=== PATIENT | male | born 1970 | race Caucasian/White ===

== ENCOUNTER 2016-10-17 11:58 | Emergency (ER) | payer MEDICAID ==
[~2016-10-17] VITALS: Ht 175.3 cm; Wt 72.6 kg
[~2016-10-17 11:58] MED LIST: ASPI-231; DIVA500T53 OR; DIVA500T53 PO; FAMO20TA58; GABA100C; LISI-646; LISI-709; LORA1TAB12 OR; METO-5 PO; OXCA150T3; PAXIL PO; PHEN100C70 PO; RESPERIDOL; SIMV-8 PO; TRAZADONE PO
[2016-10-17 12:10] VITALS: BP 120/69
== END 2016-10-17 15:37 | disposition home or self-care (01) ==
LOC: EDBD 11:58 → ER 12:11
DX: R53.1 Weakness (principal); N39.0 Urinary tract infection, site not specified; T40.605A Adverse effect of unspecified narcotics, initial encounter; Y92.9 Unspecified place or not applicable; G89.29 Other chronic pain; M25.572 Pain in left ankle and joints of left foot; M25.531 Pain in right wrist; F41.9 Anxiety disorder, unspecified; J44.9 Chronic obstructive pulmonary disease, unspecified; K21.9 Gastro-esophageal reflux disease without esophagitis; E78.5 Hyperlipidemia, unspecified; F15.10 Other stimulant abuse, uncomplicated; I10 Essential (primary) hypertension; F17.210 Nicotine dependence, cigarettes, uncomplicated; Z88.0 Allergy status to penicillin; Z88.1 Allergy status to other antibiotic agents
CPT/HCPCS: 81002; 93005

== ENCOUNTER 2017-01-15 23:18 | Emergency (ER) | payer MEDICAID ==
[~2017-01-15] VITALS: Ht 172.7 cm; Wt 72.6 kg
[2017-01-16 00:04] LABS: Basophils # (auto) 0 uL; Basophils % (auto) 0.6 % (0.0-2.0); Eosinophils # (auto) 0.3 uL; Eosinophils % (auto) 3.5 % (0.0-7.0); Hematocrit 47.8 % (41.0-53.0); Hemoglobin 15.7 g/dL (13.5-17.5); Lymphocytes # (auto) 3.1 uL; Mean Corpuscular Hemoglobin 29.4 pg (28.0-32.0); Mean Corpuscular Hgb Conc. 32.8 g/dL (32.0-36.0); Mean Corpuscular Volume 89.7 fL (80.0-100.0); Mean Platelet Volume 8.1 fL (7.4-10.4); Monocytes # (auto) 0.6 uL; Monocytes % (auto) 7.5 % (0.0-12.0); Neutrophils # (auto) 4.1 uL; Neutrophils % (auto) 50.4 % (37.0-80.0); Platelet Count (auto) 355 10^3/uL (140-450); Red Cell Distribution Width 13.3 % (11.6-16.0); White Blood Cell 8.1 10^3/uL (4.4-10.8)
[2017-01-16 00:16] LABS: Albumin 3.6 g/dL (3.4-5.0); Amylase 72 U/L (25-115); Anion Gap 9 (5-15); Aspartate Aminotransferase 27 U/L (15-37); BUN/Creatinine Ratio 12.7; Blood Urea Nitrogen 10 mg/dL (7-18); Calcium 8.2 mg/dL (8.5-10.1); Carbon Dioxide 25 mmol/L (21-32); Chloride 109 mmol/L (98-107); GFR African American 137 mL/min; GFR Non-African American 113 mL/min; Glucose 103 mg/dL (74-106); INR 0.97 (0.9-1.15); Partial Thromboplastin Time 25.1 sec (22.64-33.71); Prothrombin Time 10.6 sec (9.37-12.3); Sodium 143 mmol/L (136-145)
[2017-01-16 00:21] LABS: Alkaline Phosphatase 78 U/L (45-117); Bilirubin, Total 0.3 mg/dL (0.2-1.0); Total Protein 6.8 g/dL (6.4-8.2)
[2017-01-16] MEDS ORDERED: SODIUM CHLORIDE 0.9% 1,000 ML IVB ONE (08:38)
[2017-01-16] MEDS ORDERED: KETOROLAC TROMETH 30 MG/ML 1ML VIAL IV ONE (08:45)
[2017-01-16 08:58] VITALS: BP 132/79
== END 2017-01-16 10:02 | disposition home or self-care (01) ==
LOC: ER 23:18
DX: R10.32 Left lower quadrant pain (principal); R30.0 Dysuria; J44.9 Chronic obstructive pulmonary disease, unspecified; K21.9 Gastro-esophageal reflux disease without esophagitis; F15.10 Other stimulant abuse, uncomplicated; F12.10 Cannabis abuse, uncomplicated; R11.2 Nausea with vomiting, unspecified; E78.5 Hyperlipidemia, unspecified; Z88.2 Allergy status to sulfonamides; Z88.0 Allergy status to penicillin; F17.210 Nicotine dependence, cigarettes, uncomplicated; Z88.1 Allergy status to other antibiotic agents; Z86.73 Personal history of transient ischemic attack (TIA), and cerebral infarction without residual deficits
CPT/HCPCS: 36415; 74176; 80053; 82150; 83690; 84484; 85025; 85610; 85730; 93005; 94761; 96361; 96374; 99285; J1885; J7030

== ENCOUNTER 2017-03-09 00:14 | Emergency (ER) | payer MEDICAID ==
[~2017-03-09] VITALS: Ht 180.3 cm; Wt 70.3 kg
[2017-03-09 01:31] LABS: Urine Bilirubin Negative (Negative); Urine Blood 1+ /uL (Negative); Urine Color Yellow (Yellow); Urine Glucose Normal (Normal); Urine Ketone Negative (Negative); Urine Mucus FEW (None Seen); Urine Nitrite Negative (Negative); Urine RBC 5 /hpf (0 - 3); Urine Sperm PRESENT /hpf (None Seen); Urine Squamous Epithelial Cell FEW /hpf (<5); Urine Urobilinogen Normal (Negative)
[2017-03-09 01:45] LABS: Basophils # (auto) 0 uL; Basophils % (auto) 0.4 % (0.0-2.0); CONDITION Y; Eosinophils # (auto) 0.1 uL; Eosinophils % (auto) 1.4 % (0.0-7.0); Hemoglobin 16.2 g/dL (13.5-17.5); Mean Corpuscular Hemoglobin 30.5 pg (28.0-32.0); Mean Corpuscular Hgb Conc. 33.8 g/dL (32.0-36.0); Mean Corpuscular Volume 90.2 fL (80.0-100.0); Mean Platelet Volume 7.8 fL (7.4-10.4); Monocytes # (auto) 0.7 uL; Monocytes % (auto) 8.4 % (0.0-12.0); Neutrophils # (auto) 5.6 uL; Neutrophils % (auto) 65.8 % (37.0-80.0); Platelet Count (auto) 348 10^3/uL (140-450); Red Cell Distribution Width 14.3 % (11.6-16.0); White Blood Cell 8.4 10^3/uL (4.4-10.8)
[2017-03-09 02:57] LABS: Albumin 4.3 g/dL (3.4-5.0); BUN/Creatinine Ratio 30.3; Bilirubin, Total 0.8 mg/dL (0.2-1.0); Calcium 8.8 mg/dL (8.5-10.1); Potassium 3.7 mmol/L (3.5-5.1); Total Protein 7.6 g/dL (6.4-8.2)
[2017-03-09 05:53] VITALS: BP 134/77
[2017-03-09] MEDS ORDERED: KETOROLAC TROMETH 60MG/2ML VIAL IM ONE (06:45)
== END 2017-03-09 08:39 | disposition home or self-care (01) ==
LOC: EDSEX 00:14 → EDBD 00:14 → ER 00:15
DX: R10.9 Unspecified abdominal pain (principal); R31.9 Hematuria, unspecified; F17.210 Nicotine dependence, cigarettes, uncomplicated; R19.7 Diarrhea, unspecified; E78.5 Hyperlipidemia, unspecified; I10 Essential (primary) hypertension; Z88.0 Allergy status to penicillin; Z88.1 Allergy status to other antibiotic agents; Z79.899 Other long term (current) drug therapy; Z79.82 Long term (current) use of aspirin; Z87.442 Personal history of urinary calculi
CPT/HCPCS: 36415; 80053; 81001; 85025; 96372; 99284; J1885

== ENCOUNTER 2017-04-06 14:35 | Emergency (ER) | payer MEDICAID ==
[~2017-04-06] VITALS: Ht 175.3 cm; Wt 77.1 kg
[2017-04-06 17:00] VITALS: BP 146/91
[2017-04-06] MEDS ORDERED: SODIUM CHLORIDE 0.9% 1,000 ML IV ONE ×2 (19:15→22:00)
[2017-04-06 19:57] LABS: Basophils # (auto) 0 uL; Basophils % (auto) 0.3 % (0.0-2.0); Eosinophils # (auto) 0.1 uL; Hematocrit 43.9 % (41.0-53.0); Lymphocytes # (auto) 2.8 uL; Lymphocytes % (auto) 35.1 % (10.0-50.0); Mean Corpuscular Hemoglobin 31.1 pg (28.0-32.0); Mean Corpuscular Hgb Conc. 34.1 g/dL (32.0-36.0); Mean Corpuscular Volume 91.2 fL (80.0-100.0); Mean Platelet Volume 7.4 fL (6.9-10.8); Monocytes # (auto) 0.9 uL; Monocytes % (auto) 11.6 % (0.0-12.0); Neutrophils # (auto) 4.1 uL; Platelet Count (auto) 276 10^3/uL (140-450); Red Cell Distribution Width 13.7 % (11.8-14.3); White Blood Cell 7.9 10^3/uL (4.4-10.8)
[2017-04-06 20:08] LABS: Amylase 56 U/L (25-115)
[2017-04-06 21:24] LABS: Albumin 3.7 g/dL (3.4-5.0); BUN/Creatinine Ratio 28.2; Bilirubin, Total 1.7 mg/dL (0.2-1.0); Calcium 7.7 mg/dL (8.5-10.1); Potassium 3.3 mmol/L (3.5-5.1); Total Protein 6.5 g/dL (6.4-8.2)
[2017-04-06 21:51] LABS: Urine Bilirubin Negative (Negative); Urine Blood 1+ /uL (Negative); Urine Color Yellow (Yellow); Urine Glucose Normal (Normal); Urine Ketone 1+ (Negative); Urine Mucus FEW (None Seen); Urine Nitrite Negative (Negative); Urine RBC 4 /hpf (0 - 3); Urine Urobilinogen Normal (Negative); Urine pH 5.5 (5.0-8.0)
[2017-04-06] MEDS ORDERED: KETOROLAC TROMETH 30 MG/ML 1ML VIAL IV ONE (22:00)
== END 2017-04-06 22:55 | disposition home or self-care (01) ==
LOC: ER 14:35 → EDBD 14:35 → ER 22:55
DX: N39.0 Urinary tract infection, site not specified (principal); E86.0 Dehydration; J44.9 Chronic obstructive pulmonary disease, unspecified; K21.9 Gastro-esophageal reflux disease without esophagitis; E78.5 Hyperlipidemia, unspecified; I10 Essential (primary) hypertension; F17.210 Nicotine dependence, cigarettes, uncomplicated; Z87.442 Personal history of urinary calculi; Z88.1 Allergy status to other antibiotic agents; Z79.899 Other long term (current) drug therapy; Z88.0 Allergy status to penicillin
CPT/HCPCS: 36415; 74176; 80053; 81001; 82150; 83690; 85025; 96361; 96374; 99285; J1885; J7030

== ENCOUNTER 2017-04-19 19:22 | Emergency (ER) | payer MEDICAID ==
[~2017-04-19] VITALS: Ht 175.3 cm; Wt 68.0 kg
[2017-04-19 21:41] LABS: Basophils # (auto) 0.1 uL; Basophils % (auto) 0.6 % (0.0-2.0); Eosinophils # (auto) 0.3 uL; Eosinophils % (auto) 3.4 % (0.0-7.0); Hemoglobin 15.5 g/dL (13.5-17.5); Lymphocytes # (auto) 2.7 uL; Lymphocytes % (auto) 29.5 % (10.0-50.0); Mean Corpuscular Hgb Conc. 33.7 g/dL (32.0-36.0); Mean Platelet Volume 7.4 fL (6.9-10.8); Monocytes # (auto) 0.8 uL; Monocytes % (auto) 8.5 % (0.0-12.0); Neutrophils # (auto) 5.2 uL; Nucleated Red Blood Cells % 0.2 %; Platelet Count (auto) 245 10^3/uL (140-450); Red Cell Distribution Width 14.2 % (11.8-14.3)
[2017-04-19 21:50] LABS: Urine Bilirubin Negative (Negative); Urine Blood Negative /uL (Negative); Urine Color Yellow (Yellow); Urine Glucose Normal (Normal); Urine Ketone Negative (Negative); Urine Nitrite Negative (Negative); Urine RBC 1 /hpf (0 - 3); Urine Urobilinogen Normal (Negative)
[2017-04-19 22:01] LABS: Acetaminophen < 2.0 ug/mL (10-30); Albumin 3.9 g/dL (3.4-5.0); Amylase 79 U/L (25-115); Anion Gap 8 (5-15); Blood Urea Nitrogen 16 mg/dL (7-18); Calcium 8.9 mg/dL (8.5-10.1); Carbon Dioxide 27 mmol/L (21-32); Chloride 109 mmol/L (98-107); Glucose 97 mg/dL (74-106); Magnesium 2.3 mg/dL (1.6-2.6); Potassium 4.2 mmol/L (3.5-5.1); Salicylate 1.8 mg/dL (2.8-20.0); Sodium 144 mmol/L (136-145)
[2017-04-19 22:03] LABS: Aspartate Aminotransferase 25 U/L (15-37); BUN/Creatinine Ratio 21.6; GFR African American 148 mL/min; GFR Non-African American 122 mL/min
[2017-04-19 22:05] LABS: Alkaline Phosphatase 70 U/L (45-117); Bilirubin, Total 0.3 mg/dL (0.2-1.0); Total Protein 6.6 g/dL (6.4-8.2)
[2017-04-20 07:42] VITALS: BP 162/85
== END 2017-04-20 10:19 | disposition home or self-care (01) ==
LOC: ER 19:25
DX: K59.01 Slow transit constipation (principal); G40.909 Epilepsy, unspecified, not intractable, without status epilepticus; F31.9 Bipolar disorder, unspecified; T88.7XXA Unspecified adverse effect of drug or medicament, initial encounter; J44.9 Chronic obstructive pulmonary disease, unspecified; K21.9 Gastro-esophageal reflux disease without esophagitis; E78.5 Hyperlipidemia, unspecified; I10 Essential (primary) hypertension; F12.10 Cannabis abuse, uncomplicated; F15.10 Other stimulant abuse, uncomplicated; Z88.0 Allergy status to penicillin; Z91.010 Allergy to peanuts; Z88.1 Allergy status to other antibiotic agents; Z91.018 Allergy to other foods; X58.XXXA Exposure to other specified factors, initial encounter
CPT/HCPCS: 36415; 74176; 80053; 80307; 80320; 80329; 81001; 82150; 83690; 83735; 84484; 85025

== ENCOUNTER 2017-06-16 16:30 | Emergency (ER) | payer MEDICAID ==
[~2017-06-16] VITALS: Ht 175.3 cm; Wt 68.9 kg
[2017-06-16 18:45] VITALS: BP 116/77
[2017-06-16] MEDS: ONDANSETRON HCL 4 MG/2 ML VIAL IM ONE (19:16)
[2017-06-16] MEDS: IBUPROFEN 600 MG TAB PO ONE (19:17)
== END 2017-06-16 19:32 | disposition home or self-care (01) ==
LOC: ER 16:30 → EDBD 16:30 → ER 19:32
DX: H92.02 Otalgia, left ear (principal); J44.9 Chronic obstructive pulmonary disease, unspecified; R10.84 Generalized abdominal pain; R11.2 Nausea with vomiting, unspecified; K21.9 Gastro-esophageal reflux disease without esophagitis; E78.5 Hyperlipidemia, unspecified; I10 Essential (primary) hypertension; F17.210 Nicotine dependence, cigarettes, uncomplicated; Z88.2 Allergy status to sulfonamides; Z88.1 Allergy status to other antibiotic agents; Z86.73 Personal history of transient ischemic attack (TIA), and cerebral infarction without residual deficits; Z79.899 Other long term (current) drug therapy; Z88.0 Allergy status to penicillin; Z79.82 Long term (current) use of aspirin
CPT/HCPCS: 96372; 99283; J2405

== ENCOUNTER 2017-06-17 00:43 | Emergency (ER) | payer MEDICAID ==
[~2017-06-17] VITALS: Ht 175.3 cm; Wt 68.0 kg
[2017-06-17 01:23] LABS: Basophils # (auto) 0.3 uL; Basophils % (auto) 3.8 % (0.0-2.0); Eosinophils # (auto) 0.1 uL; Eosinophils % (auto) 1.6 % (0.0-7.0); Hematocrit 49.3 % (41.0-53.0); Hemoglobin 16.7 g/dL (13.5-17.5); Lymphocytes # (auto) 1.1 uL; Lymphocytes % (auto) 13.3 % (10.0-50.0); Mean Corpuscular Hemoglobin 30.9 pg (28.0-32.0); Mean Corpuscular Hgb Conc. 33.9 g/dL (32.0-36.0); Mean Platelet Volume 7.1 fL (6.9-10.8); Monocytes # (auto) 1.2 uL; Monocytes % (auto) 15.2 % (0.0-12.0); Neutrophils # (auto) 5.2 uL; Neutrophils % (auto) 66.1 % (37.0-80.0); Nucleated Red Blood Cells % 0.1 %; Platelet Count (auto) 303 10^3/uL (140-450); Red Cell Distribution Width 14.1 % (11.8-14.3); White Blood Cell 7.9 10^3/uL (4.4-10.8)
[2017-06-17 01:42] LABS: Albumin 3.9 g/dL (3.4-5.0); BUN/Creatinine Ratio 24.1; Calcium 8.8 mg/dL (8.5-10.1); Potassium 3.9 mmol/L (3.5-5.1)
[2017-06-17 01:44] LABS: Bilirubin, Total 0.7 mg/dL (0.2-1.0); Total Protein 7.6 g/dL (6.4-8.2)
[2017-06-17 07:25] VITALS: BP 132/84
== END 2017-06-17 07:47 | disposition home or self-care (01) ==
LOC: ER 00:45
DX: R10.11 Right upper quadrant pain (principal); H92.02 Otalgia, left ear; Z88.2 Allergy status to sulfonamides; Z88.1 Allergy status to other antibiotic agents; Z91.010 Allergy to peanuts; Z88.0 Allergy status to penicillin; Z91.013 Allergy to seafood
CPT/HCPCS: 36415; 80053; 82150; 83690; 85025

== ENCOUNTER 2017-07-11 18:06 | Emergency (ER) | payer MEDICAID ==
[~2017-07-11] VITALS: Ht 180.3 cm; Wt 74.8 kg
[2017-07-11 18:46] LABS: Basophils # (auto) 0 uL; Basophils % (auto) 0.3 % (0.0-2.0); Eosinophils # (auto) 0.4 uL; Eosinophils % (auto) 5.1 % (0.0-7.0); Hemoglobin 16.6 g/dL (13.5-17.5); Lymphocytes # (auto) 2.4 uL; Lymphocytes % (auto) 30.8 % (10.0-50.0); Mean Corpuscular Hemoglobin 30.2 pg (28.0-32.0); Mean Corpuscular Hgb Conc. 33.2 g/dL (32.0-36.0); Mean Corpuscular Volume 91.2 fL (80.0-100.0); Monocytes # (auto) 0.6 uL; Neutrophils # (auto) 4.3 uL; Neutrophils % (auto) 55.8 % (37.0-80.0); Nucleated Red Blood Cells % 0.2 %; Platelet Count (auto) 291 10^3/uL (140-450); Red Blood Cells 5.48 10^6/uL (4.5-5.90); Red Cell Distribution Width 13.8 % (11.8-14.3); White Blood Cell 7.7 10^3/uL (4.4-10.8)
[2017-07-11 19:01] LABS: BUN/Creatinine Ratio 10.3; Calcium 8.6 mg/dL (8.5-10.1); Potassium 4.1 mmol/L (3.5-5.1)
[2017-07-11 19:04] LABS: Bilirubin, Total 0.5 mg/dL (0.2-1.0); Total Protein 7.4 g/dL (6.4-8.2)
[2017-07-12] MEDS ORDERED: SODIUM CHLORIDE 0.9% 1,000 ML IVB ONE (07:08)
[2017-07-12] MEDS ORDERED: PROMETHAZINE HCL 25 MG/ML 1ML IV PRN (07:15)
[2017-07-12] MEDS ORDERED: KETOROLAC TROMETH 30 MG/ML 1ML VIAL IV ONE (07:15)
[2017-07-12 09:30] VITALS: BP 128/77
[2017-07-12 10:04] LABS: Urine Blood Negative /uL (Negative); Urine Specific Gravity 1.012 (1.001-1.035)
[2017-07-12 10:12] LABS: Urine Bacteria None Seen /hpf (None Seen); Urine WBC None Seen /hpf (0 - 3)
== END 2017-07-12 10:36 | disposition home or self-care (01) ==
LOC: EDBD 18:06 → EEVIPCON 18:43 → ER 18:43
DX: K59.01 Slow transit constipation (principal); R56.9 Unspecified convulsions; K21.9 Gastro-esophageal reflux disease without esophagitis; J44.9 Chronic obstructive pulmonary disease, unspecified; I10 Essential (primary) hypertension; F17.210 Nicotine dependence, cigarettes, uncomplicated; E78.5 Hyperlipidemia, unspecified; Z86.73 Personal history of transient ischemic attack (TIA), and cerebral infarction without residual deficits; Z79.82 Long term (current) use of aspirin; Z88.0 Allergy status to penicillin; Z91.013 Allergy to seafood; Z88.2 Allergy status to sulfonamides
CPT/HCPCS: 36415; 74176; 80053; 81001; 82150; 83735; 85025; 96361; 96374; 99285; J1885; J7030

== ENCOUNTER 2017-07-22 16:52 | Emergency (ER) | payer MEDICAID ==
[~2017-07-22] VITALS: Ht 177.8 cm; Wt 81.6 kg
[2017-07-22 22:17] LABS: Basophils # (auto) 0.1 uL; Basophils % (auto) 0.6 % (0.0-2.0); Eosinophils # (auto) 0.2 uL; Eosinophils % (auto) 2.1 % (0.0-7.0); Hematocrit 50.5 % (41.0-53.0); Lymphocytes # (auto) 3.2 uL; Lymphocytes % (auto) 31.3 % (10.0-50.0); Mean Corpuscular Hemoglobin 30.7 pg (28.0-32.0); Mean Corpuscular Hgb Conc. 33.7 g/dL (32.0-36.0); Mean Corpuscular Volume 90.9 fL (80.0-100.0); Monocytes # (auto) 0.9 uL; Monocytes % (auto) 8.3 % (0.0-12.0); Neutrophils # (auto) 5.9 uL; Neutrophils % (auto) 57.7 % (37.0-80.0); Nucleated Red Blood Cells % 0.1 %; Platelet Count (auto) 320 10^3/uL (140-450); Red Blood Cells 5.56 10^6/uL (4.5-5.90); Red Cell Distribution Width 14.1 % (11.8-14.3); White Blood Cell 10.2 10^3/uL (4.4-10.8)
[2017-07-22 22:25] LABS: Albumin 4.3 g/dL (3.4-5.0); BUN/Creatinine Ratio 27.5; Calcium 9.2 mg/dL (8.5-10.1); Potassium 3.8 mmol/L (3.5-5.1)
[2017-07-22 22:27] LABS: Bilirubin, Total 0.6 mg/dL (0.2-1.0); Total Protein 7.6 g/dL (6.4-8.2)
[2017-07-22 22:44] LABS: Urine Bacteria NONE SEEN /hpf (None Seen); Urine Blood 1+ /uL (Negative); Urine Mucus FEW (None Seen); Urine Specific Gravity 1.031 (1.001-1.035); Urine WBC 7 /hpf (0 - 3)
[2017-07-22 22:56] LABS: Alcohol, Urine < 3.0 mg/dL (0-5); Amphetamine Screen, Urine NEGATIVE (NEGATIVE); Barbiturate Scree,Urine NEGATIVE (NEGATIVE); Benzodiazephine Screen, Urine NEGATIVE (NEGATIVE); Cannabinoid Screen, Urine NEGATIVE (NEGATIVE); Cocaine Screen, Urine NEGATIVE (NEGATIVE); Opiate Scree,Urine NEGATIVE (NEGATIVE); Phencyclidine Screen, Urine NEGATIVE (NEGATIVE)
[2017-07-23 00:02] VITALS: BP 139/78
[2017-07-23] MEDS ORDERED: MAGNESIUM CITRATE SOLUTION 300 ML BTL ONE (00:04)
[2017-07-23] MEDS ORDERED: MAGNESIUM CITRATE SOLUTION 300 ML BTL PO ONE (00:15)
== END 2017-07-23 00:55 | disposition home or self-care (01) ==
LOC: EDBD 16:52 → ER 16:52
DX: K59.00 Constipation, unspecified (principal); R10.31 Right lower quadrant pain; J44.9 Chronic obstructive pulmonary disease, unspecified; K21.9 Gastro-esophageal reflux disease without esophagitis; E78.5 Hyperlipidemia, unspecified; I10 Essential (primary) hypertension; F17.210 Nicotine dependence, cigarettes, uncomplicated; Z59.0 Homelessness; Z88.1 Allergy status to other antibiotic agents; Z91.013 Allergy to seafood
CPT/HCPCS: 36415; 74176; 80053; 80307; 81001; 82150; 83690; 85025

== ENCOUNTER 2017-07-23 03:00 | Emergency (ER) | payer MEDICAID ==
[~2017-07-23] VITALS: Ht 175.3 cm; Wt 68.0 kg
[2017-07-23 03:09] VITALS: BP 133/85
== END 2017-07-23 04:07 | disposition home or self-care (01) ==
LOC: EDBD 03:00 → ER 03:03
DX: K59.00 Constipation, unspecified (principal); K21.9 Gastro-esophageal reflux disease without esophagitis; J44.9 Chronic obstructive pulmonary disease, unspecified; I10 Essential (primary) hypertension; E78.5 Hyperlipidemia, unspecified; F17.210 Nicotine dependence, cigarettes, uncomplicated; Z59.0 Homelessness; Z86.73 Personal history of transient ischemic attack (TIA), and cerebral infarction without residual deficits; Z79.82 Long term (current) use of aspirin; Z88.0 Allergy status to penicillin; Z91.010 Allergy to peanuts; Z91.013 Allergy to seafood; Z88.2 Allergy status to sulfonamides; Z91.018 Allergy to other foods

== ENCOUNTER 2017-07-26 23:20 | Emergency (ER) | payer MEDICAID ==
[~2017-07-26] VITALS: Ht 175.3 cm; Wt 68.0 kg
[2017-07-27 03:46] LABS: Basophils # (auto) 0 uL; Basophils % (auto) 0.4 % (0.0-2.0); Eosinophils # (auto) 0.1 uL; Eosinophils % (auto) 0.5 % (0.0-7.0); Hematocrit 44.1 % (41.0-53.0); Hemoglobin 14.9 g/dL (13.5-17.5); Lymphocytes # (auto) 2.9 uL; Lymphocytes % (auto) 24.8 % (10.0-50.0); Mean Corpuscular Hemoglobin 30.2 pg (28.0-32.0); Mean Corpuscular Hgb Conc. 33.7 g/dL (32.0-36.0); Mean Corpuscular Volume 89.6 fL (80.0-100.0); Monocytes # (auto) 1.3 uL; Monocytes % (auto) 11.2 % (0.0-12.0); Neutrophils # (auto) 7.3 uL; Neutrophils % (auto) 63.1 % (37.0-80.0); Platelet Count (auto) 274 10^3/uL (140-450); Red Blood Cells 4.93 10^6/uL (4.5-5.90); Red Cell Distribution Width 13.9 % (11.8-14.3); White Blood Cell 11.6 10^3/uL (4.4-10.8)
[2017-07-27 04:02] LABS: Albumin 4.2 g/dL (3.4-5.0); BUN/Creatinine Ratio 26.7; Bilirubin, Total 2.1 mg/dL (0.2-1.0); Calcium 8.8 mg/dL (8.5-10.1); Potassium 3.7 mmol/L (3.5-5.1)
[2017-07-27 09:13] LABS: Urine Bacteria NONE SEEN /hpf (None Seen); Urine Blood TRACE /uL (Negative); Urine Mucus FEW (None Seen); Urine Specific Gravity 1.029 (1.001-1.035); Urine WBC 3 /hpf (0 - 3)
[2017-07-27 09:23] LABS: Alcohol, Urine < 3.0 mg/dL (0-5); Amphetamine Screen, Urine POSITIVE (NEGATIVE); Barbiturate Scree,Urine NEGATIVE (NEGATIVE); Benzodiazephine Screen, Urine NEGATIVE (NEGATIVE); Cannabinoid Screen, Urine NEGATIVE (NEGATIVE); Cocaine Screen, Urine NEGATIVE (NEGATIVE); Opiate Scree,Urine NEGATIVE (NEGATIVE); Phencyclidine Screen, Urine NEGATIVE (NEGATIVE)
[2017-07-27 11:06] VITALS: BP 122/66
== END 2017-07-27 11:08 | disposition home or self-care (01) ==
LOC: EDBD 23:20 → ER 23:38
DX: F15.10 Other stimulant abuse, uncomplicated (principal); J44.9 Chronic obstructive pulmonary disease, unspecified; E78.5 Hyperlipidemia, unspecified; I10 Essential (primary) hypertension; Z59.0 Homelessness; F17.210 Nicotine dependence, cigarettes, uncomplicated; Z88.0 Allergy status to penicillin; K21.9 Gastro-esophageal reflux disease without esophagitis; Z91.013 Allergy to seafood; Z88.8 Allergy status to other drugs, medicaments and biological substances; Z79.82 Long term (current) use of aspirin
CPT/HCPCS: 36415; 74176; 80053; 80307; 81001; 82150; 83690; 85025

== ENCOUNTER 2017-10-04 18:28 | Emergency (ER) | payer MEDICAID ==
[~2017-10-04] VITALS: Ht 175.3 cm; Wt 68.0 kg
[2017-10-04 19:08] LABS: Basophils # (auto) 0.1 uL; Basophils % (auto) 1.2 % (0.0-2.0); Eosinophils # (auto) 0.2 uL; Eosinophils % (auto) 2.4 % (0.0-7.0); Hemoglobin 16.3 g/dL (13.5-17.5); Lymphocytes # (auto) 1.7 uL; Lymphocytes % (auto) 24.6 % (10.0-50.0); Mean Corpuscular Hemoglobin 30.8 pg (28.0-32.0); Mean Corpuscular Hgb Conc. 33.2 g/dL (32.0-36.0); Mean Corpuscular Volume 92.7 fL (80.0-100.0); Monocytes # (auto) 0.7 uL; Monocytes % (auto) 9.8 % (0.0-12.0); Neutrophils # (auto) 4.2 uL; Nucleated Red Blood Cells % 0.2 %; Platelet Count (auto) 322 10^3/uL (140-450); Red Blood Cells 5.28 10^6/uL (4.5-5.90); Red Cell Distribution Width 14.7 % (11.8-14.3); White Blood Cell 6.8 10^3/uL (4.4-10.8)
[2017-10-04 19:28] LABS: Albumin 3.7 g/dL (3.4-5.0); BUN/Creatinine Ratio 18.4; Bilirubin, Total 0.3 mg/dL (0.2-1.0); Calcium 8.4 mg/dL (8.5-10.1); Potassium 3.6 mmol/L (3.5-5.1); Total Protein 6.8 g/dL (6.4-8.2)
[2017-10-05 02:15] VITALS: BP 132/82
== END 2017-10-05 02:27 | disposition home or self-care (01) ==
LOC: EDBD 18:28 → ER 18:33
DX: K21.9 Gastro-esophageal reflux disease without esophagitis (principal); J44.9 Chronic obstructive pulmonary disease, unspecified; E78.5 Hyperlipidemia, unspecified; I10 Essential (primary) hypertension; F17.210 Nicotine dependence, cigarettes, uncomplicated; Z59.0 Homelessness; Z88.1 Allergy status to other antibiotic agents; Z88.0 Allergy status to penicillin
CPT/HCPCS: 36415; 71045; 80053; 85025; 93005

== ENCOUNTER 2017-10-11 17:54 | Emergency (ER) | payer MEDICAID ==
[~2017-10-11] VITALS: Ht 175.3 cm; Wt 68.0 kg
[2017-10-11 19:05] VITALS: BP 113/82
[2017-10-11] MEDS ORDERED: TETANUS-DIPTH-ACEL PERTUSSIS 0.5ML SYRG IM ONE ×2 (19:30→19:31)
== END 2017-10-11 21:19 | disposition home or self-care (01) ==
LOC: ER 18:01
DX: S81.811A Laceration without foreign body, right lower leg, initial encounter (principal); M25.521 Pain in right elbow; I10 Essential (primary) hypertension; J44.9 Chronic obstructive pulmonary disease, unspecified; K21.9 Gastro-esophageal reflux disease without esophagitis; J45.909 Unspecified asthma, uncomplicated; E78.00 Pure hypercholesterolemia, unspecified; F17.210 Nicotine dependence, cigarettes, uncomplicated; Z86.73 Personal history of transient ischemic attack (TIA), and cerebral infarction without residual deficits; Z88.0 Allergy status to penicillin; Z88.1 Allergy status to other antibiotic agents; Z88.2 Allergy status to sulfonamides; Z88.8 Allergy status to other drugs, medicaments and biological substances; Z79.82 Long term (current) use of aspirin; Z79.891 Long term (current) use of opiate analgesic; Z79.899 Other long term (current) drug therapy; Z59.0 Homelessness; W26.8XXA Contact with other sharp object(s), not elsewhere classified, initial encounter; Y93.89 Activity, other specified; Y99.8 Other external cause status; Y92.89 Other specified places as the place of occurrence of the external cause
CPT/HCPCS: 12001; 73070; 90471; 90715

== ENCOUNTER 2017-11-20 15:39 | Emergency (ER) | payer MEDICAID ==
[~2017-11-20] VITALS: Ht 175.3 cm; Wt 68.0 kg
[2017-11-20 15:44] VITALS: BP 143/70
[2017-11-20 16:18] LABS: Basophils # (auto) 0.1 uL; Eosinophils # (auto) 0.3 uL; Eosinophils % (auto) 3.3 % (0.0-7.0); Hematocrit 49.1 % (41.0-53.0); Lymphocytes % (auto) 23.5 % (10.0-50.0); Mean Corpuscular Hemoglobin 31.7 pg (28.0-32.0); Mean Corpuscular Hgb Conc. 34.5 g/dL (32.0-36.0); Mean Corpuscular Volume 91.8 fL (80.0-100.0); Monocytes # (auto) 0.9 uL; Monocytes % (auto) 10.7 % (0.0-12.0); Neutrophils # (auto) 5.2 uL; Neutrophils % (auto) 61.5 % (37.0-80.0); Nucleated Red Blood Cells % 0.1 %; Platelet Count (auto) 291 10^3/uL (140-450); Red Blood Cells 5.35 10^6/uL (4.5-5.90); Red Cell Distribution Width 13.9 % (11.8-14.3); White Blood Cell 8.4 10^3/uL (4.4-10.8)
[2017-11-20 16:44] LABS: Albumin 4.1 g/dL (3.4-5.0); BUN/Creatinine Ratio 23.2; Bilirubin, Total 1.1 mg/dL (0.2-1.0); Calcium 8.8 mg/dL (8.5-10.1); Total Protein 7.4 g/dL (6.4-8.2)
== END 2017-11-20 17:01 | disposition home or self-care (01) ==
LOC: EDBD 15:39 → EDSEX 15:39 → ER 15:42
DX: R10.31 Right lower quadrant pain (principal); F17.210 Nicotine dependence, cigarettes, uncomplicated; J44.9 Chronic obstructive pulmonary disease, unspecified; K21.9 Gastro-esophageal reflux disease without esophagitis; E78.5 Hyperlipidemia, unspecified; I10 Essential (primary) hypertension; K92.1 Melena; Z79.82 Long term (current) use of aspirin; Z88.1 Allergy status to other antibiotic agents; Z91.013 Allergy to seafood; Z86.73 Personal history of transient ischemic attack (TIA), and cerebral infarction without residual deficits; Z88.0 Allergy status to penicillin; Z79.899 Other long term (current) drug therapy; Z59.0 Homelessness
CPT/HCPCS: 36415; 80053; 85025

== ENCOUNTER 2018-04-12 16:19 | Emergency (ER) | payer MEDICAID ==
[~2018-04-12] VITALS: Ht 175.3 cm; Wt 68.0 kg
[2018-04-12 16:26] VITALS: BP 137/73
== END 2018-04-12 17:54 | disposition home or self-care (01) ==
LOC: EDBD 16:19 → ER 16:19
DX: S51.002D Unspecified open wound of left elbow, subsequent encounter (principal); F17.210 Nicotine dependence, cigarettes, uncomplicated; F12.10 Cannabis abuse, uncomplicated; J44.9 Chronic obstructive pulmonary disease, unspecified; I10 Essential (primary) hypertension; E78.5 Hyperlipidemia, unspecified; K21.9 Gastro-esophageal reflux disease without esophagitis; Z59.0 Homelessness; X58.XXXD Exposure to other specified factors, subsequent encounter; Z88.2 Allergy status to sulfonamides; Z88.0 Allergy status to penicillin; Z88.8 Allergy status to other drugs, medicaments and biological substances

== ENCOUNTER 2018-05-04 16:09 | Emergency (ER) | payer MEDICAID ==
[~2018-05-04] VITALS: Ht 175.3 cm; Wt 61.2 kg
[2018-05-04 18:46] VITALS: BP 117/85
[2018-05-04 20:30] LABS: Basophils # (auto) 0 uL; Basophils % (auto) 0.5 % (0.0-2.0); Eosinophils # (auto) 0.3 uL; Hematocrit 49.8 % (41.0-53.0); Hemoglobin 16.4 g/dL (13.5-17.5); Lymphocytes # (auto) 2.6 uL; Lymphocytes % (auto) 33.3 % (10.0-50.0); Mean Corpuscular Hemoglobin 30.8 pg (28.0-32.0); Mean Corpuscular Volume 93.4 fL (80.0-100.0); Monocytes # (auto) 0.8 uL; Monocytes % (auto) 10.2 % (0.0-12.0); Neutrophils # (auto) 4.1 uL; Nucleated Red Blood Cells % 0.1 %; Platelet Count (auto) 249 10^3/uL (140-450); Red Blood Cells 5.34 10^6/uL (4.5-5.90); Red Cell Distribution Width 14.1 % (11.8-14.3); White Blood Cell 7.8 10^3/uL (4.4-10.8)
[2018-05-04 20:47] LABS: Albumin 3.3 g/dL (3.4-5.0); BUN/Creatinine Ratio 13.2; Calcium 8.5 mg/dL (8.5-10.1); Potassium 4.1 mmol/L (3.5-5.1)
[2018-05-04 20:55] LABS: Bilirubin, Total 0.4 mg/dL (0.2-1.0); Total Protein 6.2 g/dL (6.4-8.2)
[2018-05-04] MEDS ORDERED: IOHEXOL 300 MG/ML 100ML BOTTLE IJ ONE (21:03)
== END 2018-05-04 22:02 | disposition home or self-care (01) ==
LOC: EDBD 16:09 → EDUNIT# 16:09 → ER 16:12
DX: R10.31 Right lower quadrant pain (principal); B02.9 Zoster without complications; R11.0 Nausea; E78.5 Hyperlipidemia, unspecified; K21.9 Gastro-esophageal reflux disease without esophagitis; I10 Essential (primary) hypertension; J44.9 Chronic obstructive pulmonary disease, unspecified; F17.210 Nicotine dependence, cigarettes, uncomplicated; F15.90 Other stimulant use, unspecified, uncomplicated; Z88.1 Allergy status to other antibiotic agents; Z88.2 Allergy status to sulfonamides; Z88.0 Allergy status to penicillin; Z91.010 Allergy to peanuts; Z91.013 Allergy to seafood; Z79.899 Other long term (current) drug therapy; Z79.82 Long term (current) use of aspirin; Z86.73 Personal history of transient ischemic attack (TIA), and cerebral infarction without residual deficits; Z59.0 Homelessness
CPT/HCPCS: 36415; 74177; 76705; 80053; 83690; 85025; 99285; Q9967

== ENCOUNTER 2018-06-05 19:05 | Emergency (ER) | payer MEDICAID ==
[~2018-06-05] VITALS: Ht 175.3 cm; Wt 81.6 kg
[2018-06-05 20:42] LABS: Eosinophils # (auto) 0.2 uL; Lymphocytes # (auto) 1.8 uL; Red Blood Cells 5.73 10^6/uL (4.5-5.90); White Blood Cell 11.9 10^3/uL (4.4-10.8)
[2018-06-05 20:43] LABS: Basophils # (auto) 0 uL; Basophils % (auto) 0.3 % (0.0-2.0); Eosinophils % (auto) 1.9 % (0.0-7.0); Hematocrit 53.5 % (41.0-53.0); Hemoglobin 18.1 g/dL (13.5-17.5); Lymphocytes % (auto) 15.1 % (10.0-50.0); Mean Corpuscular Hemoglobin 31.6 pg (28.0-32.0); Mean Corpuscular Hgb Conc. 33.9 g/dL (32.0-36.0); Mean Corpuscular Volume 93.4 fL (80.0-100.0); Monocytes % (auto) 8.3 % (0.0-12.0); Neutrophils # (auto) 8.9 uL; Neutrophils % (auto) 74.4 % (37.0-80.0); Platelet Count (auto) 294 10^3/uL (140-450); Red Cell Distribution Width 14.3 % (11.8-14.3)
[2018-06-05 20:54] LABS: Alanine Aminotransferase 40 U/L (16-61); Amylase 60 U/L (25-115); Anion Gap 9 (5-15); Aspartate Aminotransferase 37 U/L (15-37); BUN/Creatinine Ratio 20.3; Blood Urea Nitrogen 16 mg/dL (7-18); Calcium 9.2 mg/dL (8.5-10.1); Carbon Dioxide 28 mmol/L (21-32); Chloride 103 mmol/L (98-107); GFR African American 136 mL/min; GFR Non-African American 113 mL/min; Glucose 102 mg/dL (74-106); Lipase 142 U/L (73-393); Magnesium 2.6 mg/dL (1.6-2.6); Potassium 3.9 mmol/L (3.5-5.1); Sodium 140 mmol/L (136-145)
[2018-06-05 21:00] LABS: Alkaline Phosphatase 86 U/L (45-117); Bilirubin, Total 1.2 mg/dL (0.2-1.0); Total Protein 7.3 g/dL (6.4-8.2)
[2018-06-05] MEDS ORDERED: SODIUM CHLORIDE 0.9% 1,000 ML IV ONE (23:15)
[2018-06-05] MEDS ORDERED: MORPHINE SULFATE 4 MG/ML SYR/VIAL IV ONE (23:15)
[2018-06-05] MEDS ORDERED: ONDANSETRON HCL 4 MG/2 ML VIAL IV ONE (23:15)
[2018-06-06] MEDS ORDERED: cefTRIAXone 1GM/50ML D5W 50 ML IV ONE ×2 (01:45→02:00)
[2018-06-06] MEDS ORDERED: metroNIDAZOLE 500 MG TAB PO ONE ×2 (01:45→02:00)
[2018-06-06 02:12] VITALS: BP 109/54
== END 2018-06-06 02:52 | disposition home or self-care (01) ==
LOC: EDBD 19:05 → ER 19:13
DX: K52.9 Noninfective gastroenteritis and colitis, unspecified (principal); I88.0 Nonspecific mesenteric lymphadenitis; J44.9 Chronic obstructive pulmonary disease, unspecified; E78.5 Hyperlipidemia, unspecified; I10 Essential (primary) hypertension; F17.210 Nicotine dependence, cigarettes, uncomplicated; F12.10 Cannabis abuse, uncomplicated; Z88.0 Allergy status to penicillin; Z88.2 Allergy status to sulfonamides; Z88.1 Allergy status to other antibiotic agents; Z91.013 Allergy to seafood; Z59.0 Homelessness; Z91.010 Allergy to peanuts
CPT/HCPCS: 36415; 74176; 80053; 82150; 83690; 83735; 84484; 85025; 93005; 96361; 96365; 96375; 99284; J0696; J2270; J2405; J7030

== ENCOUNTER 2018-06-22 16:37 | Emergency (ER) | payer MEDICAID ==
[~2018-06-22] VITALS: Ht 175.3 cm; Wt 65.8 kg
[2018-06-22 18:08] VITALS: BP 128/80
== END 2018-06-22 18:14 | disposition home or self-care (01) ==
LOC: EDBD 16:37 → EDUNIT# 16:37 → ER 16:39
DX: K46.9 Unspecified abdominal hernia without obstruction or gangrene (principal); J44.9 Chronic obstructive pulmonary disease, unspecified; K21.9 Gastro-esophageal reflux disease without esophagitis; E78.5 Hyperlipidemia, unspecified; I10 Essential (primary) hypertension; F17.210 Nicotine dependence, cigarettes, uncomplicated; F12.10 Cannabis abuse, uncomplicated; Z59.0 Homelessness; Z79.899 Other long term (current) drug therapy; Z88.1 Allergy status to other antibiotic agents; Z88.2 Allergy status to sulfonamides; Z91.010 Allergy to peanuts

== ENCOUNTER 2018-06-24 00:11 | Emergency (ER) | payer MEDICAID ==
[~2018-06-24] VITALS: Ht 177.8 cm; Wt 117.9 kg
[2018-06-24] MEDS ORDERED: NALBUPHINE HCL 10 MG/1ml INJECTION IV ONE (06:45)
[2018-06-24] MEDS ORDERED: ONDANSETRON HCL 4 MG/2 ML VIAL IV ONE (06:45)
[2018-06-24 07:27] LABS: Basophils # (auto) 0.1 uL; Eosinophils # (auto) 0.1 uL; Eosinophils % (auto) 1.2 % (0.0-7.0); Hemoglobin 16.9 g/dL (13.5-17.5); Lymphocytes # (auto) 1.9 uL; Lymphocytes % (auto) 21.2 % (10.0-50.0); Mean Corpuscular Hemoglobin 31.6 pg (28.0-32.0); Mean Corpuscular Hgb Conc. 33.8 g/dL (32.0-36.0); Mean Corpuscular Volume 93.3 fL (80.0-100.0); Monocytes # (auto) 0.8 uL; Monocytes % (auto) 9.2 % (0.0-12.0); Neutrophils % (auto) 67.4 % (37.0-80.0); Nucleated Red Blood Cells % 0.1 %; Platelet Count (auto) 291 10^3/uL (140-450); Red Blood Cells 5.36 10^6/uL (4.5-5.90); Red Cell Distribution Width 13.9 % (11.8-14.3); White Blood Cell 8.9 10^3/uL (4.4-10.8)
[2018-06-24 07:40] LABS: INR 0.99 (0.9-1.15); Partial Thromboplastin Time 25.3 sec (23.78-33.04); Prothrombin Time 10.6 sec (9.27-12.13)
[2018-06-24 07:44] LABS: Alanine Aminotransferase 35 U/L (16-61); Amylase 69 U/L (25-115); Anion Gap 4 (5-15); Aspartate Aminotransferase 27 U/L (15-37); BUN/Creatinine Ratio 22.7; Blood Urea Nitrogen 15 mg/dL (7-18); Calcium 8.7 mg/dL (8.5-10.1); Carbon Dioxide 25 mmol/L (21-32); Chloride 106 mmol/L (98-107); GFR African American 168 mL/min; GFR Non-African American 139 mL/min; Glucose 101 mg/dL (74-106); Lipase 112 U/L (73-393); Potassium 4.2 mmol/L (3.5-5.1); Sodium 135 mmol/L (136-145)
[2018-06-24 07:48] LABS: Alkaline Phosphatase 81 U/L (45-117); Bilirubin, Total 0.5 mg/dL (0.2-1.0); Total Protein 7.1 g/dL (6.4-8.2)
[2018-06-24 09:14] VITALS: BP 128/74
[2018-06-24] MEDS ORDERED: NALBUPHINE HCL 10 MG/1ml INJECTION IM ONE (09:45)
[2018-06-24] MEDS ORDERED: ONDANSETRON HCL 4 MG/2 ML VIAL IM ONE (09:45)
== END 2018-06-24 10:23 | disposition home or self-care (01) ==
LOC: EDUNIT# 00:11 → EDBD 00:11 → ER 00:17
DX: R10.11 Right upper quadrant pain (principal); R11.2 Nausea with vomiting, unspecified; J44.9 Chronic obstructive pulmonary disease, unspecified; K21.9 Gastro-esophageal reflux disease without esophagitis; E78.5 Hyperlipidemia, unspecified; F17.210 Nicotine dependence, cigarettes, uncomplicated; F12.90 Cannabis use, unspecified, uncomplicated; Z88.1 Allergy status to other antibiotic agents; Z88.2 Allergy status to sulfonamides; Z88.0 Allergy status to penicillin; Z91.010 Allergy to peanuts; Z91.013 Allergy to seafood; Z79.82 Long term (current) use of aspirin; Z79.899 Other long term (current) drug therapy; Z86.73 Personal history of transient ischemic attack (TIA), and cerebral infarction without residual deficits
CPT/HCPCS: 36415; 74176; 80053; 82150; 83690; 84484; 85025; 85610; 85730; 96372; 99284; J2300; J2405

== ENCOUNTER 2018-09-22 10:33 | Emergency (ER) | payer MEDICAID ==
[2018-09-22] MEDS ORDERED: traMADol HCL 50 MG TAB PO ONE (11:00)
== END 2018-09-22 12:34 | disposition left against medical advice (07) ==
LOC: ER 10:33 → EDBD 10:33 → ER 12:34
DX: K40.90 Unilateral inguinal hernia, without obstruction or gangrene, not specified as recurrent (principal); J44.9 Chronic obstructive pulmonary disease, unspecified; K21.9 Gastro-esophageal reflux disease without esophagitis; E78.5 Hyperlipidemia, unspecified; I10 Essential (primary) hypertension; F17.210 Nicotine dependence, cigarettes, uncomplicated; Z88.1 Allergy status to other antibiotic agents; Z88.0 Allergy status to penicillin; Z88.2 Allergy status to sulfonamides; Z91.013 Allergy to seafood; Z79.82 Long term (current) use of aspirin; Z79.899 Other long term (current) drug therapy; Z86.73 Personal history of transient ischemic attack (TIA), and cerebral infarction without residual deficits

== ENCOUNTER 2018-09-28 16:00 | Emergency (ER) | payer MEDICAID ==
[~2018-09-28] VITALS: Ht 177.8 cm; Wt 70.3 kg
[2018-09-28 16:40] LABS: Basophils # (auto) 0 uL; Basophils % (auto) 0.4 % (0.0-2.0); Eosinophils # (auto) 0.2 uL; Eosinophils % (auto) 3.1 % (0.0-7.0); Hematocrit 49.7 % (41.0-53.0); Hemoglobin 16.8 g/dL (13.5-17.5); Lymphocytes # (auto) 1.8 uL; Lymphocytes % (auto) 26.4 % (10.0-50.0); Mean Corpuscular Hemoglobin 31.4 pg (28.0-32.0); Mean Corpuscular Hgb Conc. 33.7 g/dL (32.0-36.0); Mean Corpuscular Volume 93.1 fL (80.0-100.0); Monocytes # (auto) 0.7 uL; Neutrophils % (auto) 59.1 % (37.0-80.0); Nucleated Red Blood Cells % 0.2 %; Platelet Count (auto) 267 10^3/uL (140-450); Red Blood Cells 5.34 10^6/uL (4.5-5.90); Red Cell Distribution Width 14.4 % (11.8-14.3); White Blood Cell 6.7 10^3/uL (4.4-10.8)
[2018-09-28 17:01] LABS: Albumin 4.1 g/dL (3.4-5.0); BUN/Creatinine Ratio 36.4; Calcium 8.9 mg/dL (8.5-10.1); Potassium 4.4 mmol/L (3.5-5.1)
[2018-09-28 17:03] LABS: Bilirubin, Total 0.3 mg/dL (0.2-1.0); Total Protein 7.2 g/dL (6.4-8.2)
[2018-09-28 17:30] VITALS: BP 123/78
== END 2018-09-28 18:13 | disposition home or self-care (01) ==
LOC: ER 16:04
DX: K59.00 Constipation, unspecified (principal); J44.9 Chronic obstructive pulmonary disease, unspecified; K21.9 Gastro-esophageal reflux disease without esophagitis; E78.00 Pure hypercholesterolemia, unspecified; I10 Essential (primary) hypertension; F17.210 Nicotine dependence, cigarettes, uncomplicated; F12.10 Cannabis abuse, uncomplicated; Z91.010 Allergy to peanuts; Z91.013 Allergy to seafood; Z88.0 Allergy status to penicillin; Z88.2 Allergy status to sulfonamides; Z88.1 Allergy status to other antibiotic agents; Z79.82 Long term (current) use of aspirin; Z79.899 Other long term (current) drug therapy
CPT/HCPCS: 36415; 74176; 80053; 82150; 83690; 85025

== ENCOUNTER → 2018-11-02 16:44 | Emergency (ER) | payer MEDICAID ==
[~2018-11-02] VITALS: Ht 175.3 cm; Wt 68.0 kg
[2018-11-02 17:40] LABS: Basophils # (auto) 0.1 uL; Basophils % (auto) 1.1 % (0.0-2.0); Eosinophils # (auto) 0.1 uL; Eosinophils % (auto) 1.9 % (0.0-7.0); Hematocrit 48.5 % (41.0-53.0); Hemoglobin 16.1 g/dL (13.5-17.5); Lymphocytes # (auto) 2.4 uL; Lymphocytes % (auto) 32.7 % (10.0-50.0); Mean Corpuscular Hemoglobin 31.2 pg (28.0-32.0); Mean Corpuscular Hgb Conc. 33.3 g/dL (32.0-36.0); Mean Corpuscular Volume 93.7 fL (80.0-100.0); Monocytes # (auto) 0.8 uL; Monocytes % (auto) 10.6 % (0.0-12.0); Neutrophils # (auto) 3.9 uL; Neutrophils % (auto) 53.7 % (37.0-80.0); Platelet Count (auto) 266 10^3/uL (140-450); Red Blood Cells 5.17 10^6/uL (4.5-5.90); White Blood Cell 7.3 10^3/uL (4.4-10.8)
[2018-11-02 17:58] LABS: Calcium 8.9 mg/dL (8.5-10.1); Potassium 4.1 mmol/L (3.5-5.1)
[2018-11-02 18:00] LABS: BUN/Creatinine Ratio 30.5; Bilirubin, Total 0.3 mg/dL (0.2-1.0); Total Protein 6.9 g/dL (6.4-8.2)
[2018-11-02 18:08] VITALS: BP 133/77
[2018-11-02 18:55] LABS: Urine WBC None Seen /hpf (0 - 3)
[2018-11-02 19:09] LABS: Urine Amorphous Crystal FEW /hpf (None Seen); Urine Bacteria NONE SEEN /hpf (None Seen); Urine Blood TRACE /uL (Negative); Urine Specific Gravity 1.015 (1.001-1.035)
== END | disposition home or self-care (01) ==
LOC: EDUNIT# 16:28 → ER 16:44 → EDBD 16:44
DX: K59.00 Constipation, unspecified (principal); F17.210 Nicotine dependence, cigarettes, uncomplicated; F12.90 Cannabis use, unspecified, uncomplicated; Z88.1 Allergy status to other antibiotic agents; Z88.0 Allergy status to penicillin; Z88.2 Allergy status to sulfonamides; Z91.010 Allergy to peanuts; Z91.013 Allergy to seafood; Z79.899 Other long term (current) drug therapy
CPT/HCPCS: 36415; 36600; 74176; 80053; 81001; 82805; 85025; 94761

== ENCOUNTER 2018-11-08 21:15 | Emergency (ER) | payer MEDICAID ==
[~2018-11-08] VITALS: Ht 175.3 cm; Wt 68.0 kg
[2018-11-08 22:12] LABS: Basophils # (auto) 0.1 uL; Eosinophils # (auto) 0.3 uL; Eosinophils % (auto) 3.4 % (0.0-7.0); Hematocrit 48.7 % (41.0-53.0); Hemoglobin 16.3 g/dL (13.5-17.5); Lymphocytes # (auto) 3.1 uL; Lymphocytes % (auto) 40.2 % (10.0-50.0); Mean Corpuscular Hemoglobin 31.2 pg (28.0-32.0); Mean Corpuscular Hgb Conc. 33.5 g/dL (32.0-36.0); Mean Corpuscular Volume 93.2 fL (80.0-100.0); Monocytes # (auto) 0.8 uL; Monocytes % (auto) 10.8 % (0.0-12.0); Neutrophils # (auto) 3.4 uL; Neutrophils % (auto) 44.6 % (37.0-80.0); Nucleated Red Blood Cells % 0.2 %; Platelet Count (auto) 270 10^3/uL (140-450); Red Blood Cells 5.23 10^6/uL (4.5-5.90); Red Cell Distribution Width 13.9 % (11.8-14.3); White Blood Cell 7.6 10^3/uL (4.4-10.8)
[2018-11-08 22:42] LABS: Albumin 3.9 g/dL (3.4-5.0); BUN/Creatinine Ratio 23.3; Calcium 9.2 mg/dL (8.5-10.1)
[2018-11-08 22:45] LABS: Bilirubin, Total 0.4 mg/dL (0.2-1.0); Total Protein 6.8 g/dL (6.4-8.2)
[2018-11-09 02:12] LABS: Urine Bacteria NONE SEEN /hpf (None Seen); Urine Blood TRACE /uL (Negative); Urine Specific Gravity 1.015 (1.001-1.035); Urine WBC <1 /hpf (0 - 3)
[2018-11-09 03:11] VITALS: BP 135/77
[2018-11-09] MEDS ORDERED: DOCUSATE SOD 100 MG CAP PO ONE (05:30)
== END 2018-11-09 05:48 | disposition home or self-care (01) ==
LOC: EDBD 21:15 → ER 21:22
DX: K59.00 Constipation, unspecified (principal); I10 Essential (primary) hypertension; J44.9 Chronic obstructive pulmonary disease, unspecified; E11.9 Type 2 diabetes mellitus without complications; K21.9 Gastro-esophageal reflux disease without esophagitis; E78.00 Pure hypercholesterolemia, unspecified; F17.210 Nicotine dependence, cigarettes, uncomplicated; Z88.1 Allergy status to other antibiotic agents; Z88.0 Allergy status to penicillin; Z88.2 Allergy status to sulfonamides; Z91.013 Allergy to seafood; Z91.010 Allergy to peanuts; Z79.82 Long term (current) use of aspirin; Z79.899 Other long term (current) drug therapy
CPT/HCPCS: 36415; 74176; 80053; 81001; 85025

== ENCOUNTER 2018-11-10 16:11 | Emergency (ER) | payer MEDICAID ==
[~2018-11-10] VITALS: Ht 177.8 cm; Wt 69.9 kg
[2018-11-10 17:13] LABS: Basophils # (auto) 0.1 uL; Eosinophils # (auto) 0.2 uL; Eosinophils % (auto) 2.3 % (0.0-7.0); Hematocrit 50.7 % (41.0-53.0); Hemoglobin 16.7 g/dL (13.5-17.5); Lymphocytes # (auto) 2.6 uL; Lymphocytes % (auto) 27.5 % (10.0-50.0); Mean Corpuscular Hgb Conc. 32.9 g/dL (32.0-36.0); Mean Corpuscular Volume 94.2 fL (80.0-100.0); Monocytes % (auto) 10.1 % (0.0-12.0); Neutrophils # (auto) 5.6 uL; Neutrophils % (auto) 59.1 % (37.0-80.0); Platelet Count (auto) 287 10^3/uL (140-450); Red Blood Cells 5.38 10^6/uL (4.5-5.90); Red Cell Distribution Width 14.2 % (11.8-14.3); White Blood Cell 9.4 10^3/uL (4.4-10.8)
[2018-11-10 17:25] LABS: Albumin 4.1 g/dL (3.4-5.0); Calcium 9.2 mg/dL (8.5-10.1); Potassium 4.6 mmol/L (3.5-5.1)
[2018-11-10 17:28] LABS: BUN/Creatinine Ratio 17.1; Bilirubin, Total 0.4 mg/dL (0.2-1.0); Total Protein 7.2 g/dL (6.4-8.2)
[2018-11-10 19:10] LABS: Urine Bacteria NONE SEEN /hpf (None Seen); Urine Blood TRACE /uL (Negative); Urine Specific Gravity 1.013 (1.001-1.035); Urine Sperm PRESENT /hpf (None Seen); Urine WBC <1 /hpf (0 - 3)
[2018-11-10] MEDS ORDERED: KETOROLAC TROMETH 60MG/2ML VIAL IM ONE (20:30)
[2018-11-10 21:09] VITALS: BP 124/64
== END 2018-11-10 21:14 | disposition home or self-care (01) ==
LOC: EDBD 16:11 → ER 16:15
DX: N13.9 Obstructive and reflux uropathy, unspecified (principal); J44.9 Chronic obstructive pulmonary disease, unspecified; E11.9 Type 2 diabetes mellitus without complications; K21.9 Gastro-esophageal reflux disease without esophagitis; E78.5 Hyperlipidemia, unspecified; I10 Essential (primary) hypertension; F17.210 Nicotine dependence, cigarettes, uncomplicated; F12.10 Cannabis abuse, uncomplicated; Z86.73 Personal history of transient ischemic attack (TIA), and cerebral infarction without residual deficits; Z88.1 Allergy status to other antibiotic agents; Z91.010 Allergy to peanuts; Z88.0 Allergy status to penicillin; Z91.013 Allergy to seafood; Z79.899 Other long term (current) drug therapy
CPT/HCPCS: 36415; 51702; 74176; 80053; 81001; 85025; 96372; 99284; J1885

== ENCOUNTER 2018-11-15 07:49 | Emergency (ER) | payer MEDICAID ==
[~2018-11-15] VITALS: Ht 175.3 cm; Wt 68.0 kg
[2018-11-15 08:30] LABS: Basophils # (auto) 0 uL; Basophils % (auto) 0.5 % (0.0-2.0); Eosinophils # (auto) 0.2 uL; Eosinophils % (auto) 2.7 % (0.0-7.0); Hematocrit 51.7 % (41.0-53.0); Hemoglobin 17.5 g/dL (13.5-17.5); Lymphocytes # (auto) 1.9 uL; Lymphocytes % (auto) 23.1 % (10.0-50.0); Mean Corpuscular Hemoglobin 31.4 pg (28.0-32.0); Mean Corpuscular Hgb Conc. 33.8 g/dL (32.0-36.0); Mean Corpuscular Volume 92.8 fL (80.0-100.0); Monocytes # (auto) 0.7 uL; Monocytes % (auto) 8.7 % (0.0-12.0); Neutrophils # (auto) 5.5 uL; Nucleated Red Blood Cells % 0.2 %; Platelet Count (auto) 281 10^3/uL (140-450); Red Blood Cells 5.57 10^6/uL (4.5-5.90); Red Cell Distribution Width 14.1 % (11.8-14.3); White Blood Cell 8.4 10^3/uL (4.4-10.8)
[2018-11-15 08:32] LABS: Urine Bacteria NONE SEEN /hpf (None Seen); Urine Blood 1+ /uL (Negative); Urine Mucus FEW (None Seen); Urine Specific Gravity 1.016 (1.001-1.035); Urine WBC 3 /hpf (0 - 3)
[2018-11-15] MEDS ORDERED: SODIUM CHLORIDE 0.9% 1,000 ML IV ONE (08:42)
[2018-11-15] MEDS ORDERED: SODIUM CHLORIDE 0.9% 500 ML IVB ONE (08:42)
[2018-11-15] MEDS ORDERED: PROMETHAZINE HCL 25 MG/ML 1ML IV PRN (08:45)
[2018-11-15] MEDS ORDERED: KETOROLAC TROMETH 30 MG/ML 1ML VIAL IV ONE ×2 (08:45→15:15)
[2018-11-15 08:55] LABS: Albumin 4.1 g/dL (3.4-5.0); Anion Gap 4 (5-15); Blood Urea Nitrogen 19 mg/dL (7-18); Calcium 8.6 mg/dL (8.5-10.1); Carbon Dioxide 27 mmol/L (21-32); Chloride 107 mmol/L (98-107); Glucose 100 mg/dL (74-106); Potassium 4.4 mmol/L (3.5-5.1); Sodium 138 mmol/L (136-145)
[2018-11-15 09:01] LABS: Alanine Aminotransferase 42 U/L (16-61); Alkaline Phosphatase 72 U/L (45-117); Aspartate Aminotransferase 25 U/L (15-37); BUN/Creatinine Ratio 27.5; Bilirubin, Total 0.7 mg/dL (0.2-1.0); GFR African American 159 mL/min; GFR Non-African American 131 mL/min; Total Protein 7.3 g/dL (6.4-8.2)
[2018-11-15 09:13] LABS: Magnesium 2.5 mg/dL (1.6-2.6)
[2018-11-15] MEDS ORDERED: cefTRIAXone 1GM/50ML D5W 50 ML IV ONE (12:30)
[2018-11-15 13:11] VITALS: BP 135/78
== END 2018-11-15 16:33 | disposition home or self-care (01) ==
LOC: EDBD 07:49 → ER 07:52
DX: N40.0 Benign prostatic hyperplasia without lower urinary tract symptoms (principal); N39.0 Urinary tract infection, site not specified; F20.9 Schizophrenia, unspecified; F31.9 Bipolar disorder, unspecified; J44.9 Chronic obstructive pulmonary disease, unspecified; E11.9 Type 2 diabetes mellitus without complications; K21.9 Gastro-esophageal reflux disease without esophagitis; E78.5 Hyperlipidemia, unspecified; I10 Essential (primary) hypertension; F17.210 Nicotine dependence, cigarettes, uncomplicated; Z88.1 Allergy status to other antibiotic agents; Z88.2 Allergy status to sulfonamides; Z88.0 Allergy status to penicillin; Z91.018 Allergy to other foods; Z91.013 Allergy to seafood; Z79.82 Long term (current) use of aspirin; Z79.899 Other long term (current) drug therapy; Z86.73 Personal history of transient ischemic attack (TIA), and cerebral infarction without residual deficits
CPT/HCPCS: 36415; 76775; 80053; 81001; 83690; 83735; 84484; 85025; 93005; 96361; 96365; 96375; 96376; 99284; J0696; J1885; J2550; J7030; J7040

== ENCOUNTER 2018-11-22 18:19 | Emergency (ER) | payer MEDICAID ==
[~2018-11-22] VITALS: Ht 175.3 cm; Wt 68.0 kg
[2018-11-22 19:26] LABS: Urine Bacteria FEW /hpf (None Seen); Urine Blood 1+ /uL (Negative); Urine Specific Gravity 1.023 (1.001-1.035); Urine WBC 21 /hpf (0 - 3)
[2018-11-22] MEDS ORDERED: SODIUM CHLORIDE 0.9% 1,000 ML IV ONE (21:15)
[2018-11-22] MEDS ORDERED: MORPHINE SULFATE 4 MG/ML SYR/VIAL IV ONE (21:15)
[2018-11-22] MEDS ORDERED: ONDANSETRON HCL 4 MG/2 ML VIAL IV ONE ×2 (21:15→23:00)
[2018-11-22 21:26] LABS: Albumin 3.9 g/dL (3.4-5.0); Calcium 8.3 mg/dL (8.5-10.1); Potassium 4.3 mmol/L (3.5-5.1)
[2018-11-22 21:31] LABS: BUN/Creatinine Ratio 33.7; Bilirubin, Total 0.4 mg/dL (0.2-1.0); Total Protein 7.3 g/dL (6.4-8.2)
[2018-11-22 21:33] LABS: Basophils # (auto) 0 uL; Basophils % (auto) 0.6 % (0.0-2.0); Eosinophils # (auto) 0.3 uL; Eosinophils % (auto) 4.3 % (0.0-7.0); Hematocrit 49.7 % (41.0-53.0); Hemoglobin 16.8 g/dL (13.5-17.5); Lymphocytes # (auto) 1.6 uL; Lymphocytes % (auto) 21.4 % (10.0-50.0); Mean Corpuscular Hemoglobin 31.4 pg (28.0-32.0); Mean Corpuscular Hgb Conc. 33.9 g/dL (32.0-36.0); Mean Corpuscular Volume 92.8 fL (80.0-100.0); Monocytes # (auto) 0.9 uL; Monocytes % (auto) 12.2 % (0.0-12.0); Neutrophils # (auto) 4.6 uL; Neutrophils % (auto) 61.5 % (37.0-80.0); Nucleated Red Blood Cells % 0.1 %; Platelet Count (auto) 298 10^3/uL (140-450); Red Blood Cells 5.36 10^6/uL (4.5-5.90); Red Cell Distribution Width 14.1 % (11.8-14.3); White Blood Cell 7.5 10^3/uL (4.4-10.8)
[2018-11-22 22:42] LABS: Alcohol, Urine < 3.0 mg/dL (0-5); Amphetamine Screen, Urine NEGATIVE (NEGATIVE); Barbiturate Scree,Urine NEGATIVE (NEGATIVE); Benzodiazephine Screen, Urine NEGATIVE (NEGATIVE); Cannabinoid Screen, Urine NEGATIVE (NEGATIVE); Cocaine Screen, Urine NEGATIVE (NEGATIVE); Opiate Scree,Urine NEGATIVE (NEGATIVE); Phencyclidine Screen, Urine NEGATIVE (NEGATIVE)
[2018-11-22] MEDS ORDERED: MORPHINE SULF INJ 2 MG/ML SYRINGE 1ML IV ONE (23:00)
[2018-11-22 23:53] VITALS: BP 111/68
[2018-11-23] MEDS ORDERED: cefTRIAXone SOD 1,000 MG VL IM ONE
[2018-11-23] MEDS ORDERED: MAGNESIUM CITRATE SOLUTION 300 ML BTL PO ONE
[2018-11-23] MEDS ORDERED: VANCOMYCIN HCL 125MG/5ML ORAL SOL PO ONE (01:00)
== END 2018-11-23 01:27 | disposition home or self-care (01) ==
LOC: EDUNIT# 18:19 → EDBD 18:19 → ER 18:23
DX: N39.0 Urinary tract infection, site not specified (principal); K59.00 Constipation, unspecified; J44.9 Chronic obstructive pulmonary disease, unspecified; E11.9 Type 2 diabetes mellitus without complications; K21.9 Gastro-esophageal reflux disease without esophagitis; E78.5 Hyperlipidemia, unspecified; I10 Essential (primary) hypertension; F17.210 Nicotine dependence, cigarettes, uncomplicated; Z88.2 Allergy status to sulfonamides; Z88.0 Allergy status to penicillin; Z88.1 Allergy status to other antibiotic agents; Z91.010 Allergy to peanuts; Z91.013 Allergy to seafood; Z79.82 Long term (current) use of aspirin; Z79.899 Other long term (current) drug therapy; Z86.73 Personal history of transient ischemic attack (TIA), and cerebral infarction without residual deficits
CPT/HCPCS: 36415; 74176; 80053; 80307; 81001; 85025; 93005; 96374; 96375; 96376; 99284; J2270; J2405; J7030

== ENCOUNTER 2018-11-26 13:41 | Emergency (ER) | payer MEDICAID ==
[~2018-11-26] VITALS: Ht 172.7 cm; Wt 68.0 kg
[2018-11-26 14:59] LABS: Basophils # (auto) 0 uL; Basophils % (auto) 0.6 % (0.0-2.0); Eosinophils # (auto) 0.2 uL; Eosinophils % (auto) 2.2 % (0.0-7.0); Hematocrit 47.7 % (41.0-53.0); Hemoglobin 16.1 g/dL (13.5-17.5); Lymphocytes # (auto) 1.8 uL; Lymphocytes % (auto) 22.8 % (10.0-50.0); Mean Corpuscular Hemoglobin 31.3 pg (28.0-32.0); Mean Corpuscular Hgb Conc. 33.8 g/dL (32.0-36.0); Mean Corpuscular Volume 92.6 fL (80.0-100.0); Monocytes # (auto) 0.7 uL; Monocytes % (auto) 8.5 % (0.0-12.0); Neutrophils # (auto) 5.2 uL; Neutrophils % (auto) 65.9 % (37.0-80.0); Platelet Count (auto) 314 10^3/uL (140-450); Red Blood Cells 5.15 10^6/uL (4.5-5.90); Red Cell Distribution Width 13.8 % (11.8-14.3); White Blood Cell 7.9 10^3/uL (4.4-10.8)
[2018-11-26 15:18] LABS: Alanine Aminotransferase 44 U/L (16-61); Albumin 3.9 g/dL (3.4-5.0); Anion Gap 11 (5-15); Aspartate Aminotransferase 37 U/L (15-37); BUN/Creatinine Ratio 26.5; Blood Urea Nitrogen 22 mg/dL (7-18); Calcium 8.9 mg/dL (8.5-10.1); Carbon Dioxide 25 mmol/L (21-32); Chloride 106 mmol/L (98-107); GFR African American 128 mL/min; GFR Non-African American 106 mL/min; Glucose 89 mg/dL (74-106); Potassium 4.3 mmol/L (3.5-5.1); Sodium 142 mmol/L (136-145)
[2018-11-26 15:20] LABS: Alkaline Phosphatase 79 U/L (45-117); Bilirubin, Total 0.6 mg/dL (0.2-1.0); Total Protein 7.3 g/dL (6.4-8.2)
[2018-11-26 16:30] VITALS: BP 144/75
== END 2018-11-26 17:46 | disposition home or self-care (01) ==
LOC: ER 13:41 → EDBD 13:41 → ER 17:46
DX: M54.9 Dorsalgia, unspecified (principal); M79.18 Myalgia, other site; R33.9 Retention of urine, unspecified; J44.9 Chronic obstructive pulmonary disease, unspecified; E11.9 Type 2 diabetes mellitus without complications; K21.9 Gastro-esophageal reflux disease without esophagitis; E78.5 Hyperlipidemia, unspecified; I10 Essential (primary) hypertension; F17.210 Nicotine dependence, cigarettes, uncomplicated; Z87.440 Personal history of urinary (tract) infections; Z86.73 Personal history of transient ischemic attack (TIA), and cerebral infarction without residual deficits
CPT/HCPCS: 36415; 51702; 80053; 81002; 85025; 93005

== ENCOUNTER 2018-12-01 16:28 | Emergency (ER) | payer MEDICAID ==
[~2018-12-01] VITALS: Ht 175.3 cm; Wt 81.6 kg
[2018-12-01 19:04] LABS: Urine Bacteria NONE SEEN /hpf (None Seen); Urine Blood 2+ /uL (Negative); Urine Mucus FEW (None Seen); Urine Specific Gravity 1.027 (1.001-1.035); Urine WBC 11 /hpf (0 - 3)
[2018-12-01] MEDS ORDERED: PHENAZOPYRIDINE HCL 100 MG TAB PO ONE (19:45)
[2018-12-01] MEDS ORDERED: ONDANSETRON HCL 4 MG/2 ML VIAL IV ONE ×2 (20:15→22:15)
[2018-12-01] MEDS ORDERED: HYDROmorphone HCL 2 MG/ML VL IV ONE (20:15)
[2018-12-01] MEDS ORDERED: HYDROcodone-ACET 7.5/325MG TAB PO ONE (20:15)
[2018-12-01 21:09] LABS: Basophils # (auto) 0 uL; Basophils % (auto) 0.5 % (0.0-2.0); Eosinophils # (auto) 0.3 uL; Eosinophils % (auto) 3.8 % (0.0-7.0); Hematocrit 46.8 % (41.0-53.0); Hemoglobin 15.8 g/dL (13.5-17.5); Lymphocytes # (auto) 1.7 uL; Lymphocytes % (auto) 21.4 % (10.0-50.0); Mean Corpuscular Hgb Conc. 33.7 g/dL (32.0-36.0); Mean Corpuscular Volume 92.1 fL (80.0-100.0); Monocytes # (auto) 0.8 uL; Monocytes % (auto) 9.9 % (0.0-12.0); Neutrophils # (auto) 5.3 uL; Neutrophils % (auto) 64.4 % (37.0-80.0); Nucleated Red Blood Cells % 0.1 %; Platelet Count (auto) 334 10^3/uL (140-450); Red Blood Cells 5.08 10^6/uL (4.5-5.90); Red Cell Distribution Width 13.9 % (11.8-14.3); White Blood Cell 8.2 10^3/uL (4.4-10.8)
[2018-12-01 21:23] LABS: Albumin 3.9 g/dL (3.4-5.0); BUN/Creatinine Ratio 27.8; Calcium 8.8 mg/dL (8.5-10.1); Potassium 4.1 mmol/L (3.5-5.1)
[2018-12-01 21:26] LABS: Bilirubin, Total 0.5 mg/dL (0.2-1.0); Total Protein 7.2 g/dL (6.4-8.2)
[2018-12-01] MEDS ORDERED: LEVOFLOXACIN 250 MG TAB PO ONE (21:45)
[2018-12-01] MEDS ORDERED: ONDANSETRON HCL 4 MG/2 ML VIAL ONE (21:59)
[2018-12-01 22:07] VITALS: BP 130/74
[2018-12-01 22:08] LABS: INR 0.92 (0.9-1.15); Partial Thromboplastin Time 25.2 sec (23.64-32.05)
== END 2018-12-01 22:17 | disposition home or self-care (01) ==
LOC: EDBD 16:28 → ER 16:32
DX: N39.0 Urinary tract infection, site not specified (principal); J44.9 Chronic obstructive pulmonary disease, unspecified; K21.9 Gastro-esophageal reflux disease without esophagitis; E78.5 Hyperlipidemia, unspecified; E11.9 Type 2 diabetes mellitus without complications; I10 Essential (primary) hypertension; F17.210 Nicotine dependence, cigarettes, uncomplicated; Z88.1 Allergy status to other antibiotic agents; Z88.2 Allergy status to sulfonamides; Z88.0 Allergy status to penicillin; Z91.010 Allergy to peanuts; Z91.013 Allergy to seafood; Z79.82 Long term (current) use of aspirin; Z79.899 Other long term (current) drug therapy; Z87.442 Personal history of urinary calculi; Z86.73 Personal history of transient ischemic attack (TIA), and cerebral infarction without residual deficits
CPT/HCPCS: 36415; 76705; 80053; 81001; 82150; 83690; 85025; 85610; 85730; 94761; 96374; 96375; 96376; 99284; J1170; J2405

== ENCOUNTER 2018-12-03 21:22 | Emergency (ER) | payer MEDICAID ==
[~2018-12-03] VITALS: Ht 175.3 cm; Wt 68.0 kg
[2018-12-03 23:47] LABS: Basophils # (auto) 0 uL; Basophils % (auto) 0.4 % (0.0-2.0); Eosinophils # (auto) 0.3 uL; Eosinophils % (auto) 2.9 % (0.0-7.0); Hematocrit 45.8 % (41.0-53.0); Hemoglobin 15.2 g/dL (13.5-17.5); Lymphocytes # (auto) 2.2 uL; Mean Corpuscular Hemoglobin 30.9 pg (28.0-32.0); Mean Corpuscular Hgb Conc. 33.1 g/dL (32.0-36.0); Mean Corpuscular Volume 93.3 fL (80.0-100.0); Monocytes # (auto) 0.7 uL; Monocytes % (auto) 8.3 % (0.0-12.0); Neutrophils # (auto) 5.5 uL; Neutrophils % (auto) 63.4 % (37.0-80.0); Nucleated Red Blood Cells % 0.1 %; Platelet Count (auto) 296 10^3/uL (140-450); Red Blood Cells 4.91 10^6/uL (4.5-5.90); Red Cell Distribution Width 13.5 % (11.8-14.3); White Blood Cell 8.7 10^3/uL (4.4-10.8)
[2018-12-04 00:08] LABS: Albumin 3.6 g/dL (3.4-5.0); BUN/Creatinine Ratio 30.1; Calcium 8.5 mg/dL (8.5-10.1); Potassium 4.2 mmol/L (3.5-5.1)
[2018-12-04 00:10] LABS: Bilirubin, Total 0.3 mg/dL (0.2-1.0); Total Protein 6.7 g/dL (6.4-8.2)
[2018-12-04 04:06] LABS: Urine Bacteria FEW /hpf (None Seen); Urine Blood 1+ /uL (Negative); Urine Specific Gravity 1.025 (1.001-1.035); Urine WBC 5 /hpf (0 - 3)
[2018-12-04 07:30] VITALS: BP 119/68
[2018-12-04] MEDS ORDERED: KETOROLAC TROMETH 30 MG/ML 1ML VIAL IV ONE (08:15)
== END 2018-12-04 09:15 | disposition home or self-care (01) ==
LOC: EDBD 21:22 → ER 21:26
DX: N39.0 Urinary tract infection, site not specified (principal); J44.9 Chronic obstructive pulmonary disease, unspecified; E11.9 Type 2 diabetes mellitus without complications; K21.9 Gastro-esophageal reflux disease without esophagitis; E78.5 Hyperlipidemia, unspecified; I10 Essential (primary) hypertension; N20.0 Calculus of kidney; F17.210 Nicotine dependence, cigarettes, uncomplicated; Z88.1 Allergy status to other antibiotic agents; Z88.2 Allergy status to sulfonamides; Z91.010 Allergy to peanuts; Z91.013 Allergy to seafood; Z88.0 Allergy status to penicillin; Z79.899 Other long term (current) drug therapy; Z86.73 Personal history of transient ischemic attack (TIA), and cerebral infarction without residual deficits
CPT/HCPCS: 36415; 80053; 81001; 85025; 96374; 99283; J1885

== ENCOUNTER 2018-12-05 18:05 | Emergency (ER) | payer MEDICAID ==
[~2018-12-05] VITALS: Ht 172.7 cm; Wt 70.3 kg
[2018-12-06] MEDS ORDERED: HYDROcodone-ACET 10/325MG TAB PO ONE (05:15)
[2018-12-06 06:10] VITALS: BP 135/75
== END 2018-12-06 06:10 | disposition home or self-care (01) ==
LOC: EDBD 18:05 → EDSEX 18:05 → ER 18:09
DX: N40.1 Benign prostatic hyperplasia with lower urinary tract symptoms (principal); R33.8 Other retention of urine; F17.210 Nicotine dependence, cigarettes, uncomplicated; J44.9 Chronic obstructive pulmonary disease, unspecified; I10 Essential (primary) hypertension; E11.9 Type 2 diabetes mellitus without complications; K21.9 Gastro-esophageal reflux disease without esophagitis; Z88.1 Allergy status to other antibiotic agents; Z88.2 Allergy status to sulfonamides; Z91.013 Allergy to seafood; Z88.0 Allergy status to penicillin; Z91.010 Allergy to peanuts; Z46.6 Encounter for fitting and adjustment of urinary device
CPT/HCPCS: 51702

== ENCOUNTER 2018-12-09 22:36 | Emergency (ER) | payer MEDICAID ==
[~2018-12-09] VITALS: Ht 175.3 cm; Wt 68.0 kg
[2018-12-10 01:16] LABS: Acetaminophen < 2.0 ug/mL (10-30); Salicylate < 1.7 mg/dL (2.8-20.0)
[2018-12-10 03:02] LABS: Alcohol, Urine < 3.0 mg/dL (0-5); Amphetamine Screen, Urine NEGATIVE (NEGATIVE); Barbiturate Scree,Urine NEGATIVE (NEGATIVE); Benzodiazephine Screen, Urine NEGATIVE (NEGATIVE); Cannabinoid Screen, Urine NEGATIVE (NEGATIVE); Cocaine Screen, Urine NEGATIVE (NEGATIVE); Phencyclidine Screen, Urine NEGATIVE (NEGATIVE)
[2018-12-10 03:05] LABS: Opiate Scree,Urine NEGATIVE (NEGATIVE)
[2018-12-10] MEDS: buPROPion HCL 100 MG TAB PO SCH (11:37)
[2018-12-10] MEDS: LISINOPRIL 20 MG TAB PO SCH (11:37)
[2018-12-10] MEDS: ASPirin 81 mg TAB PO SCH (11:37)
[2018-12-10] MEDS: SERTRALINE HCL 50 MG TAB PO SCH (11:38)
[2018-12-10] MEDS ORDERED: GABAPENTIN 300 MG CAP PO SCH (14:00)
[2018-12-10] MEDS ORDERED: QUEtiapine FUMARATE 100 MG TAB PO SCH (22:00)
[2018-12-10] MEDS ORDERED: ATORVASTATIN 20 MG TAB PO SCH (22:00)
[2018-12-11] MEDS: LISINOPRIL 20 MG TAB PO SCH (10:39)
[2018-12-11] MEDS: ASPirin 81 mg TAB PO SCH (10:39)
[2018-12-11] MEDS: buPROPion HCL 100 MG TAB PO SCH (10:39)
[2018-12-11] MEDS: SERTRALINE HCL 50 MG TAB PO SCH (10:40)
[2018-12-11] MEDS: GABAPENTIN 300 MG CAP PO SCH (14:50)
[2018-12-12] MEDS: ATORVASTATIN 20 MG TAB PO SCH (00:17)
[2018-12-12] MEDS: GABAPENTIN 300 MG CAP PO SCH ×3 (00:17→15:15)
[2018-12-12] MEDS: QUEtiapine FUMARATE 100 MG TAB PO SCH (00:17)
[2018-12-12] MEDS ORDERED: QUEtiapine FUMARATE 100 MG TAB ONE ×2 (02:33→02:34)
[2018-12-12] MEDS ORDERED: PROPOFOL 0 ML IV ONE (03:07)
[2018-12-12] MEDS: buPROPion HCL 100 MG TAB PO SCH (12:20)
[2018-12-12] MEDS: LISINOPRIL 20 MG TAB PO SCH (12:20)
[2018-12-12] MEDS: ASPirin 81 mg TAB PO SCH (12:20)
[2018-12-12] MEDS: SERTRALINE HCL 50 MG TAB PO SCH (12:20)
[2018-12-13] MEDS: QUEtiapine FUMARATE 100 MG TAB PO SCH ×2 (08:03→22:35)
[2018-12-13] MEDS: GABAPENTIN 300 MG CAP PO SCH ×4 (08:04→22:35)
[2018-12-13] MEDS ORDERED: ACETAMINOPHEN 500 MG TAB PO ONE (08:15)
[2018-12-13] MEDS: ATORVASTATIN 20 MG TAB PO SCH ×2 (09:13→22:35)
[2018-12-13] MEDS ORDERED: LISINOPRIL 10 MG TAB ONE (11:08)
[2018-12-13] MEDS ORDERED: ASPirin-EC 81 mg tab PO ONE (11:08)
[2018-12-13] MEDS ORDERED: SERTRALINE HCL 50 MG TAB ONE (11:08)
[2018-12-13] MEDS ORDERED: buPROPion HCL 100 MG TAB ONE (11:09)
[2018-12-13] MEDS ORDERED: VALPROIC ACID 250 MG CAP PO ONE (11:09)
[2018-12-13] MEDS: buPROPion HCL 100 MG TAB PO SCH (11:16)
[2018-12-13] MEDS: ASPirin 81 mg TAB PO SCH (11:16)
[2018-12-13] MEDS: SERTRALINE HCL 50 MG TAB PO SCH (11:16)
[2018-12-13] MEDS: LISINOPRIL 20 MG TAB PO SCH (11:18)
[2018-12-13] MEDS ORDERED: GABAPENTIN 300 MG CAP ONE ×2 (18:05→21:45)
[2018-12-13] MEDS ORDERED: ATORVASTATIN 20 MG TAB ONE (21:46)
[2018-12-13] MEDS ORDERED: QUEtiapine FUMARATE 100 MG TAB ONE ×2 (21:46→21:47)
[2018-12-14] MEDS ORDERED: GABAPENTIN 300 MG CAP ONE ×3 (07:49→21:36)
[2018-12-14] MEDS: GABAPENTIN 300 MG CAP PO SCH ×3 (07:51→21:54)
[2018-12-14] MEDS: LISINOPRIL 20 MG TAB PO SCH (10:00)
[2018-12-14] MEDS ORDERED: ASPirin 81 mg TAB ONE (10:07)
[2018-12-14] MEDS ORDERED: buPROPion HCL 75 MG TAB ONE (10:07)
[2018-12-14] MEDS ORDERED: SERTRALINE HCL 50 MG TAB ONE (10:08)
[2018-12-14] MEDS: ASPirin 81 mg TAB PO SCH (10:14)
[2018-12-14] MEDS: SERTRALINE HCL 50 MG TAB PO SCH (10:14)
[2018-12-14] MEDS: buPROPion HCL 100 MG TAB PO SCH (10:14)
[2018-12-14] MEDS ORDERED: ATORVASTATIN 20 MG TAB ONE (21:36)
[2018-12-14] MEDS ORDERED: QUEtiapine FUMARATE 100 MG TAB ONE (21:36)
[2018-12-14] MEDS: ATORVASTATIN 20 MG TAB PO SCH (21:54)
[2018-12-14] MEDS: QUEtiapine FUMARATE 100 MG TAB PO SCH (21:55)
[2018-12-15] MEDS ORDERED: GABAPENTIN 400 MG CAP ONE (07:16)
[2018-12-15] MEDS ORDERED: GABAPENTIN 100 MG CAP ONE (07:16)
[2018-12-15] MEDS: GABAPENTIN 300 MG CAP PO SCH ×2 (07:20→14:17)
[2018-12-15 09:45] LABS: Basophils # (auto) 0 uL; Basophils % (auto) 0.4 % (0.0-2.0); Eosinophils # (auto) 0.3 uL; Eosinophils % (auto) 3.4 % (0.0-7.0); Hematocrit 48.8 % (41.0-53.0); Hemoglobin 16.2 g/dL (13.5-17.5); Lymphocytes # (auto) 2.1 uL; Lymphocytes % (auto) 28.4 % (10.0-50.0); Mean Corpuscular Hemoglobin 31.2 pg (28.0-32.0); Mean Corpuscular Hgb Conc. 33.2 g/dL (32.0-36.0); Mean Corpuscular Volume 93.8 fL (80.0-100.0); Monocytes # (auto) 0.5 uL; Monocytes % (auto) 6.6 % (0.0-12.0); Neutrophils # (auto) 4.6 uL; Neutrophils % (auto) 61.2 % (37.0-80.0); Platelet Count (auto) 245 10^3/uL (140-450); Red Cell Distribution Width 13.6 % (11.8-14.3); White Blood Cell 7.5 10^3/uL (4.4-10.8)
[2018-12-15] MEDS: LISINOPRIL 20 MG TAB PO SCH (10:00)
[2018-12-15 10:01] LABS: Albumin 3.7 g/dL (3.4-5.0); BUN/Creatinine Ratio 20.4; Calcium 8.6 mg/dL (8.5-10.1)
[2018-12-15 10:04] LABS: Bilirubin, Total 0.6 mg/dL (0.2-1.0); Total Protein 6.9 g/dL (6.4-8.2)
[2018-12-15] MEDS: SERTRALINE HCL 50 MG TAB PO SCH (10:24)
[2018-12-15] MEDS: buPROPion HCL 100 MG TAB PO SCH (10:24)
[2018-12-15] MEDS: ASPirin 81 mg TAB PO SCH (10:24)
[2018-12-15 11:28] LABS: Urine Bacteria NONE SEEN /hpf (None Seen); Urine Blood Negative /uL (Negative); Urine Specific Gravity 1.012 (1.001-1.035); Urine WBC 2 /hpf (0 - 3)
[2018-12-15] MEDS ORDERED: CIPROFLOXACIN HCL 500 MG TAB PO ONE (15:15)
[2018-12-15 19:44] VITALS: BP 106/78
== END 2018-12-15 19:45 | disposition short-term general hospital (02) ==
LOC: ER 22:41
DX: R45.851 Suicidal ideations (principal); N39.0 Urinary tract infection, site not specified; F31.9 Bipolar disorder, unspecified; J44.9 Chronic obstructive pulmonary disease, unspecified; E11.9 Type 2 diabetes mellitus without complications; K21.9 Gastro-esophageal reflux disease without esophagitis; F20.9 Schizophrenia, unspecified; F41.9 Anxiety disorder, unspecified; F17.210 Nicotine dependence, cigarettes, uncomplicated; Z86.73 Personal history of transient ischemic attack (TIA), and cerebral infarction without residual deficits; Z87.442 Personal history of urinary calculi
CPT/HCPCS: 36415; 80053; 80307; 80320; 80329; 81001; 85025

== ENCOUNTER 2018-12-21 16:33 | Emergency (ER) | payer MEDICAID ==
[~2018-12-21] VITALS: Ht 175.3 cm; Wt 68.0 kg
[2018-12-21 18:07] LABS: Basophils # (auto) 0.1 uL; Basophils % (auto) 1.2 % (0.0-2.0); Eosinophils # (auto) 0.4 uL; Eosinophils % (auto) 5.4 % (0.0-7.0); Hematocrit 44.5 % (41.0-53.0); Hemoglobin 14.8 g/dL (13.5-17.5); Lymphocytes # (auto) 2.5 uL; Lymphocytes % (auto) 33.5 % (10.0-50.0); Mean Corpuscular Hemoglobin 31.1 pg (28.0-32.0); Mean Corpuscular Hgb Conc. 33.3 g/dL (32.0-36.0); Mean Corpuscular Volume 93.3 fL (80.0-100.0); Monocytes # (auto) 0.7 uL; Monocytes % (auto) 9.5 % (0.0-12.0); Neutrophils # (auto) 3.8 uL; Neutrophils % (auto) 50.4 % (37.0-80.0); Nucleated Red Blood Cells % 0.1 %; Platelet Count (auto) 232 10^3/uL (140-450); Red Blood Cells 4.76 10^6/uL (4.5-5.90); White Blood Cell 7.6 10^3/uL (4.4-10.8)
[2018-12-21 18:21] LABS: Albumin 3.9 g/dL (3.4-5.0); BUN/Creatinine Ratio 20.7; Calcium 8.6 mg/dL (8.5-10.1); Potassium 4.2 mmol/L (3.5-5.1)
[2018-12-21 18:38] LABS: Bilirubin, Total 0.5 mg/dL (0.2-1.0); Total Protein 6.8 g/dL (6.4-8.2)
[2018-12-21 20:10] LABS: Urine WBC None Seen /hpf (0 - 3)
[2018-12-21 20:24] LABS: Urine Bacteria NONE SEEN /hpf (None Seen); Urine Blood Negative /uL (Negative); Urine Specific Gravity 1.016 (1.001-1.035)
[2018-12-21 21:49] VITALS: BP 116/64
== END 2018-12-21 21:51 | disposition home or self-care (01) ==
LOC: EDBD 16:33 → ER 16:35
DX: M54.5 Low back pain (principal); R30.0 Dysuria; R35.0 Frequency of micturition; R39.15 Urgency of urination; R31.9 Hematuria, unspecified; J44.9 Chronic obstructive pulmonary disease, unspecified; E11.9 Type 2 diabetes mellitus without complications; K21.9 Gastro-esophageal reflux disease without esophagitis; E78.00 Pure hypercholesterolemia, unspecified; I10 Essential (primary) hypertension; F17.210 Nicotine dependence, cigarettes, uncomplicated; Z86.73 Personal history of transient ischemic attack (TIA), and cerebral infarction without residual deficits; Z88.2 Allergy status to sulfonamides; Z88.1 Allergy status to other antibiotic agents; Z91.013 Allergy to seafood; Z91.010 Allergy to peanuts; Z88.0 Allergy status to penicillin; Z79.82 Long term (current) use of aspirin; Z79.899 Other long term (current) drug therapy
CPT/HCPCS: 36415; 74176; 80053; 81001; 83690; 85025

== ENCOUNTER 2018-12-29 23:22 | Emergency (ER) | payer MEDICAID ==
[~2018-12-29] VITALS: Ht 175.3 cm; Wt 68.0 kg
[2018-12-30 01:41] LABS: Urine Bacteria NONE SEEN /hpf (None Seen); Urine Blood 2+ /uL (Negative); Urine Specific Gravity 1.022 (1.001-1.035); Urine WBC 19 /hpf (0 - 3)
[2018-12-30 04:12] VITALS: BP 115/69
== END 2018-12-30 05:05 | disposition home or self-care (01) ==
LOC: EDBD 23:22 → ER 23:29
DX: N39.0 Urinary tract infection, site not specified (principal); J44.9 Chronic obstructive pulmonary disease, unspecified; E11.9 Type 2 diabetes mellitus without complications; K21.9 Gastro-esophageal reflux disease without esophagitis; E78.5 Hyperlipidemia, unspecified; I10 Essential (primary) hypertension; Z86.73 Personal history of transient ischemic attack (TIA), and cerebral infarction without residual deficits; Z87.442 Personal history of urinary calculi; Z88.0 Allergy status to penicillin; Z88.2 Allergy status to sulfonamides; Z88.6 Allergy status to analgesic agent; Z79.899 Other long term (current) drug therapy; Z91.013 Allergy to seafood
CPT/HCPCS: 81001

== ENCOUNTER 2019-01-02 12:33 | Emergency (ER) | payer MEDICAID ==
[~2019-01-02] VITALS: Ht 175.3 cm; Wt 68.0 kg
[2019-01-02 14:00] LABS: Urine Bacteria FEW /hpf (None Seen); Urine Blood 2+ /uL (Negative); Urine Mucus FEW (None Seen); Urine Specific Gravity 1.023 (1.001-1.035); Urine WBC 61 /hpf (0 - 3)
[2019-01-02] MEDS ORDERED: cefTRIAXone SOD 1,000 MG VL IM ONE (15:30)
[2019-01-02 15:32] VITALS: BP 132/86
== END 2019-01-02 16:15 | disposition home or self-care (01) ==
LOC: ER 12:37
DX: N39.0 Urinary tract infection, site not specified (principal); F17.210 Nicotine dependence, cigarettes, uncomplicated; Z88.2 Allergy status to sulfonamides; Z88.0 Allergy status to penicillin; Z88.1 Allergy status to other antibiotic agents; Z91.010 Allergy to peanuts; Z91.013 Allergy to seafood; Z79.899 Other long term (current) drug therapy; Z79.82 Long term (current) use of aspirin
CPT/HCPCS: 81001; 96372; 99283; J0696

== ENCOUNTER 2019-01-13 13:37 | Emergency (ER) | payer MEDICAID ==
[~2019-01-13] VITALS: Ht 175.3 cm; Wt 77.1 kg
[2019-01-13] MEDS ORDERED: HYDROcodone-ACET 10/325MG TAB PO ONE (13:45)
[2019-01-13 14:31] LABS: Basophils # (auto) 0.1 uL; Basophils % (auto) 0.8 % (0.0-2.0); Eosinophils # (auto) 0.4 uL; Eosinophils % (auto) 4.3 % (0.0-7.0); Hematocrit 46.4 % (41.0-53.0); Hemoglobin 15.6 g/dL (13.5-17.5); Lymphocytes # (auto) 2.4 uL; Lymphocytes % (auto) 28.4 % (10.0-50.0); Mean Corpuscular Hemoglobin 31.4 pg (28.0-32.0); Mean Corpuscular Hgb Conc. 33.6 g/dL (32.0-36.0); Mean Corpuscular Volume 93.4 fL (80.0-100.0); Monocytes # (auto) 0.8 uL; Monocytes % (auto) 9.7 % (0.0-12.0); Neutrophils # (auto) 4.7 uL; Neutrophils % (auto) 56.8 % (37.0-80.0); Nucleated Red Blood Cells % 0.1 %; Platelet Count (auto) 263 10^3/uL (140-450); Red Blood Cells 4.97 10^6/uL (4.5-5.90); Red Cell Distribution Width 14.3 % (11.8-14.3); White Blood Cell 8.3 10^3/uL (4.4-10.8)
[2019-01-13 14:47] LABS: Albumin 4.1 g/dL (3.4-5.0); BUN/Creatinine Ratio 46.3; Calcium 8.5 mg/dL (8.5-10.1); Potassium 4.6 mmol/L (3.5-5.1)
[2019-01-13 14:50] LABS: Bilirubin, Total 0.2 mg/dL (0.2-1.0); Total Protein 6.9 g/dL (6.4-8.2)
[2019-01-13 16:13] LABS: Urine WBC None Seen /hpf (0 - 3)
[2019-01-13 16:25] LABS: Urine Bacteria NONE SEEN /hpf (None Seen); Urine Blood 2+ /uL (Negative); Urine Specific Gravity 1.029 (1.001-1.035)
[2019-01-13 16:49] VITALS: BP 103/54
[2019-01-13] MEDS ORDERED: NITROFURANTOIN (MONO) 100 mg CAP PO ONE (17:15)
== END 2019-01-13 17:21 | disposition home or self-care (01) ==
LOC: EDBD 13:37 → ER 13:37
DX: N39.0 Urinary tract infection, site not specified (principal); J44.9 Chronic obstructive pulmonary disease, unspecified; E11.9 Type 2 diabetes mellitus without complications; K21.9 Gastro-esophageal reflux disease without esophagitis; E78.5 Hyperlipidemia, unspecified; I10 Essential (primary) hypertension; F17.210 Nicotine dependence, cigarettes, uncomplicated; Z87.442 Personal history of urinary calculi; Z86.73 Personal history of transient ischemic attack (TIA), and cerebral infarction without residual deficits; Z88.0 Allergy status to penicillin; Z88.2 Allergy status to sulfonamides; Z88.8 Allergy status to other drugs, medicaments and biological substances; Z88.1 Allergy status to other antibiotic agents; Z91.010 Allergy to peanuts; Z91.013 Allergy to seafood; Z79.899 Other long term (current) drug therapy
CPT/HCPCS: 36415; 80053; 81001; 85025

== ENCOUNTER 2019-01-23 18:03 | Emergency (ER) | payer MEDICAID ==
[~2019-01-23] VITALS: Ht 154.9 cm; Wt 74.8 kg
[2019-01-23 20:25] LABS: Basophils # (auto) 0.1 uL; Basophils % (auto) 0.9 % (0.0-2.0); Eosinophils # (auto) 0.3 uL; Eosinophils % (auto) 4.5 % (0.0-7.0); Hematocrit 45.5 % (41.0-53.0); Hemoglobin 15.3 g/dL (13.5-17.5); Lymphocytes # (auto) 2.1 uL; Lymphocytes % (auto) 26.9 % (10.0-50.0); Mean Corpuscular Hemoglobin 31.5 pg (28.0-32.0); Mean Corpuscular Hgb Conc. 33.7 g/dL (32.0-36.0); Mean Corpuscular Volume 93.3 fL (80.0-100.0); Monocytes # (auto) 0.8 uL; Monocytes % (auto) 10.7 % (0.0-12.0); Neutrophils # (auto) 4.3 uL; Nucleated Red Blood Cells % 0.1 %; Platelet Count (auto) 249 10^3/uL (140-450); Red Blood Cells 4.87 10^6/uL (4.5-5.90); Red Cell Distribution Width 13.7 % (11.8-14.3); White Blood Cell 7.6 10^3/uL (4.4-10.8)
[2019-01-23 20:45] LABS: Albumin 3.9 g/dL (3.4-5.0); Calcium 8.8 mg/dL (8.5-10.1); Magnesium 2.1 mg/dL (1.6-2.6); Potassium 4.2 mmol/L (3.5-5.1)
[2019-01-23 20:47] LABS: INR 1.01 (0.9-1.15); Partial Thromboplastin Time 26.7 sec (23.64-32.05)
[2019-01-23 20:51] LABS: Bilirubin, Total 0.5 mg/dL (0.2-1.0); Total Protein 7.1 g/dL (6.4-8.2)
[2019-01-23 22:54] LABS: Urine Bacteria NONE SEEN /hpf (None Seen); Urine Blood TRACE /uL (Negative); Urine Hyaline Cast FEW /lpf (0 - 2); Urine Specific Gravity 1.019 (1.001-1.035); Urine WBC 2 /hpf (0 - 3)
[2019-01-23 23:10] LABS: Alcohol, Urine < 3.0 mg/dL (0-5); Amphetamine Screen, Urine NEGATIVE (NEGATIVE); Barbiturate Scree,Urine NEGATIVE (NEGATIVE); Benzodiazephine Screen, Urine NEGATIVE (NEGATIVE); Cannabinoid Screen, Urine NEGATIVE (NEGATIVE); Cocaine Screen, Urine NEGATIVE (NEGATIVE); Opiate Scree,Urine NEGATIVE (NEGATIVE); Phencyclidine Screen, Urine NEGATIVE (NEGATIVE)
[2019-01-23] MEDS ORDERED: PHENAZOPYRIDINE HCL 100 MG TAB PO ONE (23:15)
[2019-01-23 23:41] VITALS: BP 116/66
== END 2019-01-23 23:38 | disposition home or self-care (01) ==
LOC: EDBD 18:03 → EDUNIT# 18:03 → ER 18:07
DX: K59.00 Constipation, unspecified (principal); N40.0 Benign prostatic hyperplasia without lower urinary tract symptoms; F17.210 Nicotine dependence, cigarettes, uncomplicated; J44.9 Chronic obstructive pulmonary disease, unspecified; E11.9 Type 2 diabetes mellitus without complications; K21.9 Gastro-esophageal reflux disease without esophagitis; E78.5 Hyperlipidemia, unspecified; Z86.73 Personal history of transient ischemic attack (TIA), and cerebral infarction without residual deficits; Z87.442 Personal history of urinary calculi; Z88.0 Allergy status to penicillin; Z88.2 Allergy status to sulfonamides; Z88.8 Allergy status to other drugs, medicaments and biological substances; Z91.010 Allergy to peanuts; Z91.013 Allergy to seafood; Z79.899 Other long term (current) drug therapy
CPT/HCPCS: 36415; 74176; 80053; 80307; 81001; 82150; 83690; 83735; 84702; 85025; 85610; 85730

== ENCOUNTER 2019-01-24 01:34 | Emergency (ER) | payer MEDICAID ==
[~2019-01-24] VITALS: Ht 167.6 cm; Wt 68.0 kg
[2019-01-24] MEDS ORDERED: ACETAMINOPHEN 650 mg PER 20 mL UD PO ONE (04:45)
[2019-01-24 05:45] LABS: Urine WBC None Seen /hpf (0 - 3)
[2019-01-24] MEDS ORDERED: ACETAMINOPHEN 325 MG TAB PO ONE (05:45)
[2019-01-24 05:54] LABS: Urine Bacteria NONE SEEN /hpf (None Seen); Urine Blood Negative /uL (Negative); Urine Mucus FEW (None Seen); Urine Specific Gravity 1.012 (1.001-1.035)
[2019-01-24 06:16] VITALS: BP 121/62
== END 2019-01-24 07:00 | disposition home or self-care (01) ==
LOC: EDBD 01:34 → ER 01:38
DX: N39.0 Urinary tract infection, site not specified (principal); J44.9 Chronic obstructive pulmonary disease, unspecified; E11.9 Type 2 diabetes mellitus without complications; K21.9 Gastro-esophageal reflux disease without esophagitis; E78.5 Hyperlipidemia, unspecified; I10 Essential (primary) hypertension; F17.210 Nicotine dependence, cigarettes, uncomplicated; Z86.73 Personal history of transient ischemic attack (TIA), and cerebral infarction without residual deficits; Z88.2 Allergy status to sulfonamides; Z88.1 Allergy status to other antibiotic agents; Z91.010 Allergy to peanuts; Z88.0 Allergy status to penicillin; Z91.013 Allergy to seafood; Z79.899 Other long term (current) drug therapy
CPT/HCPCS: 81001

== ENCOUNTER 2019-02-10 19:45 | Emergency (ER) | payer MEDICAID ==
[~2019-02-10] VITALS: Ht 175.3 cm; Wt 68.0 kg
[2019-02-11 02:03] LABS: Urine Bacteria FEW /hpf (None Seen); Urine Blood 1+ /uL (Negative); Urine Hyaline Cast FEW /lpf (0 - 2); Urine Specific Gravity 1.024 (1.001-1.035); Urine WBC 3 /hpf (0 - 3)
[2019-02-11 05:30] VITALS: BP 103/57
== END 2019-02-11 07:02 | disposition home or self-care (01) ==
LOC: EDBD 19:45 → ER 19:45
DX: K59.00 Constipation, unspecified (principal); J44.9 Chronic obstructive pulmonary disease, unspecified; E11.9 Type 2 diabetes mellitus without complications; K21.9 Gastro-esophageal reflux disease without esophagitis; E78.5 Hyperlipidemia, unspecified; I10 Essential (primary) hypertension; F17.210 Nicotine dependence, cigarettes, uncomplicated; Z87.442 Personal history of urinary calculi; Z88.0 Allergy status to penicillin; Z88.2 Allergy status to sulfonamides; Z91.010 Allergy to peanuts; Z91.013 Allergy to seafood
CPT/HCPCS: 74176; 81001

== ENCOUNTER 2019-02-24 16:36 | Emergency (ER) | payer MEDICAID ==
[~2019-02-24] VITALS: Ht 175.3 cm; Wt 68.0 kg
[2019-02-25 06:27] LABS: Urine Bacteria FEW /hpf (None Seen); Urine Blood TRACE /uL (Negative); Urine Specific Gravity 1.021 (1.001-1.035); Urine WBC 3 /hpf (0 - 3)
[2019-02-25 08:35] VITALS: BP 124/68
== END 2019-02-25 08:51 | disposition home or self-care (01) ==
LOC: ER 16:36 → EDBD 16:36 → ER 02-25 08:51
DX: R10.13 Epigastric pain (principal); R10.11 Right upper quadrant pain; R10.31 Right lower quadrant pain; J44.9 Chronic obstructive pulmonary disease, unspecified; E11.9 Type 2 diabetes mellitus without complications; K21.9 Gastro-esophageal reflux disease without esophagitis; E78.5 Hyperlipidemia, unspecified; I10 Essential (primary) hypertension; F17.210 Nicotine dependence, cigarettes, uncomplicated; Z88.2 Allergy status to sulfonamides; Z88.0 Allergy status to penicillin; Z91.010 Allergy to peanuts; Z91.013 Allergy to seafood; Z79.82 Long term (current) use of aspirin; Z79.899 Other long term (current) drug therapy
CPT/HCPCS: 81001

== ENCOUNTER 2019-03-05 16:39 | Emergency (ER) | payer MEDICAID ==
[~2019-03-05] VITALS: Ht 175.3 cm; Wt 74.8 kg
[2019-03-05 17:32] LABS: Basophils # (auto) 0 uL; Basophils % (auto) 0.3 % (0.0-2.0); Eosinophils # (auto) 0 uL; Eosinophils % (auto) 0.6 % (0.0-7.0); Hematocrit 48.7 % (41.0-53.0); Hemoglobin 16.1 g/dL (13.5-17.5); Lymphocytes % (auto) 11.7 % (10.0-50.0); Mean Corpuscular Hgb Conc. 33.1 g/dL (32.0-36.0); Mean Corpuscular Volume 93.6 fL (80.0-100.0); Monocytes # (auto) 0.5 uL; Monocytes % (auto) 6.2 % (0.0-12.0); Neutrophils # (auto) 6.7 uL; Neutrophils % (auto) 81.2 % (37.0-80.0); Platelet Count (auto) 270 10^3/uL (140-450); Red Cell Distribution Width 14.4 % (11.8-14.3); White Blood Cell 8.3 10^3/uL (4.4-10.8)
[2019-03-05 17:36] LABS: Albumin 4.2 g/dL (3.4-5.0); Anion Gap 6 (5-15); Blood Urea Nitrogen 22 mg/dL (7-18); Calcium 8.4 mg/dL (8.5-10.1); Carbon Dioxide 22 mmol/L (21-32); Chloride 112 mmol/L (98-107); Glucose 119 mg/dL (74-106); Potassium 4.4 mmol/L (3.5-5.1); Sodium 140 mmol/L (136-145)
[2019-03-05] MEDS ORDERED: SODIUM CHLORIDE 0.9% 1,000 ML IVB ONE (17:40)
[2019-03-05 17:42] LABS: Alanine Aminotransferase 31 U/L (16-61); Alkaline Phosphatase 66 U/L (45-117); Aspartate Aminotransferase 29 U/L (15-37); BUN/Creatinine Ratio 27.5; Bilirubin, Total 0.4 mg/dL (0.2-1.0); GFR African American 134 mL/min; GFR Non-African American 111 mL/min; Total Protein 7.4 g/dL (6.4-8.2)
[2019-03-05 18:45] LABS: Magnesium 2.3 mg/dL (1.6-2.6)
[2019-03-05 18:53] LABS: INR 0.97 (0.9-1.15); Partial Thromboplastin Time 25.1 sec (23.64-32.05)
[2019-03-05 20:29] LABS: Urine Bacteria NONE SEEN /hpf (None Seen); Urine Blood Negative /uL (Negative); Urine WBC 1 /hpf (0 - 3)
[2019-03-06] MEDS ORDERED: ONDANSETRON HCL 4 MG/2 ML VIAL IV ONE (00:15)
[2019-03-06] MEDS ORDERED: MORPHINE SULFATE 4 MG/ML SYR/VIAL IV ONE (00:15)
[2019-03-06 03:30] VITALS: BP 136/88
== END 2019-03-06 03:56 | disposition home or self-care (01) ==
LOC: EDBD 16:39 → ER 16:39 → EDUNIT# 16:39 → ER 03-06 03:56
DX: S33.5XXA Sprain of ligaments of lumbar spine, initial encounter (principal); M79.10 Myalgia, unspecified site; H92.03 Otalgia, bilateral; M25.572 Pain in left ankle and joints of left foot; J44.9 Chronic obstructive pulmonary disease, unspecified; E11.9 Type 2 diabetes mellitus without complications; K21.9 Gastro-esophageal reflux disease without esophagitis; E78.00 Pure hypercholesterolemia, unspecified; I10 Essential (primary) hypertension; F17.210 Nicotine dependence, cigarettes, uncomplicated; Z88.0 Allergy status to penicillin; Z88.1 Allergy status to other antibiotic agents; Z88.2 Allergy status to sulfonamides; Z91.010 Allergy to peanuts; Z91.013 Allergy to seafood; Z79.899 Other long term (current) drug therapy; X58.XXXA Exposure to other specified factors, initial encounter; Y93.89 Activity, other specified; Y92.89 Other specified places as the place of occurrence of the external cause; Y99.8 Other external cause status
CPT/HCPCS: 36415; 71045; 73610; 74176; 80053; 81001; 82150; 83690; 83735; 84484; 85025; 85610; 85730; 93005; 94761; 96374; 96375; 99284; J2270; J2405; J7030

== ENCOUNTER 2019-05-31 12:55 | Emergency (ER) | payer MEDICAID ==
[~2019-05-31] VITALS: Ht 175.3 cm; Wt 68.0 kg
[2019-05-31 13:06] VITALS: BP 126/73
== END 2019-05-31 17:40 | disposition left against medical advice (07) ==
LOC: EDUNIT# 12:55 → ER 12:58
DX: M54.2 Cervicalgia (principal); Z53.21 Procedure and treatment not carried out due to patient leaving prior to being seen by health care provider

== ENCOUNTER 2019-06-09 04:08 | Emergency (ER) | payer MEDICAID ==
[~2019-06-09] VITALS: Ht 175.3 cm; Wt 71.7 kg
[2019-06-09 07:35] VITALS: BP 127/82
[2019-06-09] MEDS ORDERED: IBUPROFEN 800 MG TAB PO ONE (08:00)
== END 2019-06-09 08:29 | disposition home or self-care (01) ==
LOC: ER 04:08
DX: K12.2 Cellulitis and abscess of mouth (principal); J02.9 Acute pharyngitis, unspecified; J44.9 Chronic obstructive pulmonary disease, unspecified; E11.9 Type 2 diabetes mellitus without complications; K21.9 Gastro-esophageal reflux disease without esophagitis; E78.5 Hyperlipidemia, unspecified; F17.210 Nicotine dependence, cigarettes, uncomplicated; Z87.440 Personal history of urinary (tract) infections
CPT/HCPCS: 71046

== ENCOUNTER 2019-09-02 14:20 | Emergency (ER) | payer MEDICAID ==
[~2019-09-02] VITALS: Ht 180.3 cm; Wt 68.0 kg
[2019-09-02 14:32] VITALS: BP 123/76
[2019-09-02] MEDS ORDERED: KETOROLAC TROMETH 60MG/2ML VIAL IM ONE (15:30)
== END 2019-09-02 16:07 | disposition home or self-care (01) ==
LOC: EDBD 14:20 → ER 14:20
DX: L60.0 Ingrowing nail (principal); J44.9 Chronic obstructive pulmonary disease, unspecified; E11.9 Type 2 diabetes mellitus without complications; K21.9 Gastro-esophageal reflux disease without esophagitis; E78.5 Hyperlipidemia, unspecified; I10 Essential (primary) hypertension; F17.210 Nicotine dependence, cigarettes, uncomplicated; Z87.440 Personal history of urinary (tract) infections; Z88.0 Allergy status to penicillin; Z88.1 Allergy status to other antibiotic agents; Z88.6 Allergy status to analgesic agent; Z88.2 Allergy status to sulfonamides; Z88.8 Allergy status to other drugs, medicaments and biological substances; Z79.899 Other long term (current) drug therapy
CPT/HCPCS: 96372; 99283; J1885

== ENCOUNTER 2019-10-13 13:37 | Emergency (ER) | payer MEDICAID ==
[~2019-10-13] VITALS: Ht 175.3 cm; Wt 64.0 kg
[~2019-10-13 13:37] MED LIST changes: -LORA1TAB12 OR; +LORA1TAB23 OR
[2019-10-13 13:44] VITALS: BP 143/72
== END 2019-10-13 16:21 | disposition home or self-care (01) ==
LOC: ER 13:37
DX: L29.9 Pruritus, unspecified (principal); F17.210 Nicotine dependence, cigarettes, uncomplicated; J44.9 Chronic obstructive pulmonary disease, unspecified; E11.9 Type 2 diabetes mellitus without complications; K21.9 Gastro-esophageal reflux disease without esophagitis; Z88.2 Allergy status to sulfonamides; Z88.6 Allergy status to analgesic agent; Z88.0 Allergy status to penicillin

== ENCOUNTER 2019-12-20 21:07 | Emergency (ER) | payer MEDICAID ==
[~2019-12-20] VITALS: Ht 177.8 cm; Wt 81.6 kg
[~2019-12-20 21:07] MED LIST changes: +LORA1TAB12 OR; -LORA1TAB23 OR
[2019-12-20 22:51] LABS: Basophils # (auto) 0 10 ^3/uL (0-0.2); Basophils % (auto) 0.4 % (0.0-2.0); Eosinophils # (auto) 0.3 10 ^3/uL (0-0.8); Eosinophils % (auto) 3.4 % (0.0-7.0); Hematocrit 48.3 % (41.0-53.0); Hemoglobin 16.1 g/dL (13.5-17.5); Lymphocytes # (auto) 2.2 10 ^3/uL (0.4-5.4); Lymphocytes % (auto) 27.1 % (10.0-50.0); Mean Corpuscular Hemoglobin 30.9 pg (28.0-32.0); Mean Corpuscular Hgb Conc. 33.4 g/dL (32.0-36.0); Mean Corpuscular Volume 92.5 fL (80.0-100.0); Monocytes % (auto) 12.4 % (0.0-12.0); Neutrophils # (auto) 4.6 10 ^3/uL (1.6-8.6); Neutrophils % (auto) 56.7 % (37.0-80.0); Nucleated Red Blood Cells % 0.1 %; Platelet Count (auto) 283 10^3/uL (140-450); Red Blood Cells 5.21 10^6/uL (4.5-5.90); Red Cell Distribution Width 14.3 % (11.8-14.3); White Blood Cell 8.1 10^3/uL (4.4-10.8)
[2019-12-20 23:09] LABS: Albumin 3.7 g/dL (3.4-5.0); Calcium 8.3 mg/dL (8.5-10.1)
[2019-12-20 23:11] LABS: BUN/Creatinine Ratio 21.7
[2019-12-20 23:13] LABS: Bilirubin, Total 0.7 mg/dL (0.2-1.0)
[2019-12-21] MEDS ORDERED: SODIUM CHLORIDE 0.9% 1,000 ML IV ONE (06:30)
[2019-12-21] MEDS ORDERED: ASPirin 81 mg TAB PO ONE (07:00)
[2019-12-21 07:47] VITALS: BP 107/60
== END 2019-12-21 07:41 | disposition home or self-care (01) ==
LOC: ER 21:07 → EDBD 21:07 → ER 12-21 07:41
DX: K29.70 Gastritis, unspecified, without bleeding (principal); F41.9 Anxiety disorder, unspecified; J44.9 Chronic obstructive pulmonary disease, unspecified; E11.9 Type 2 diabetes mellitus without complications; K21.9 Gastro-esophageal reflux disease without esophagitis; E78.5 Hyperlipidemia, unspecified; I10 Essential (primary) hypertension; Z88.2 Allergy status to sulfonamides; Z91.013 Allergy to seafood
CPT/HCPCS: 36415; 80053; 83690; 84484; 85025; 96360; 99283; J7030

== ENCOUNTER 2019-12-24 22:35 | Emergency (ER) | payer MEDICAID ==
[~2019-12-24] VITALS: Ht 175.3 cm; Wt 63.0 kg
[2019-12-24] MEDS ORDERED: SODIUM CHLORIDE 0.9% 1,000 ML IV ONE (23:15)
[2019-12-24] MEDS ORDERED: PANTOPRAZOLE 40 MG/10 ML VIAL INJ IV ONE (23:15)
[2019-12-24 23:16] LABS: Basophils # (auto) 0.1 10 ^3/uL (0-0.2); Basophils % (auto) 0.6 % (0.0-2.0); Eosinophils # (auto) 0.1 10 ^3/uL (0-0.8); Eosinophils % (auto) 1.8 % (0.0-7.0); Hematocrit 49.5 % (41.0-53.0); Hemoglobin 16.6 g/dL (13.5-17.5); Lymphocytes % (auto) 25.1 % (10.0-50.0); Mean Corpuscular Hemoglobin 31.1 pg (28.0-32.0); Mean Corpuscular Hgb Conc. 33.5 g/dL (32.0-36.0); Mean Corpuscular Volume 92.7 fL (80.0-100.0); Monocytes # (auto) 0.7 10 ^3/uL (0-1.3); Monocytes % (auto) 8.6 % (0.0-12.0); Neutrophils % (auto) 63.9 % (37.0-80.0); Platelet Count (auto) 288 10^3/uL (140-450); Red Blood Cells 5.33 10^6/uL (4.5-5.90); White Blood Cell 7.9 10^3/uL (4.4-10.8)
[2019-12-24] MEDS ORDERED: ONDANSETRON HCL 4 MG/2 ML VIAL IV ONE (23:30)
[2019-12-24 23:41] LABS: Albumin 3.4 g/dL (3.4-5.0); BUN/Creatinine Ratio 14.9; Calcium 8.1 mg/dL (8.5-10.1); Potassium 3.8 mmol/L (3.5-5.1)
[2019-12-24 23:43] LABS: Bilirubin, Total 0.6 mg/dL (0.2-1.0); Total Protein 6.6 g/dL (6.4-8.2)
[2019-12-25 00:01] LABS: Urine Bacteria NONE SEEN /hpf (None Seen); Urine Blood TRACE /uL (Negative); Urine Hyaline Cast FEW /lpf (0 - 2); Urine Mucus FEW (None Seen); Urine Specific Gravity 1.019 (1.001-1.035); Urine WBC 2 /hpf (0 - 3)
[2019-12-25 00:19] LABS: Amphetamine Screen, Urine POSITIVE (NEGATIVE); Barbiturate Scree,Urine NEGATIVE (NEGATIVE); Benzodiazephine Screen, Urine NEGATIVE (NEGATIVE); Cannabinoid Screen, Urine NEGATIVE (NEGATIVE); Cocaine Screen, Urine NEGATIVE (NEGATIVE); Phencyclidine Screen, Urine NEGATIVE (NEGATIVE)
[2019-12-25 00:27] LABS: Opiate Scree,Urine POSITIVE (NEGATIVE)
[2019-12-25] MEDS ORDERED: diphenhdrAMINE HCL 50 MG/1 ML VL IV ONE (01:00)
[2019-12-25] MEDS ORDERED: HYDROcodone-ACET 7.5/325MG TAB PO ONE (01:00)
[2019-12-25 03:04] VITALS: BP 131/75
== END 2019-12-25 01:41 | disposition home or self-care (01) ==
LOC: ER 22:36
DX: K52.9 Noninfective gastroenteritis and colitis, unspecified (principal); N39.0 Urinary tract infection, site not specified; K42.9 Umbilical hernia without obstruction or gangrene; K59.00 Constipation, unspecified; Z71.51 Drug abuse counseling and surveillance of drug abuser; F15.10 Other stimulant abuse, uncomplicated; F11.90 Opioid use, unspecified, uncomplicated; J44.9 Chronic obstructive pulmonary disease, unspecified; E11.9 Type 2 diabetes mellitus without complications; K21.9 Gastro-esophageal reflux disease without esophagitis; E78.5 Hyperlipidemia, unspecified; I10 Essential (primary) hypertension; Z88.2 Allergy status to sulfonamides; Z91.010 Allergy to peanuts; Z88.0 Allergy status to penicillin; Z91.013 Allergy to seafood
CPT/HCPCS: 36415; 74176; 80053; 80307; 81001; 82150; 83690; 85025; 96361; 96374; 96375; 99284; C9113; J1200; J2405

== ENCOUNTER 2019-12-25 22:26 | Emergency (ER) | payer MEDICAID ==
[~2019-12-25] VITALS: Ht 175.3 cm; Wt 69.4 kg
[~2019-12-25 22:26] MED LIST changes: -LORA1TAB12 OR; +LORA1TAB23 OR
[2019-12-26] LABS: Urine Bacteria FEW /hpf (None Seen); Urine Blood TRACE /uL (Negative); Urine Mucus FEW (None Seen); Urine Specific Gravity 1.017 (1.001-1.035); Urine WBC 1 /hpf (0 - 3)
[2019-12-26 00:12] LABS: Alcohol, Urine < 3.0 mg/dL (0-10); Amphetamine Screen, Urine POSITIVE (NEGATIVE); Barbiturate Scree,Urine NEGATIVE (NEGATIVE); Benzodiazephine Screen, Urine NEGATIVE (NEGATIVE); Cannabinoid Screen, Urine NEGATIVE (NEGATIVE); Cocaine Screen, Urine NEGATIVE (NEGATIVE); Opiate Scree,Urine NEGATIVE (NEGATIVE); Phencyclidine Screen, Urine NEGATIVE (NEGATIVE)
[2019-12-26 16:11] LABS: Basophils # (auto) 0 10 ^3/uL (0-0.2); Basophils % (auto) 0.5 % (0.0-2.0); Eosinophils # (auto) 0.1 10 ^3/uL (0-0.8); Eosinophils % (auto) 1.6 % (0.0-7.0); Hematocrit 49.3 % (41.0-53.0); Hemoglobin 16.3 g/dL (13.5-17.5); Lymphocytes # (auto) 1.9 10 ^3/uL (0.4-5.4); Lymphocytes % (auto) 23.6 % (10.0-50.0); Mean Corpuscular Hemoglobin 30.8 pg (28.0-32.0); Mean Corpuscular Hgb Conc. 33.1 g/dL (32.0-36.0); Mean Corpuscular Volume 93.1 fL (80.0-100.0); Monocytes # (auto) 0.8 10 ^3/uL (0-1.3); Monocytes % (auto) 10.1 % (0.0-12.0); Neutrophils # (auto) 5.3 10 ^3/uL (1.6-8.6); Neutrophils % (auto) 64.2 % (37.0-80.0); Nucleated Red Blood Cells % 0.1 %; Platelet Count (auto) 293 10^3/uL (140-450); Red Blood Cells 5.29 10^6/uL (4.5-5.90); Red Cell Distribution Width 14.2 % (11.8-14.3); White Blood Cell 8.3 10^3/uL (4.4-10.8)
[2019-12-26 16:28] LABS: Albumin 3.7 g/dL (3.4-5.0); Anion Gap 4 (5-15); BUN/Creatinine Ratio 15.8; Blood Alcohol < 3.0 mg/dL (0-5); Blood Urea Nitrogen 12 mg/dL (7-18); Calcium 8.5 mg/dL (8.5-10.1); Carbon Dioxide 31 mmol/L (21-32); Chloride 105 mmol/L (98-107); GFR African American 141 mL/min; GFR Non-African American 117 mL/min; Glucose 101 mg/dL (74-106); Potassium 4.1 mmol/L (3.5-5.1); Sodium 140 mmol/L (136-145)
[2019-12-26 16:30] LABS: Acetaminophen < 2.0 ug/mL (10-30); Salicylate < 1.7 mg/dL (2.8-20.0)
[2019-12-26 16:37] LABS: Alanine Aminotransferase 27 U/L (16-61); Alkaline Phosphatase 76 U/L (45-117); Aspartate Aminotransferase 20 U/L (15-37); Bilirubin, Total 0.5 mg/dL (0.2-1.0)
[2019-12-27] MEDS ORDERED: LORazepam 0.5 MG TAB ONE (21:54)
[2019-12-27] MEDS: LORazepam 0.5 MG TAB PO SCH (22:24)
[2019-12-28] MEDS: LORazepam 0.5 MG TAB PO SCH ×2 (10:15→23:28)
[2019-12-29 10:19] VITALS: BP 124/68
[2019-12-29] MEDS: LORazepam 0.5 MG TAB PO SCH (10:28)
== END 2019-12-29 10:50 | disposition home or self-care (01) ==
LOC: ER 22:28
DX: F32.9 Major depressive disorder, single episode, unspecified (principal); R45.851 Suicidal ideations; Z03.818 Encounter for observation for suspected exposure to other biological agents ruled out; F20.9 Schizophrenia, unspecified; J44.9 Chronic obstructive pulmonary disease, unspecified; E11.9 Type 2 diabetes mellitus without complications; F41.9 Anxiety disorder, unspecified; F17.210 Nicotine dependence, cigarettes, uncomplicated; Z59.0 Homelessness
CPT/HCPCS: 36415; 80053; 80307; 80320; 80329; 81001; 85025; 99285; C9803; U0003

== ENCOUNTER 2020-03-10 01:43 | Emergency (ER) | payer MEDICAID ==
[~2020-03-10] VITALS: Ht 172.7 cm; Wt 68.0 kg
[2020-03-10 02:20] LABS: Basophils # (auto) 0 10 ^3/uL (0-0.2); Basophils % (auto) 0.4 % (0.0-2.0); Eosinophils # (auto) 0.1 10 ^3/uL (0-0.8); Eosinophils % (auto) 1.1 % (0.0-7.0); Hematocrit 47.3 % (41.0-53.0); Hemoglobin 15.9 g/dL (13.5-17.5); Lymphocytes # (auto) 1.7 10 ^3/uL (0.4-5.4); Lymphocytes % (auto) 16.5 % (10.0-50.0); Mean Corpuscular Hemoglobin 31.5 pg (28.0-32.0); Mean Corpuscular Hgb Conc. 33.7 g/dL (32.0-36.0); Mean Corpuscular Volume 93.5 fL (80.0-100.0); Monocytes # (auto) 0.9 10 ^3/uL (0-1.3); Monocytes % (auto) 9.2 % (0.0-12.0); Neutrophils # (auto) 7.4 10 ^3/uL (1.6-8.6); Neutrophils % (auto) 72.8 % (37.0-80.0); Platelet Count (auto) 297 10^3/uL (140-450); Red Blood Cells 5.05 10^6/uL (4.5-5.90); Red Cell Distribution Width 13.9 % (11.8-14.3); White Blood Cell 10.1 10^3/uL (4.4-10.8)
[2020-03-10 02:39] LABS: Albumin 2.4 g/dL (3.4-5.0); BUN/Creatinine Ratio 30.4; Calcium 8.4 mg/dL (8.5-10.1); Potassium 3.8 mmol/L (3.5-5.1)
[2020-03-10 02:42] LABS: Bilirubin, Total 0.4 mg/dL (0.2-1.0); Total Protein 6.9 g/dL (6.4-8.2)
[2020-03-10 05:23] LABS: Urine Bacteria FEW /hpf (None Seen); Urine Blood TRACE /uL (Negative); Urine Mucus FEW (None Seen); Urine Specific Gravity 1.027 (1.001-1.035); Urine WBC 4 /hpf (0 - 3)
[2020-03-10 06:20] VITALS: BP 110/62
== END 2020-03-10 06:31 | disposition home or self-care (01) ==
LOC: EDUNIT# 01:43 → EDBD 01:43 → ER 01:46
DX: K52.9 Noninfective gastroenteritis and colitis, unspecified (principal); J44.9 Chronic obstructive pulmonary disease, unspecified; E11.9 Type 2 diabetes mellitus without complications; F17.210 Nicotine dependence, cigarettes, uncomplicated; Z88.2 Allergy status to sulfonamides; Z88.1 Allergy status to other antibiotic agents; Z91.013 Allergy to seafood
CPT/HCPCS: 36415; 74176; 80053; 81001; 83605; 83690; 85025

== ENCOUNTER 2020-03-10 07:27 | Emergency (ER) | payer MEDICAID ==
[~2020-03-10] VITALS: Ht 170.2 cm; Wt 68.0 kg
[2020-03-10 08:07] VITALS: BP 111/72
[2020-03-10] MEDS ORDERED: ACETAMINOPHEN 500 MG TAB PO ONE (09:00)
== END 2020-03-10 09:28 | disposition home or self-care (01) ==
LOC: ER 07:27
DX: S00.83XA Contusion of other part of head, initial encounter (principal); J44.9 Chronic obstructive pulmonary disease, unspecified; E11.9 Type 2 diabetes mellitus without complications; F17.210 Nicotine dependence, cigarettes, uncomplicated; Z88.2 Allergy status to sulfonamides; Z88.1 Allergy status to other antibiotic agents; Z91.013 Allergy to seafood; Y04.0XXA Assault by unarmed brawl or fight, initial encounter; Y93.89 Activity, other specified; Y92.89 Other specified places as the place of occurrence of the external cause; Y99.8 Other external cause status

== ENCOUNTER 2020-05-15 16:51 | Emergency (ER) | payer MEDICAID ==
[~2020-05-15] VITALS: Ht 177.8 cm; Wt 68.0 kg
[2020-05-15 17:43] LABS: Basophils # (auto) 0.1 10 ^3/uL (0-0.2); Basophils % (auto) 0.5 % (0.0-2.0); Eosinophils # (auto) 0.1 10 ^3/uL (0-0.8); Eosinophils % (auto) 1.2 % (0.0-7.0); Hematocrit 49.7 % (41.0-53.0); Hemoglobin 16.3 g/dL (13.5-17.5); Lymphocytes # (auto) 1.8 10 ^3/uL (0.4-5.4); Lymphocytes % (auto) 18.6 % (10.0-50.0); Mean Corpuscular Hemoglobin 30.5 pg (28.0-32.0); Mean Corpuscular Hgb Conc. 32.7 g/dL (32.0-36.0); Monocytes # (auto) 0.9 10 ^3/uL (0-1.3); Monocytes % (auto) 9.7 % (0.0-12.0); Neutrophils # (auto) 6.7 10 ^3/uL (1.6-8.6); Nucleated Red Blood Cells % 0.1 %; Platelet Count (auto) 296 10^3/uL (140-450); Red Blood Cells 5.34 10^6/uL (4.5-5.90); Red Cell Distribution Width 13.9 % (11.8-14.3); White Blood Cell 9.5 10^3/uL (4.4-10.8)
[2020-05-15 18:02] LABS: Albumin 3.7 g/dL (3.4-5.0); Calcium 8.4 mg/dL (8.5-10.1); Potassium 4.2 mmol/L (3.5-5.1)
[2020-05-15 18:07] LABS: BUN/Creatinine Ratio 25.3; Bilirubin, Total 0.5 mg/dL (0.2-1.0)
[2020-05-15 20:12] LABS: Urine Bacteria NONE SEEN /hpf (None Seen); Urine Blood TRACE /uL (Negative); Urine Hyaline Cast FEW /lpf (0 - 2); Urine Mucus FEW (None Seen); Urine Specific Gravity 1.023 (1.001-1.035); Urine WBC 2 /hpf (0 - 3)
[2020-05-15 21:25] VITALS: BP 120/74
== END 2020-05-15 21:55 | disposition home or self-care (01) ==
LOC: EDUNIT# 16:51 → EDSEX 16:51 → EDBD 16:51 → ER 16:54
DX: K59.00 Constipation, unspecified (principal); E11.9 Type 2 diabetes mellitus without complications; J44.9 Chronic obstructive pulmonary disease, unspecified; F17.210 Nicotine dependence, cigarettes, uncomplicated; Z79.899 Other long term (current) drug therapy; Z79.82 Long term (current) use of aspirin; Z88.1 Allergy status to other antibiotic agents; Z88.0 Allergy status to penicillin; Z88.8 Allergy status to other drugs, medicaments and biological substances
CPT/HCPCS: 36415; 74176; 80053; 81001; 82150; 83690; 85025

== ENCOUNTER → 2020-07-07 | Outpatient (CLI) | payer MEDICAID ==
[2020-07-07 17:28] LABS: Calcium 8.5 mg/dL (8.5-10.1); Potassium 4.1 mmol/L (3.5-5.1)
[2020-07-07 17:31] LABS: Bilirubin, Total 0.6 mg/dL (0.2-1.0); Total Protein 7.4 g/dL (6.4-8.2)
[2020-07-07 17:32] LABS: BUN/Creatinine Ratio 27.7
== END | disposition home or self-care (01) ==
LOC: LAB 17:02
PROVIDERS: ATTEND Podiatrist
DX: R73.03 Prediabetes (principal)
CPT/HCPCS: 36415; 80053; 83036

== ENCOUNTER 2020-07-15 21:17 | Emergency (ER) | payer MEDICAID ==
[~2020-07-15] VITALS: Ht 182.9 cm; Wt 72.6 kg
[2020-07-15] MEDS ORDERED: SODIUM CHLORIDE 0.9% 2,000 ML IV ONE (21:30)
[2020-07-15] MEDS ORDERED: MORPHINE SULFATE 4 MG/ML SYR/VIAL IV ONE (21:30)
[2020-07-15] MEDS ORDERED: ONDANSETRON HCL 4 MG/2 ML VIAL IV ONE (21:30)
[2020-07-15 22:23] LABS: Basophils # (auto) 0 10 ^3/uL (0-0.2); Basophils % (auto) 0.5 % (0.0-2.0); Eosinophils # (auto) 0.1 10 ^3/uL (0-0.8); Eosinophils % (auto) 1.5 % (0.0-7.0); Hematocrit 46.1 % (41.0-53.0); Hemoglobin 15.8 g/dL (13.5-17.5); Lymphocytes # (auto) 1.9 10 ^3/uL (0.4-5.4); Lymphocytes % (auto) 26.7 % (10.0-50.0); Mean Corpuscular Hemoglobin 30.9 pg (28.0-32.0); Mean Corpuscular Hgb Conc. 34.4 g/dL (32.0-36.0); Monocytes # (auto) 0.6 10 ^3/uL (0-1.3); Monocytes % (auto) 9.3 % (0.0-12.0); Neutrophils # (auto) 4.3 10 ^3/uL (1.6-8.6); Platelet Count (auto) 278 10^3/uL (140-450); Red Blood Cells 5.12 10^6/uL (4.5-5.90); Red Cell Distribution Width 13.4 % (11.8-14.3)
[2020-07-15 22:38] LABS: INR 0.97 (0.9-1.15); Partial Thromboplastin Time 20.4 sec (23.0-31.2)
[2020-07-15 22:46] LABS: Albumin 3.4 g/dL (3.4-5.0); Anion Gap 2 (5-15); Blood Urea Nitrogen 25 mg/dL (7-18); Calcium 7.8 mg/dL (8.5-10.1); Carbon Dioxide 27 mmol/L (21-32); Chloride 110 mmol/L (98-107); Glucose 174 mg/dL (74-106); Lipase 97 U/L (73-393); Sodium 139 mmol/L (136-145)
[2020-07-15 22:58] LABS: Alanine Aminotransferase 42 U/L (16-61); Alkaline Phosphatase 73 U/L (45-117); Aspartate Aminotransferase 30 U/L (15-37); BUN/Creatinine Ratio 33.8; Bilirubin, Total 0.5 mg/dL (0.2-1.0); GFR African American 146 mL/min; GFR Non-African American 120 mL/min; Total Protein 6.7 g/dL (6.4-8.2)
[2020-07-15] MEDS ORDERED: IOHEXOL 300 MG/ML 100ML BOTTLE IJ ONE (23:24)
[2020-07-16] MEDS ORDERED: MAGNESIUM CITRATE SOLUTION 300 ML BTL PO ONE (05:30)
[2020-07-16 05:57] VITALS: BP 124/70
== END 2020-07-16 05:39 | disposition home or self-care (01) ==
LOC: EDBD 21:17 → ER 21:17
DX: K59.00 Constipation, unspecified (principal); J44.9 Chronic obstructive pulmonary disease, unspecified; E11.9 Type 2 diabetes mellitus without complications; F17.210 Nicotine dependence, cigarettes, uncomplicated; F12.10 Cannabis abuse, uncomplicated; Z59.0 Homelessness; Z88.2 Allergy status to sulfonamides; Z88.0 Allergy status to penicillin; Z91.013 Allergy to seafood
CPT/HCPCS: 36415; 74176; 80053; 83605; 83690; 84484; 85025; 85610; 85730; 87040; 96361; 96374; 96375; 99285; J2270; J2405; J7030

== ENCOUNTER 2020-07-20 02:41 | Emergency (ER) | payer MEDICAID ==
[~2020-07-20] VITALS: Ht 185.4 cm; Wt 90.7 kg
[~2020-07-20 02:41] MED LIST changes: +DIVA500T2 OR; +DIVA500T2 PO; -DIVA500T53 OR; -DIVA500T53 PO; -METO-5 PO; +METO1TAB77 PO; +PHEN100C PO; -PHEN100C70 PO
[2020-07-20 07:29] LABS: Basophils # (auto) 0 10 ^3/uL (0-0.2); Basophils % (auto) 0.5 % (0.0-2.0); Eosinophils # (auto) 0.1 10 ^3/uL (0-0.8); Eosinophils % (auto) 1.3 % (0.0-7.0); Hemoglobin 16.9 g/dL (13.5-17.5); Lymphocytes # (auto) 1.9 10 ^3/uL (0.4-5.4); Lymphocytes % (auto) 27.7 % (10.0-50.0); Mean Corpuscular Hemoglobin 30.5 pg (28.0-32.0); Mean Corpuscular Hgb Conc. 33.7 g/dL (32.0-36.0); Mean Corpuscular Volume 90.3 fL (80.0-100.0); Monocytes # (auto) 0.7 10 ^3/uL (0-1.3); Monocytes % (auto) 10.4 % (0.0-12.0); Neutrophils # (auto) 4.2 10 ^3/uL (1.6-8.6); Neutrophils % (auto) 60.1 % (37.0-80.0); Nucleated Red Blood Cells % 0.3 %; Platelet Count (auto) 320 10^3/uL (140-450); Red Blood Cells 5.54 10^6/uL (4.5-5.90); Red Cell Distribution Width 13.7 % (11.8-14.3)
[2020-07-20] MEDS ORDERED: HYDROcodone-ACET 10/325MG TAB PO ONE (07:30)
[2020-07-20 07:39] LABS: Albumin 4.2 g/dL (3.4-5.0); BUN/Creatinine Ratio 31.6; Calcium 8.7 mg/dL (8.5-10.1); Potassium 4.1 mmol/L (3.5-5.1)
[2020-07-20 07:42] LABS: Bilirubin, Total 1.9 mg/dL (0.2-1.0); Total Protein 7.3 g/dL (6.4-8.2)
[2020-07-20 07:55] VITALS: BP 112/78
[2020-07-20 08:31] LABS: Urine Bacteria NONE SEEN /hpf (None Seen); Urine Blood 1+ /uL (Negative); Urine Mucus FEW (None Seen); Urine Specific Gravity 1.031 (1.001-1.035); Urine Sperm PRESENT /hpf (None Seen); Urine WBC 2 /hpf (0 - 3)
== END 2020-07-20 08:48 | disposition home or self-care (01) ==
LOC: EDBD 02:41 → ER 02:43
DX: K59.00 Constipation, unspecified (principal); F17.210 Nicotine dependence, cigarettes, uncomplicated; J44.9 Chronic obstructive pulmonary disease, unspecified; E11.9 Type 2 diabetes mellitus without complications; Z59.0 Homelessness; Z88.2 Allergy status to sulfonamides; Z88.0 Allergy status to penicillin; Z91.013 Allergy to seafood
CPT/HCPCS: 36415; 80053; 81001; 82150; 83690; 85025

== ENCOUNTER 2020-10-11 17:24 | Emergency (ER) | payer MEDICAID ==
[~2020-10-11] VITALS: Ht 170.2 cm; Wt 68.0 kg
[2020-10-11 18:11] LABS: Urine Bacteria FEW /hpf (None Seen); Urine Blood 1+ /uL (Negative); Urine Mucus FEW (None Seen); Urine Specific Gravity 1.028 (1.001-1.035); Urine WBC 45 /hpf (0 - 3)
[2020-10-11 19:28] LABS: Basophils # (auto) 0 10 ^3/uL (0-0.2); Basophils % (auto) 0.4 % (0.0-2.0); Eosinophils # (auto) 0.2 10 ^3/uL (0-0.8); Eosinophils % (auto) 2.2 % (0.0-7.0); Hematocrit 48.9 % (41.0-53.0); Hemoglobin 16.6 g/dL (13.5-17.5); Lymphocytes % (auto) 23.5 % (10.0-50.0); Mean Corpuscular Hemoglobin 30.9 pg (28.0-32.0); Mean Corpuscular Hgb Conc. 34.1 g/dL (32.0-36.0); Mean Corpuscular Volume 90.7 fL (80.0-100.0); Monocytes # (auto) 0.7 10 ^3/uL (0-1.3); Monocytes % (auto) 8.7 % (0.0-12.0); Neutrophils # (auto) 5.5 10 ^3/uL (1.6-8.6); Neutrophils % (auto) 65.2 % (37.0-80.0); Nucleated Red Blood Cells % 0.2 %; Platelet Count (auto) 311 10^3/uL (140-450); Red Blood Cells 5.39 10^6/uL (4.5-5.90); Red Cell Distribution Width 14.4 % (11.8-14.3); White Blood Cell 8.5 10^3/uL (4.4-10.8)
[2020-10-11] MEDS ORDERED: KETOROLAC TROMETH 30 MG/ML 1ML VIAL IV ONE (19:45)
[2020-10-11] MEDS ORDERED: cefTRIAXone 1GM/50ML D5W 50 ML IV ONE (19:45)
[2020-10-11] MEDS ORDERED: SODIUM CHLORIDE 0.9% 1,000 ML IV ONE (19:45)
[2020-10-11 20:08] LABS: Alcohol, Urine < 3.0 mg/dL (0-10); Amphetamine Screen, Urine POSITIVE (NEGATIVE); Barbiturate Scree,Urine NEGATIVE (NEGATIVE); Benzodiazephine Screen, Urine NEGATIVE (NEGATIVE); Cannabinoid Screen, Urine NEGATIVE (NEGATIVE); Cocaine Screen, Urine NEGATIVE (NEGATIVE); Phencyclidine Screen, Urine NEGATIVE (NEGATIVE)
[2020-10-11 20:17] LABS: Opiate Scree,Urine NEGATIVE (NEGATIVE)
[2020-10-11 20:23] LABS: Albumin 3.8 g/dL (3.4-5.0); Calcium 9.2 mg/dL (8.5-10.1); Potassium 4.3 mmol/L (3.5-5.1)
[2020-10-11 20:28] LABS: BUN/Creatinine Ratio 28.2; Bilirubin, Total 0.4 mg/dL (0.2-1.0); Total Protein 7.2 g/dL (6.4-8.2)
[2020-10-11 21:50] VITALS: BP 123/73
[2020-10-13 07:06] LABS: RPR Non Reactive (Non Reactive)
== END 2020-10-11 21:58 | disposition home or self-care (01) ==
LOC: ER 17:24
DX: N39.0 Urinary tract infection, site not specified (principal); F15.180 Other stimulant abuse with stimulant-induced anxiety disorder; F17.210 Nicotine dependence, cigarettes, uncomplicated; J44.9 Chronic obstructive pulmonary disease, unspecified; Z79.82 Long term (current) use of aspirin; Z79.899 Other long term (current) drug therapy; Z88.0 Allergy status to penicillin; Z88.2 Allergy status to sulfonamides; Z88.8 Allergy status to other drugs, medicaments and biological substances; Z91.010 Allergy to peanuts
CPT/HCPCS: 36415; 74176; 80053; 80185; 80307; 81001; 85025; 86592; 87491; 87591; 96365; 96375; 99284; J0696; J1885; J7030

== ENCOUNTER 2020-11-04 20:28 | Emergency (ER) | payer MEDICAID ==
[~2020-11-04] VITALS: Ht 177.8 cm; Wt 68.0 kg
[~2020-11-04 20:28] MED LIST changes: -ASPI-231; +ASPI1TAB20; -LISI-646; +LISI20TA28
[2020-11-04 21:54] LABS: Basophils # (auto) 0 10 ^3/uL (0-0.2); Basophils % (auto) 0.5 % (0.0-2.0); Eosinophils # (auto) 0.1 10 ^3/uL (0-0.8); Eosinophils % (auto) 1.4 % (0.0-7.0); Hematocrit 47.7 % (41.0-53.0); Hemoglobin 16.1 g/dL (13.5-17.5); Lymphocytes # (auto) 1.8 10 ^3/uL (0.4-5.4); Lymphocytes % (auto) 22.8 % (10.0-50.0); Mean Corpuscular Hemoglobin 30.8 pg (28.0-32.0); Mean Corpuscular Hgb Conc. 33.8 g/dL (32.0-36.0); Mean Corpuscular Volume 91.1 fL (80.0-100.0); Monocytes # (auto) 0.7 10 ^3/uL (0-1.3); Neutrophils # (auto) 5.3 10 ^3/uL (1.6-8.6); Neutrophils % (auto) 66.3 % (37.0-80.0); Nucleated Red Blood Cells % 0.1 %; Red Blood Cells 5.24 10^6/uL (4.5-5.90); Red Cell Distribution Width 14.1 % (11.8-14.3); White Blood Cell 8.1 10^3/uL (4.4-10.8)
[2020-11-04 22:10] LABS: Partial Thromboplastin Time 26.5 sec (23.0-31.2)
[2020-11-04 22:28] LABS: Albumin 3.6 g/dL (3.4-5.0); BUN/Creatinine Ratio 17.4; Bilirubin, Total 1.1 mg/dL (0.2-1.0); Calcium 8.6 mg/dL (8.5-10.1); Total Protein 6.9 g/dL (6.4-8.2)
[2020-11-05 04:07] VITALS: BP 108/63
== END 2020-11-05 04:47 | disposition home or self-care (01) ==
LOC: ER 20:28 → EDBD 20:28 → ER 11-05 04:47
DX: K59.00 Constipation, unspecified (principal); F17.210 Nicotine dependence, cigarettes, uncomplicated; J44.9 Chronic obstructive pulmonary disease, unspecified; F12.10 Cannabis abuse, uncomplicated; Z59.0 Homelessness; Z91.013 Allergy to seafood; Z88.2 Allergy status to sulfonamides; Z88.0 Allergy status to penicillin; Z88.1 Allergy status to other antibiotic agents
CPT/HCPCS: 36415; 74176; 80053; 82150; 83690; 83735; 85025; 85610; 85730

== ENCOUNTER 2020-11-10 15:22 | Emergency (ER) | payer MEDICAID ==
[~2020-11-10] VITALS: Ht 175.3 cm; Wt 68.9 kg
[~2020-11-10 15:22] MED LIST changes: +ASPI-231; -ASPI1TAB20
[2020-11-10] MEDS ORDERED: PROMETHAZINE HCL 25 MG/ML 1ML IV PRN (17:00)
[2020-11-10] MEDS ORDERED: SODIUM CHLORIDE 0.9% 500 ML IVB ONE (17:00)
[2020-11-10] MEDS ORDERED: SODIUM CHLORIDE 0.9% 1,000 ML IV ONE (17:00)
[2020-11-10] MEDS ORDERED: MORPHINE SULFATE 4 MG/ML SYR/VIAL IV ONE (17:00)
[2020-11-10 17:22] LABS: Basophils # (auto) 0 10 ^3/uL (0-0.2); Basophils % (auto) 0.5 % (0.0-2.0); Eosinophils # (auto) 0.1 10 ^3/uL (0-0.8); Hematocrit 44.3 % (41.0-53.0); Hemoglobin 15.2 g/dL (13.5-17.5); Lymphocytes # (auto) 1.7 10 ^3/uL (0.4-5.4); Lymphocytes % (auto) 25.4 % (10.0-50.0); Mean Corpuscular Hemoglobin 31.1 pg (28.0-32.0); Mean Corpuscular Hgb Conc. 34.3 g/dL (32.0-36.0); Mean Corpuscular Volume 90.6 fL (80.0-100.0); Monocytes # (auto) 0.7 10 ^3/uL (0-1.3); Monocytes % (auto) 9.6 % (0.0-12.0); Neutrophils # (auto) 4.3 10 ^3/uL (1.6-8.6); Neutrophils % (auto) 63.5 % (37.0-80.0); Nucleated Red Blood Cells % 0.1 %; Red Blood Cells 4.88 10^6/uL (4.5-5.90); Red Cell Distribution Width 13.9 % (11.8-14.3); White Blood Cell 6.9 10^3/uL (4.4-10.8)
[2020-11-10 17:25] LABS: Urine Bacteria NONE SEEN /hpf (None Seen); Urine Blood 3+ /uL (Negative); Urine Specific Gravity 1.024 (1.001-1.035); Urine WBC 100 /hpf (0 - 3)
[2020-11-10 17:33] LABS: Cannabinoid Screen, Urine NEGATIVE (NEGATIVE)
[2020-11-10 17:42] LABS: BUN/Creatinine Ratio 20.2; Calcium 8.6 mg/dL (8.5-10.1); Magnesium 2.4 mg/dL (1.6-2.6); Potassium 3.6 mmol/L (3.5-5.1)
[2020-11-10 17:42] LABS: Amphetamine Screen, Urine POSITIVE (NEGATIVE); Barbiturate Scree,Urine NEGATIVE (NEGATIVE); Benzodiazephine Screen, Urine NEGATIVE (NEGATIVE); Cocaine Screen, Urine NEGATIVE (NEGATIVE); Opiate Scree,Urine NEGATIVE (NEGATIVE); Phencyclidine Screen, Urine NEGATIVE (NEGATIVE)
[2020-11-10 17:45] LABS: Bilirubin, Total 1.1 mg/dL (0.2-1.0); Total Protein 7.2 g/dL (6.4-8.2)
[2020-11-10 17:56] LABS: INR 1.05 (0.9-1.15); Partial Thromboplastin Time 27.2 sec (23.0-31.2)
[2020-11-11] MEDS ORDERED: cefTRIAXone 1GM/50ML D5W 50 ML IV ONE (07:45)
[2020-11-11 09:50] VITALS: BP 107/71
== END 2020-11-11 09:59 | disposition home or self-care (01) ==
LOC: EDBD 15:22 → EDUNIT# 15:22 → ER 15:22
DX: T83.091A Other mechanical complication of indwelling urethral catheter, initial encounter (principal); N39.0 Urinary tract infection, site not specified; N20.0 Calculus of kidney; R31.0 Gross hematuria; F15.10 Other stimulant abuse, uncomplicated; F31.9 Bipolar disorder, unspecified; I10 Essential (primary) hypertension; F17.210 Nicotine dependence, cigarettes, uncomplicated; Z88.2 Allergy status to sulfonamides; Z88.1 Allergy status to other antibiotic agents; Z91.013 Allergy to seafood; Z91.018 Allergy to other foods; Z88.0 Allergy status to penicillin; Z79.82 Long term (current) use of aspirin; Z79.899 Other long term (current) drug therapy
CPT/HCPCS: 36415; 51700; 71046; 74176; 80053; 80307; 81001; 83690; 83735; 85025; 85610; 85730; 93005; 96361; 96365; 96375; 99285; J0696; J2270; J7030

== ENCOUNTER 2020-11-13 21:39 | Inpatient (IN) | payer MEDICAID ==
[~2020-11-13] VITALS: Ht 175.3 cm; Wt 68.0 kg
[2020-11-13 23:27] LABS: Basophils # (auto) 0 10 ^3/uL (0-0.2); Basophils % (auto) 0.4 % (0.0-2.0); Eosinophils # (auto) 0.2 10 ^3/uL (0-0.8); Eosinophils % (auto) 2.2 % (0.0-7.0); Hematocrit 47.6 % (41.0-53.0); Hemoglobin 16.1 g/dL (13.5-17.5); Lymphocytes % (auto) 23.2 % (10.0-50.0); Mean Corpuscular Hemoglobin 30.8 pg (28.0-32.0); Mean Corpuscular Hgb Conc. 33.8 g/dL (32.0-36.0); Mean Corpuscular Volume 91.1 fL (80.0-100.0); Monocytes # (auto) 0.7 10 ^3/uL (0-1.3); Monocytes % (auto) 8.4 % (0.0-12.0); Neutrophils # (auto) 5.6 10 ^3/uL (1.6-8.6); Neutrophils % (auto) 65.8 % (37.0-80.0); Nucleated Red Blood Cells % 0.1 %; Red Blood Cells 5.23 10^6/uL (4.5-5.90); Red Cell Distribution Width 14.1 % (11.8-14.3); White Blood Cell 8.4 10^3/uL (4.4-10.8)
[2020-11-13 23:47] LABS: INR 0.99 (0.9-1.15)
[2020-11-13 23:48] LABS: Albumin 4.1 g/dL (3.4-5.0); Calcium 8.7 mg/dL (8.5-10.1); Magnesium 2.4 mg/dL (1.6-2.6)
[2020-11-13 23:53] LABS: BUN/Creatinine Ratio 26.3; Bilirubin, Total 0.5 mg/dL (0.2-1.0); Total Protein 7.5 g/dL (6.4-8.2)
[2020-11-14 00:31] LABS: Urine Bacteria FEW /hpf (None Seen); Urine Blood 3+ /uL (Negative); Urine Mucus FEW (None Seen); Urine WBC 330 /hpf (0 - 3); Urine WBC Clumps PRESENT /hpf (None Seen)
[2020-11-14] MEDS ORDERED: hydrALAZINE HCL 20 MG/ML VL IV PRN (02:45)
[2020-11-14] MEDS: MORPHINE SULF INJ 2 MG/ML SYRINGE 1ML IV PRN ×2 (03:19→08:46)
[2020-11-14] MEDS: ONDANSETRON HCL 4 MG/2 ML VIAL IV PRN ×2 (03:20→08:46)
[2020-11-14] MEDS: SODIUM CHLORIDE 0.9% 1,000 ML IV SCH ×2 (03:20→12:48)
[2020-11-14] MEDS: InsuLIN REG 1unit/0.01ml Soln (100units/ml) SC SCH ×2 (06:40→11:30)
[2020-11-14] MEDS: ACCU-CHEK COMFORT CURVE STRIP VI SCH ×2 (06:41→11:53)
[2020-11-14 07:04] LABS: Basophils # (auto) 0 10 ^3/uL (0-0.2); Basophils % (auto) 0.4 % (0.0-2.0); Eosinophils # (auto) 0.2 10 ^3/uL (0-0.8); Eosinophils % (auto) 2.8 % (0.0-7.0); Hemoglobin 15.4 g/dL (13.5-17.5); Lymphocytes # (auto) 1.9 10 ^3/uL (0.4-5.4); Lymphocytes % (auto) 26.6 % (10.0-50.0); Mean Corpuscular Hemoglobin 30.6 pg (28.0-32.0); Mean Corpuscular Hgb Conc. 33.6 g/dL (32.0-36.0); Mean Corpuscular Volume 91.3 fL (80.0-100.0); Monocytes # (auto) 0.9 10 ^3/uL (0-1.3); Monocytes % (auto) 12.3 % (0.0-12.0); Neutrophils # (auto) 4.2 10 ^3/uL (1.6-8.6); Neutrophils % (auto) 57.9 % (37.0-80.0); Nucleated Red Blood Cells % 0.1 %; Red Blood Cells 5.03 10^6/uL (4.5-5.90); Red Cell Distribution Width 14.5 % (11.8-14.3); White Blood Cell 7.2 10^3/uL (4.4-10.8)
[2020-11-14 07:23] LABS: Calcium 8.5 mg/dL (8.5-10.1); Potassium 4.4 mmol/L (3.5-5.1)
[2020-11-14 07:24] LABS: BUN/Creatinine Ratio 28.2
[2020-11-14] MEDS ORDERED: OLANZapine 5 MG TAB PO SCH (10:00)
[2020-11-14 13:00] VITALS: BP 113/70
== END 2020-11-14 13:35 | disposition home or self-care (01) | DRG 501 ==
LOC: ER 21:40 → OVERFLOW 21:50 → UNDOADMIN 11-14 03:08 → UNDODISIN 11-14 13:31 → OVERFLOW 11-14 13:31
PROVIDERS: ADMIT Hospitalist; ATTEND Hospitalist
DX: N40.1 Benign prostatic hyperplasia with lower urinary tract symptoms (principal); F20.9 Schizophrenia, unspecified; R31.0 Gross hematuria; F17.210 Nicotine dependence, cigarettes, uncomplicated; F31.9 Bipolar disorder, unspecified; I12.9 Hypertensive chronic kidney disease with stage 1 through stage 4 chronic kidney disease, or unspecified chronic kidney disease; N18.9 Chronic kidney disease, unspecified; G62.9 Polyneuropathy, unspecified; Z20.822 Contact with and (suspected) exposure to COVID-19; G43.909 Migraine, unspecified, not intractable, without status migrainosus; N42.0 Calculus of prostate; K21.9 Gastro-esophageal reflux disease without esophagitis; Z59.0 Homelessness; Z87.442 Personal history of urinary calculi; Z88.2 Allergy status to sulfonamides; Z88.1 Allergy status to other antibiotic agents; Z91.010 Allergy to peanuts; Z88.0 Allergy status to penicillin; Z91.013 Allergy to seafood; Z71.6 Tobacco abuse counseling
CPT/HCPCS: 36415; 80048; 80053; 81001; 82962; 83735; 85025; 85610; 87426; 96374; 96375; G0378; J2405

== ENCOUNTER 2020-11-17 23:01 | Emergency (ER) | payer MEDICAID ==
[~2020-11-17] VITALS: Ht 177.8 cm; Wt 68.0 kg
[2020-11-18 01:08] LABS: Urine Bacteria FEW /hpf (None Seen); Urine Blood 3+ /uL (Negative); Urine Hyaline Cast FEW /lpf (0 - 2); Urine Mucus FEW (None Seen); Urine Specific Gravity 1.023 (1.001-1.035); Urine Sperm PRESENT /hpf (None Seen); Urine WBC 14 /hpf (0 - 3)
[2020-11-18 03:12] VITALS: BP 133/82
[2020-11-18] MEDS ORDERED: CIPROFLOXACIN HCL 500 MG TAB PO ONE (03:45)
[2020-11-18] MEDS ORDERED: KETOROLAC TROMETH 30 MG/ML 1ML VIAL IV ONE (03:45)
[2020-11-18] MEDS ORDERED: levoFLOXacin 500 MG TAB PO ONE (03:45)
== END 2020-11-18 03:51 | disposition home or self-care (01) ==
LOC: EDBD 23:01 → ER 23:01
DX: N39.0 Urinary tract infection, site not specified (principal); I10 Essential (primary) hypertension; F17.210 Nicotine dependence, cigarettes, uncomplicated; Z88.2 Allergy status to sulfonamides; Z88.1 Allergy status to other antibiotic agents; Z91.013 Allergy to seafood; Z88.0 Allergy status to penicillin; Z91.010 Allergy to peanuts; Z79.82 Long term (current) use of aspirin; Z79.899 Other long term (current) drug therapy; Z87.442 Personal history of urinary calculi
CPT/HCPCS: 81001; 82962

== ENCOUNTER 2020-11-23 03:18 | Emergency (ER) | payer MEDICAID ==
[~2020-11-23] VITALS: Ht 175.3 cm; Wt 68.0 kg
[2020-11-23] MEDS ORDERED: MORPHINE SULF INJ 2 MG/ML SYRINGE 1ML IV ONE (04:15)
[2020-11-23] MEDS ORDERED: LIDOCAINE 2% JELLY 11ml (GLYDO) UR ONE (04:15)
[2020-11-23 05:23] VITALS: BP 147/77
[2020-11-23 05:40] LABS: Urine Amorphous Crystal FEW /hpf (None Seen); Urine Bacteria FEW /hpf (None Seen); Urine Blood 2+ /uL (Negative); Urine Mucus FEW (None Seen); Urine WBC 11 /hpf (0 - 3)
== END 2020-11-23 05:46 | disposition home or self-care (01) ==
LOC: ER 03:18 → EDBD 03:18 → ER 05:45
DX: T83.011A Breakdown (mechanical) of indwelling urethral catheter, initial encounter (principal); I10 Essential (primary) hypertension; F17.210 Nicotine dependence, cigarettes, uncomplicated; Z87.442 Personal history of urinary calculi; Z59.0 Homelessness; Z88.2 Allergy status to sulfonamides; Z91.010 Allergy to peanuts; Z88.0 Allergy status to penicillin; Z91.013 Allergy to seafood
CPT/HCPCS: 81001; 87086; 96374; 99283; J2270

== ENCOUNTER 2020-11-25 03:08 | Emergency (ER) | payer MEDICAID ==
[~2020-11-25] VITALS: Ht 175.3 cm; Wt 72.6 kg
[~2020-11-25 03:08] MED LIST changes: -ASPI-231; +ASPI1TAB20
[2020-11-25 04:08] VITALS: BP 146/72
[2020-11-25] MEDS ORDERED: PANTOPRAZOLE 40 MG TAB PO ONE (05:30)
== END 2020-11-25 06:54 | disposition home or self-care (01) ==
LOC: ER 03:08 → EDBD 03:08 → ER 06:54
DX: K29.70 Gastritis, unspecified, without bleeding (principal); I10 Essential (primary) hypertension; F17.210 Nicotine dependence, cigarettes, uncomplicated; Z79.82 Long term (current) use of aspirin; Z79.899 Other long term (current) drug therapy; Z88.0 Allergy status to penicillin; Z88.1 Allergy status to other antibiotic agents; Z88.2 Allergy status to sulfonamides; Z91.013 Allergy to seafood; Z91.010 Allergy to peanuts

== ENCOUNTER 2020-12-19 16:14 | Emergency (ER) | payer MEDICAID ==
[~2020-12-19] VITALS: Ht 172.7 cm; Wt 65.8 kg
[~2020-12-19 16:14] MED LIST changes: +ASPI-231; -ASPI1TAB20
[2020-12-19 18:02] LABS: Basophils # (auto) 0.1 10 ^3/uL (0-0.2); Basophils % (auto) 1.1 % (0.0-2.0); Eosinophils # (auto) 0.3 10 ^3/uL (0-0.8); Eosinophils % (auto) 3.4 % (0.0-7.0); Hematocrit 47.1 % (41.0-53.0); Hemoglobin 16.1 g/dL (13.5-17.5); Lymphocytes # (auto) 1.9 10 ^3/uL (0.4-5.4); Lymphocytes % (auto) 25.1 % (10.0-50.0); Mean Corpuscular Hemoglobin 31.4 pg (28.0-32.0); Mean Corpuscular Hgb Conc. 34.3 g/dL (32.0-36.0); Mean Corpuscular Volume 91.6 fL (80.0-100.0); Monocytes # (auto) 0.9 10 ^3/uL (0-1.3); Monocytes % (auto) 11.3 % (0.0-12.0); Neutrophils # (auto) 4.4 10 ^3/uL (1.6-8.6); Neutrophils % (auto) 59.1 % (37.0-80.0); Nucleated Red Blood Cells % 0.1 %; Platelet Count (auto) 302 10^3/uL (140-450); Red Blood Cells 5.14 10^6/uL (4.5-5.90); Red Cell Distribution Width 14.1 % (11.8-14.3); White Blood Cell 7.5 10^3/uL (4.4-10.8)
[2020-12-19 18:19] LABS: Albumin 3.5 g/dL (3.4-5.0); Calcium 7.8 mg/dL (8.5-10.1); Potassium 3.8 mmol/L (3.5-5.1)
[2020-12-19 18:22] LABS: BUN/Creatinine Ratio 23.4; Bilirubin, Total 0.3 mg/dL (0.2-1.0); Total Protein 6.6 g/dL (6.4-8.2)
[2020-12-19 19:19] VITALS: BP 130/76
== END 2020-12-19 19:26 | disposition home or self-care (01) ==
LOC: ER 16:14 → EDBD 16:14 → EDUNIT# 16:14 → ER 19:26
DX: R10.9 Unspecified abdominal pain (principal); F20.9 Schizophrenia, unspecified; R11.0 Nausea; R30.0 Dysuria; F17.210 Nicotine dependence, cigarettes, uncomplicated; E11.9 Type 2 diabetes mellitus without complications; I10 Essential (primary) hypertension; Z87.442 Personal history of urinary calculi; Z79.899 Other long term (current) drug therapy; Z79.82 Long term (current) use of aspirin; Z88.0 Allergy status to penicillin; Z91.010 Allergy to peanuts; Z88.2 Allergy status to sulfonamides; Z88.1 Allergy status to other antibiotic agents; Z91.013 Allergy to seafood
CPT/HCPCS: 36415; 74176; 80053; 85025

== ENCOUNTER 2021-01-13 17:41 | Emergency (ER) | payer MEDICAID ==
[~2021-01-13] VITALS: Ht 172.7 cm; Wt 68.0 kg
[2021-01-13] MEDS ORDERED: TETANUS-DIPTH-ACEL PERTUSSIS 0.5ML SYR Tdap IM ONE (19:30)
[2021-01-13] MEDS ORDERED: MORPHINE SULF INJ 2 MG/ML SYRINGE 1ML IV ONE (19:30)
[2021-01-13] MEDS ORDERED: CEFTRIAXONE SODIUM 2 GM in D5W 5% 50 ML IV ONE (19:30)
[2021-01-13] MEDS ORDERED: SODIUM CHLORIDE 0.9% 1,000 ML IV ONE (19:30)
[2021-01-13] MEDS ORDERED: ONDANSETRON HCL 4 MG/2 ML VIAL IV ONE (19:30)
[2021-01-13] MEDS ORDERED: ONDANSETRON HCL 4 MG/2 ML VIAL ONE (20:08)
[2021-01-13] MEDS ORDERED: levETIRAcetam 500 MG/5ML INJ IV ONE (20:09)
[2021-01-13] MEDS ORDERED: cefTRIAXone 1GM/50ML D5W 50 ML IV ONE (20:11)
[2021-01-13] MEDS ORDERED: cefTRIAXone SOD 1,000 MG VL ONE (20:11)
[2021-01-13 20:12] LABS: Basophils # (auto) 0.1 10 ^3/uL (0-0.2); Basophils % (auto) 0.4 % (0.0-2.0); Eosinophils # (auto) 0.1 10 ^3/uL (0-0.8); Eosinophils % (auto) 0.4 % (0.0-7.0); Hematocrit 52.9 % (41.0-53.0); Hemoglobin 17.3 g/dL (13.5-17.5); Lymphocytes # (auto) 1.5 10 ^3/uL (0.4-5.4); Lymphocytes % (auto) 10.4 % (10.0-50.0); Mean Corpuscular Hemoglobin 29.8 pg (28.0-32.0); Mean Corpuscular Hgb Conc. 32.7 g/dL (32.0-36.0); Mean Corpuscular Volume 91.1 fL (80.0-100.0); Monocytes # (auto) 0.9 10 ^3/uL (0-1.3); Neutrophils # (auto) 11.8 10 ^3/uL (1.6-8.6); Neutrophils % (auto) 82.8 % (37.0-80.0); Red Blood Cells 5.81 10^6/uL (4.5-5.90); White Blood Cell 14.2 10^3/uL (4.4-10.8)
[2021-01-13 20:25] LABS: Albumin 4.5 g/dL (3.4-5.0); Calcium 8.9 mg/dL (8.5-10.1); Potassium 3.9 mmol/L (3.5-5.1)
[2021-01-13 20:28] LABS: BUN/Creatinine Ratio 22.9; Bilirubin, Total 0.7 mg/dL (0.2-1.0); Total Protein 8.2 g/dL (6.4-8.2)
[2021-01-13 20:36] VITALS: BP 130/90
[2021-01-13 20:36] LABS: INR 0.97 (0.9-1.15); Partial Thromboplastin Time 23.6 sec (23.0-31.2)
== END 2021-01-13 20:58 | disposition short-term general hospital (02) ==
LOC: ER 17:41 → EDBD 17:41 → ER 20:58
DX: S02.19XA Other fracture of base of skull, initial encounter for closed fracture (principal); S06.2X0A Diffuse traumatic brain injury without loss of consciousness, initial encounter; S06.300A Unspecified focal traumatic brain injury without loss of consciousness, initial encounter; S01.81XA Laceration without foreign body of other part of head, initial encounter; Z20.822 Contact with and (suspected) exposure to COVID-19; Y04.2XXA Assault by strike against or bumped into by another person, initial encounter; Y93.89 Activity, other specified; Y92.89 Other specified places as the place of occurrence of the external cause; Y99.8 Other external cause status
CPT/HCPCS: 36415; 70450; 71045; 80053; 80320; 85025; 85610; 85730; 86850; 86900; 86901; 87040; 87426; 90471; 90715; 93005; 96365; 96368; 96375; 99291; J0696; J1953; J2270; J2405; J7030; J7060

== ENCOUNTER 2021-01-24 16:48 | Emergency (ER) | payer MEDICAID ==
[~2021-01-24] VITALS: Ht 175.3 cm; Wt 68.9 kg
[2021-01-24] MEDS ORDERED: ONDANSETRON HCL 4 MG/2 ML VIAL IV ONE (19:00)
[2021-01-24] MEDS ORDERED: ACETAMINOPHEN 325 MG TAB PO ONE (19:00)
[2021-01-24 20:54] LABS: Basophils # (auto) 0.1 10 ^3/uL (0-0.2)
[2021-01-24 20:55] LABS: Basophils % (auto) 0.5 % (0.0-2.0); Eosinophils # (auto) 0.1 10 ^3/uL (0-0.8); Eosinophils % (auto) 1.3 % (0.0-7.0); Hematocrit 42.9 % (41.0-53.0); Hemoglobin 14.4 g/dL (13.5-17.5); Lymphocytes # (auto) 1.9 10 ^3/uL (0.4-5.4); Lymphocytes % (auto) 19.5 % (10.0-50.0); Mean Corpuscular Hemoglobin 30.6 pg (28.0-32.0); Mean Corpuscular Hgb Conc. 33.6 g/dL (32.0-36.0); Mean Corpuscular Volume 91.2 fL (80.0-100.0); Monocytes # (auto) 1.1 10 ^3/uL (0-1.3); Monocytes % (auto) 10.5 % (0.0-12.0); Neutrophils # (auto) 6.8 10 ^3/uL (1.6-8.6); Neutrophils % (auto) 68.2 % (37.0-80.0); Nucleated Red Blood Cells % 0.1 %; Red Cell Distribution Width 14.1 % (11.8-14.3)
[2021-01-24 21:12] LABS: Albumin 3.6 g/dL (3.4-5.0); Anion Gap 6 (5-15); Blood Urea Nitrogen 21 mg/dL (7-18); Calcium 8.4 mg/dL (8.5-10.1); Carbon Dioxide 25 mmol/L (21-32); Chloride 107 mmol/L (98-107); Magnesium 2.4 mg/dL (1.6-2.6); Potassium 4.2 mmol/L (3.5-5.1); Sodium 138 mmol/L (136-145)
[2021-01-24 21:15] LABS: Alanine Aminotransferase 129 U/L (16-61); Aspartate Aminotransferase 53 U/L (15-37); GFR African American 155 mL/min; GFR Non-African American 128 mL/min; Glucose 91 mg/dL (74-106)
[2021-01-24 21:18] LABS: Alkaline Phosphatase 106 U/L (45-117); Bilirubin, Total < 0.1 mg/dL (0.2-1.0); Total Protein 7.2 g/dL (6.4-8.2)
[2021-01-24 23:01] VITALS: BP 126/77
== END 2021-01-24 23:06 | disposition home or self-care (01) ==
LOC: ER 16:48 → EDBD 16:48 → ER 23:06
DX: S02.19XD Other fracture of base of skull, subsequent encounter for fracture with routine healing (principal); G93.89 Other specified disorders of brain; E11.9 Type 2 diabetes mellitus without complications; I10 Essential (primary) hypertension; F20.9 Schizophrenia, unspecified; F32.9 Major depressive disorder, single episode, unspecified; F17.210 Nicotine dependence, cigarettes, uncomplicated; Z87.442 Personal history of urinary calculi; Y08.89XD Assault by other specified means, subsequent encounter
CPT/HCPCS: 36415; 70450; 80053; 83735; 85025; 96374; 99284; J2405

== ENCOUNTER 2021-01-30 23:11 | Emergency (ER) | payer MEDICAID ==
[~2021-01-30] VITALS: Ht 175.3 cm; Wt 68.9 kg
[2021-01-31 00:02] VITALS: BP 132/82
== END 2021-01-31 03:01 | disposition left against medical advice (07) ==
LOC: ER 23:11 → EDBD 23:11 → ER 01-31 03:01
DX: R51.9 Headache, unspecified (principal); R11.2 Nausea with vomiting, unspecified; H93.13 Tinnitus, bilateral; Z53.21 Procedure and treatment not carried out due to patient leaving prior to being seen by health care provider

== ENCOUNTER 2021-02-11 02:59 | Emergency (ER) | payer MEDICAID ==
[~2021-02-11] VITALS: Ht 177.8 cm; Wt 77.1 kg
[2021-02-11 04:11] LABS: Basophils # (auto) 0.1 10 ^3/uL (0-0.2); Basophils % (auto) 0.6 % (0.0-2.0); Eosinophils # (auto) 0.1 10 ^3/uL (0-0.8); Eosinophils % (auto) 1.7 % (0.0-7.0); Hematocrit 49.2 % (41.0-53.0); Hemoglobin 16.8 g/dL (13.5-17.5); Lymphocytes # (auto) 2.1 10 ^3/uL (0.4-5.4); Lymphocytes % (auto) 26.5 % (10.0-50.0); Mean Corpuscular Hemoglobin 31.2 pg (28.0-32.0); Mean Corpuscular Hgb Conc. 34.1 g/dL (32.0-36.0); Mean Corpuscular Volume 91.5 fL (80.0-100.0); Monocytes # (auto) 0.9 10 ^3/uL (0-1.3); Monocytes % (auto) 10.8 % (0.0-12.0); Neutrophils # (auto) 4.9 10 ^3/uL (1.6-8.6); Neutrophils % (auto) 60.4 % (37.0-80.0); Nucleated Red Blood Cells % 0.1 %; Red Blood Cells 5.37 10^6/uL (4.5-5.90); Red Cell Distribution Width 14.5 % (11.8-14.3)
[2021-02-11 04:31] LABS: Albumin 4.2 g/dL (3.4-5.0); Anion Gap 5 (5-15); Blood Urea Nitrogen 19 mg/dL (7-18); Calcium 9.1 mg/dL (8.5-10.1); Carbon Dioxide 28 mmol/L (21-32); Chloride 105 mmol/L (98-107); Potassium 4.5 mmol/L (3.5-5.1); Sodium 138 mmol/L (136-145)
[2021-02-11 04:34] LABS: Aspartate Aminotransferase 25 U/L (15-37); BUN/Creatinine Ratio 26.4; GFR African American 150 mL/min; GFR Non-African American 124 mL/min; Glucose 112 mg/dL (74-106)
[2021-02-11 04:44] LABS: Alanine Aminotransferase 46 U/L (16-61); Alkaline Phosphatase 101 U/L (45-117); Bilirubin, Total 0.2 mg/dL (0.2-1.0); Total Protein 7.9 g/dL (6.4-8.2)
[2021-02-11] MEDS ORDERED: ONDANSETRON HCL 4 MG/2 ML VIAL IV ONE (15:15)
[2021-02-11] MEDS ORDERED: ONDANSETRON ODT 4 MG TAB PO ONE (15:30)
[2021-02-11 17:20] VITALS: BP 142/88
== END 2021-02-11 17:21 | disposition home or self-care (01) ==
LOC: EDBD 02:59 → ER 02:59
DX: S02.19XA Other fracture of base of skull, initial encounter for closed fracture (principal); S09.8XXA Other specified injuries of head, initial encounter; R42 Dizziness and giddiness; R51.9 Headache, unspecified; E11.9 Type 2 diabetes mellitus without complications; I10 Essential (primary) hypertension; F20.9 Schizophrenia, unspecified; F17.210 Nicotine dependence, cigarettes, uncomplicated; Z87.442 Personal history of urinary calculi; X58.XXXA Exposure to other specified factors, initial encounter; Y93.89 Activity, other specified; Y92.89 Other specified places as the place of occurrence of the external cause; Y99.8 Other external cause status
CPT/HCPCS: 36415; 70450; 80053; 84484; 85025; 93005; 99285; Q0162

== ENCOUNTER 2021-02-23 15:21 | Emergency (ER) | payer MEDICAID ==
[~2021-02-23] VITALS: Ht 175.3 cm; Wt 68.9 kg
[2021-02-23 15:21] VITALS: BP 124/69
== END 2021-02-23 19:04 | disposition left against medical advice (07) ==
LOC: ER 15:21
DX: N20.0 Calculus of kidney (principal); Z53.21 Procedure and treatment not carried out due to patient leaving prior to being seen by health care provider

== ENCOUNTER 2021-02-27 22:53 | Emergency (ER) | payer MEDICAID ==
[~2021-02-27] VITALS: Ht 177.8 cm; Wt 68.0 kg
[~2021-02-27 22:53] MED LIST changes: -ASPI-231; +ASPI1TAB20
[2021-02-28 04:31] LABS: Basophils # (auto) 0 10 ^3/uL (0-0.2); Eosinophils # (auto) 0.1 10 ^3/uL (0-0.8); Monocytes # (auto) 0.8 10 ^3/uL (0-1.3); Neutrophils # (auto) 5.7 10 ^3/uL (1.6-8.6); White Blood Cell 8.7 10^3/uL (4.4-10.8)
[2021-02-28 04:33] LABS: Basophils % (auto) 0.6 % (0.0-2.0); Eosinophils % (auto) 0.9 % (0.0-7.0); Hematocrit 51.7 % (41.0-53.0); Hemoglobin 17.8 g/dL (13.5-17.5); Lymphocytes # (auto) 2.2 10 ^3/uL (0.4-5.4); Lymphocytes % (auto) 24.7 % (10.0-50.0); Mean Corpuscular Hemoglobin 31.3 pg (28.0-32.0); Mean Corpuscular Hgb Conc. 34.3 g/dL (32.0-36.0); Mean Corpuscular Volume 91.1 fL (80.0-100.0); Monocytes % (auto) 8.7 % (0.0-12.0); Neutrophils % (auto) 65.1 % (37.0-80.0); Nucleated Red Blood Cells % 0.1 %; Red Blood Cells 5.68 10^6/uL (4.5-5.90); Red Cell Distribution Width 13.9 % (11.8-14.3)
[2021-02-28 04:40] LABS: Albumin 4.4 g/dL (3.4-5.0); Calcium 9.2 mg/dL (8.5-10.1); Potassium 4.3 mmol/L (3.5-5.1)
[2021-02-28 04:42] LABS: BUN/Creatinine Ratio 21.3
[2021-02-28 04:45] LABS: Bilirubin, Total 0.7 mg/dL (0.2-1.0); Total Protein 8.4 g/dL (6.4-8.2)
[2021-02-28 05:35] LABS: Urine Bacteria NONE SEEN /hpf (None Seen); Urine Blood 1+ /uL (Negative); Urine Mucus FEW (None Seen); Urine Specific Gravity 1.027 (1.001-1.035); Urine WBC 4 /hpf (0 - 3)
[2021-02-28] MEDS ORDERED: cefTRIAXone 1GM/50ML D5W 50 ML IV ONE (07:15)
[2021-02-28 07:41] LABS: Magnesium 2.8 mg/dL (1.6-2.6)
[2021-02-28] MEDS ORDERED: SODIUM CHLORIDE 0.9% 1,000 ML IV ONE (08:15)
[2021-02-28 10:08] VITALS: BP 140/84
== END 2021-02-28 10:11 | disposition home or self-care (01) ==
LOC: ER 22:53 → EDBD 22:53 → ER 02-28 10:11
DX: R10.9 Unspecified abdominal pain (principal); F17.210 Nicotine dependence, cigarettes, uncomplicated; E11.9 Type 2 diabetes mellitus without complications; I10 Essential (primary) hypertension; Z79.899 Other long term (current) drug therapy; Z88.1 Allergy status to other antibiotic agents; Z88.8 Allergy status to other drugs, medicaments and biological substances; Z91.013 Allergy to seafood; Z91.010 Allergy to peanuts
CPT/HCPCS: 36415; 74176; 80053; 81001; 83690; 83735; 85025; 96365; 99284; J0696; J7030

== ENCOUNTER 2021-04-09 19:26 | Emergency (ER) | payer MEDICAID ==
[~2021-04-09] VITALS: Ht 175.3 cm; Wt 68.0 kg
[2021-04-10 02:47] VITALS: BP 124/80
== END 2021-04-10 03:51 | disposition home or self-care (01) ==
LOC: EDBD 19:26 → ER 19:28
DX: T63.391A Toxic effect of venom of other spider, accidental (unintentional), initial encounter (principal); L08.9 Local infection of the skin and subcutaneous tissue, unspecified; L02.413 Cutaneous abscess of right upper limb; E11.9 Type 2 diabetes mellitus without complications; I10 Essential (primary) hypertension; F20.9 Schizophrenia, unspecified; F17.210 Nicotine dependence, cigarettes, uncomplicated; Z88.2 Allergy status to sulfonamides; Z88.1 Allergy status to other antibiotic agents; Z91.013 Allergy to seafood; Z91.010 Allergy to peanuts; Z88.0 Allergy status to penicillin; Z79.899 Other long term (current) drug therapy; Z79.82 Long term (current) use of aspirin; Z86.73 Personal history of transient ischemic attack (TIA), and cerebral infarction without residual deficits; Z87.442 Personal history of urinary calculi; Y92.89 Other specified places as the place of occurrence of the external cause

== ENCOUNTER 2021-04-20 00:10 | Emergency (ER) | payer MEDICAID ==
[~2021-04-20] VITALS: Ht 175.3 cm; Wt 68.0 kg
[2021-04-20 04:25] VITALS: BP 125/82
== END 2021-04-20 04:38 | disposition home or self-care (01) ==
LOC: EDBD 00:10 → ER 00:10
DX: S46.911A Strain of unspecified muscle, fascia and tendon at shoulder and upper arm level, right arm, initial encounter (principal); I10 Essential (primary) hypertension; E11.9 Type 2 diabetes mellitus without complications; E78.5 Hyperlipidemia, unspecified; F17.210 Nicotine dependence, cigarettes, uncomplicated; Z86.73 Personal history of transient ischemic attack (TIA), and cerebral infarction without residual deficits; Z79.82 Long term (current) use of aspirin; Z79.899 Other long term (current) drug therapy; Z88.0 Allergy status to penicillin; Z88.2 Allergy status to sulfonamides; Z88.8 Allergy status to other drugs, medicaments and biological substances; Z88.1 Allergy status to other antibiotic agents; Z91.013 Allergy to seafood; Z91.010 Allergy to peanuts; V29.9XXA Motorcycle rider (driver) (passenger) injured in unspecified traffic accident, initial encounter; Y93.89 Activity, other specified; Y92.89 Other specified places as the place of occurrence of the external cause; Y99.8 Other external cause status
CPT/HCPCS: 73090; 73110; 73130

== ENCOUNTER 2021-05-04 22:33 | Emergency (ER) | payer MEDICAID ==
[~2021-05-04] VITALS: Ht 177.8 cm; Wt 77.1 kg
[2021-05-04 23:30] VITALS: BP 130/132
== END 2021-05-05 13:16 | disposition home or self-care (01) ==
LOC: EDBD 22:33 → ER 22:33
DX: S93.402A Sprain of unspecified ligament of left ankle, initial encounter (principal); E78.5 Hyperlipidemia, unspecified; I10 Essential (primary) hypertension; F17.210 Nicotine dependence, cigarettes, uncomplicated; E11.9 Type 2 diabetes mellitus without complications; Z86.73 Personal history of transient ischemic attack (TIA), and cerebral infarction without residual deficits; Z88.0 Allergy status to penicillin; Z91.013 Allergy to seafood; Z88.2 Allergy status to sulfonamides; Z88.1 Allergy status to other antibiotic agents; W10.8XXA Fall (on) (from) other stairs and steps, initial encounter; Y93.89 Activity, other specified; Y92.89 Other specified places as the place of occurrence of the external cause; Y99.8 Other external cause status
CPT/HCPCS: 73100; 73600; 73630

== ENCOUNTER 2021-05-19 16:57 | Emergency (ER) | payer MEDICAID ==
[~2021-05-19] VITALS: Ht 182.9 cm; Wt 68.0 kg
[2021-05-19 19:51] VITALS: BP 137/93
[2021-05-19 20:46] LABS: Urine Bacteria NONE SEEN /hpf (None Seen); Urine Blood 1+ /uL (Negative); Urine Specific Gravity 1.024 (1.001-1.035); Urine WBC 1 /hpf (0 - 3)
== END 2021-05-19 21:38 | disposition home or self-care (01) ==
LOC: ER 16:57 → EDBD 16:57 → ER 21:38
DX: S93.401A Sprain of unspecified ligament of right ankle, initial encounter (principal); N39.0 Urinary tract infection, site not specified; F17.210 Nicotine dependence, cigarettes, uncomplicated; E11.9 Type 2 diabetes mellitus without complications; I10 Essential (primary) hypertension; E78.5 Hyperlipidemia, unspecified; Z86.73 Personal history of transient ischemic attack (TIA), and cerebral infarction without residual deficits; Z88.2 Allergy status to sulfonamides; Z88.1 Allergy status to other antibiotic agents; Z91.013 Allergy to seafood; Z91.010 Allergy to peanuts; X50.9XXA Other and unspecified overexertion or strenuous movements or postures, initial encounter; Y93.89 Activity, other specified; Y92.89 Other specified places as the place of occurrence of the external cause; Y99.8 Other external cause status
CPT/HCPCS: 81001

== ENCOUNTER 2021-05-24 19:59 | Emergency (ER) | payer MEDICAID ==
[~2021-05-24] VITALS: Ht 177.8 cm; Wt 81.6 kg
[2021-05-24] MEDS ORDERED: SODIUM CHLORIDE 0.9% 1,000 ML IVB ONE (20:45)
[2021-05-24] MEDS ORDERED: KETOROLAC TROMETH 30 MG/ML 1ML VIAL IV ONE (20:45)
[2021-05-24 23:25] LABS: Basophils # (auto) 0.1 10 ^3/uL (0-0.2); Basophils % (auto) 0.9 % (0.0-2.0); Eosinophils # (auto) 0.2 10 ^3/uL (0-0.8); Eosinophils % (auto) 1.6 % (0.0-7.0); Hematocrit 51.8 % (41.0-53.0); Lymphocytes # (auto) 2.3 10 ^3/uL (0.4-5.4); Lymphocytes % (auto) 23.4 % (10.0-50.0); Mean Corpuscular Hemoglobin 29.9 pg (28.0-32.0); Mean Corpuscular Hgb Conc. 32.7 g/dL (32.0-36.0); Mean Corpuscular Volume 91.3 fL (80.0-100.0); Monocytes # (auto) 0.9 10 ^3/uL (0-1.3); Monocytes % (auto) 8.9 % (0.0-12.0); Neutrophils # (auto) 6.5 10 ^3/uL (1.6-8.6); Neutrophils % (auto) 65.2 % (37.0-80.0); Red Blood Cells 5.67 10^6/uL (4.5-5.90); Red Cell Distribution Width 14.1 % (11.8-14.3); White Blood Cell 9.9 10^3/uL (4.4-10.8)
[2021-05-24 23:47] LABS: Albumin 3.6 g/dL (3.4-5.0); Calcium 9.1 mg/dL (8.5-10.1); Magnesium 2.5 mg/dL (1.6-2.6); Potassium 4.7 mmol/L (3.5-5.1)
[2021-05-24 23:50] LABS: BUN/Creatinine Ratio 32.9; Bilirubin, Total 0.3 mg/dL (0.2-1.0); Total Protein 6.8 g/dL (6.4-8.2)
[2021-05-25 03:03] LABS: Urine Bacteria NONE SEEN /hpf (None Seen); Urine Blood 1+ /uL (Negative); Urine Mucus FEW (None Seen); Urine Specific Gravity 1.031 (1.001-1.035); Urine WBC 2 /hpf (0 - 3)
[2021-05-25 03:30] VITALS: BP 136/91
== END 2021-05-25 03:32 | disposition home or self-care (01) ==
LOC: ER 19:59 → EDBD 19:59 → ER 05-25 03:32
DX: R10.9 Unspecified abdominal pain (principal); R35.0 Frequency of micturition; I10 Essential (primary) hypertension; E11.9 Type 2 diabetes mellitus without complications; E78.5 Hyperlipidemia, unspecified; F17.210 Nicotine dependence, cigarettes, uncomplicated; Z79.82 Long term (current) use of aspirin; Z79.899 Other long term (current) drug therapy; Z88.1 Allergy status to other antibiotic agents; Z88.0 Allergy status to penicillin; Z88.2 Allergy status to sulfonamides; Z91.010 Allergy to peanuts; Z91.013 Allergy to seafood
CPT/HCPCS: 36415; 74176; 80053; 81001; 83735; 85025

== ENCOUNTER 2021-08-23 06:18 | Emergency (ER) | payer MEDICAID ==
[~2021-08-23] VITALS: Ht 172.7 cm; Wt 72.6 kg
[2021-08-23 07:31] VITALS: BP 164/90
[2021-08-23] MEDS ORDERED: BACL10TA PO (07:39)
[2021-08-23] MEDS ORDERED: IBUP800T27 PO (07:39)
[2021-08-23] MEDS ORDERED: KETOROLAC TROMETH 60MG/2ML VIAL IM ONE (07:45)
[2021-08-23] MEDS ORDERED: TRAM-297 PO (07:50)
[2021-08-23] MEDS ORDERED: ACET-1080 PO (07:53)
== END 2021-08-23 08:01 | disposition home or self-care (01) ==
LOC: EDBD 06:18 → ER 06:18
DX: S39.012A Strain of muscle, fascia and tendon of lower back, initial encounter (principal); M51.35 Other intervertebral disc degeneration, thoracolumbar region; F17.210 Nicotine dependence, cigarettes, uncomplicated; E11.9 Type 2 diabetes mellitus without complications; E78.5 Hyperlipidemia, unspecified; Z86.73 Personal history of transient ischemic attack (TIA), and cerebral infarction without residual deficits; Z87.442 Personal history of urinary calculi; X50.1XXA Overexertion from prolonged static or awkward postures, initial encounter; Y93.89 Activity, other specified; Y92.89 Other specified places as the place of occurrence of the external cause; Y99.8 Other external cause status
CPT/HCPCS: 72100; 96372; 99283; J1885

== ENCOUNTER 2021-10-14 18:12 | Emergency (ER) | payer MEDICAID ==
[~2021-10-14] VITALS: Ht 172.7 cm; Wt 72.6 kg
[~2021-10-14 18:12] MED LIST changes: +ACET-1080 PO; +BACL10TA PO
[2021-10-15 01:34] LABS: Basophils # (auto) 0 10 ^3/uL (0-0.2); Basophils % (auto) 0.4 % (0.0-2.0); Eosinophils # (auto) 0.1 10 ^3/uL (0-0.8); Eosinophils % (auto) 1.6 % (0.0-7.0); Hematocrit 48.9 % (41.0-53.0); Hemoglobin 16.5 g/dL (13.5-17.5); Lymphocytes # (auto) 2.8 10 ^3/uL (0.4-5.4); Lymphocytes % (auto) 39.9 % (10.0-50.0); Mean Corpuscular Hgb Conc. 33.7 g/dL (32.0-36.0); Mean Corpuscular Volume 91.9 fL (80.0-100.0); Monocytes % (auto) 14.3 % (0.0-12.0); Neutrophils # (auto) 3.1 10 ^3/uL (1.6-8.6); Neutrophils % (auto) 43.8 % (37.0-80.0); Nucleated Red Blood Cells % 0.1 %; Red Blood Cells 5.32 10^6/uL (4.5-5.90); Red Cell Distribution Width 14.2 % (11.8-14.3); White Blood Cell 7.1 10^3/uL (4.4-10.8)
[2021-10-15 01:55] LABS: Albumin 3.5 g/dL (3.4-5.0); BUN/Creatinine Ratio 20.5; Calcium 8.6 mg/dL (8.5-10.1); Potassium 4.5 mmol/L (3.5-5.1)
[2021-10-15 01:57] LABS: Bilirubin, Total 0.8 mg/dL (0.2-1.0); Total Protein 6.4 g/dL (6.4-8.2)
[2021-10-15 07:30] VITALS: BP 111/78
[2021-10-15 08:40] LABS: Amphetamine Screen, Urine POSITIVE (NEGATIVE); Barbiturate Scree,Urine NEGATIVE (NEGATIVE); Benzodiazephine Screen, Urine NEGATIVE (NEGATIVE); Cannabinoid Screen, Urine NEGATIVE (NEGATIVE); Cocaine Screen, Urine NEGATIVE (NEGATIVE); Opiate Scree,Urine NEGATIVE (NEGATIVE); Phencyclidine Screen, Urine NEGATIVE (NEGATIVE)
== END 2021-10-15 08:14 | disposition home or self-care (01) ==
LOC: EDBD 18:12 → ER 18:12
DX: T40.2X1A Poisoning by other opioids, accidental (unintentional), initial encounter (principal); G93.40 Encephalopathy, unspecified; I10 Essential (primary) hypertension; E11.9 Type 2 diabetes mellitus without complications; E78.5 Hyperlipidemia, unspecified; F17.210 Nicotine dependence, cigarettes, uncomplicated; Z86.73 Personal history of transient ischemic attack (TIA), and cerebral infarction without residual deficits; Z79.82 Long term (current) use of aspirin; Z79.899 Other long term (current) drug therapy; Z88.0 Allergy status to penicillin; Z88.1 Allergy status to other antibiotic agents; Z88.2 Allergy status to sulfonamides; Z91.013 Allergy to seafood; Z91.010 Allergy to peanuts; Y92.89 Other specified places as the place of occurrence of the external cause
CPT/HCPCS: 36415; 80053; 80307; 80320; 85025; 93005

== ENCOUNTER 2021-12-18 18:40 | Emergency (ER) | payer MEDICAID ==
[~2021-12-18] VITALS: Ht 175.3 cm; Wt 68.0 kg
[2021-12-18 20:33] LABS: Basophils # (auto) 0.2 10 ^3/uL (0-0.2); Basophils % (auto) 3.1 % (0.0-2.0); Eosinophils # (auto) 0.1 10 ^3/uL (0-0.8); Eosinophils % (auto) 0.8 % (0.0-7.0); Hematocrit 50.2 % (41.0-53.0); Hemoglobin 16.4 g/dL (13.5-17.5); Lymphocytes # (auto) 1.9 10 ^3/uL (0.4-5.4); Lymphocytes % (auto) 24.1 % (10.0-50.0); Mean Corpuscular Hemoglobin 29.7 pg (28.0-32.0); Mean Corpuscular Hgb Conc. 32.6 g/dL (32.0-36.0); Mean Corpuscular Volume 90.9 fL (80.0-100.0); Monocytes # (auto) 0.8 10 ^3/uL (0-1.3); Neutrophils # (auto) 4.9 10 ^3/uL (1.6-8.6); Nucleated Red Blood Cells % 0.1 %; Red Blood Cells 5.52 10^6/uL (4.5-5.90); Red Cell Distribution Width 13.8 % (11.8-14.3); White Blood Cell 7.9 10^3/uL (4.4-10.8)
[2021-12-18 20:50] LABS: Albumin 3.9 g/dL (3.4-5.0); BUN/Creatinine Ratio 18.1; Calcium 8.9 mg/dL (8.5-10.1); Potassium 3.9 mmol/L (3.5-5.1)
[2021-12-18 20:53] LABS: Bilirubin, Total 1.1 mg/dL (0.2-1.0); Total Protein 7.1 g/dL (6.4-8.2)
[2021-12-19 02:08] LABS: Urine Bacteria FEW /hpf (None Seen); Urine Blood 1+ /uL (Negative); Urine Mucus FEW (None Seen); Urine Specific Gravity 1.033 (1.001-1.035); Urine WBC 32 /hpf (0 - 3)
[2021-12-19 06:20] VITALS: BP 128/61
[2021-12-19] MEDS ORDERED: PERCOT PO (06:34)
== END 2021-12-19 07:20 | disposition home or self-care (01) ==
LOC: EDBD 18:40 → ER 18:40
DX: K80.20 Calculus of gallbladder without cholecystitis without obstruction (principal); E11.9 Type 2 diabetes mellitus without complications; E78.5 Hyperlipidemia, unspecified; F17.210 Nicotine dependence, cigarettes, uncomplicated; Z87.442 Personal history of urinary calculi; Z88.2 Allergy status to sulfonamides; Z88.1 Allergy status to other antibiotic agents; Z91.013 Allergy to seafood
CPT/HCPCS: 36415; 74176; 80053; 81001; 83690; 85025

== ENCOUNTER 2021-12-21 09:33 | Emergency (ER) | payer MEDICAID ==
[~2021-12-21] VITALS: Ht 172.7 cm; Wt 68.0 kg
[~2021-12-21 09:33] MED LIST changes: +PERCOT PO
[2021-12-21] MEDS ORDERED: PANTOPRAZOLE 40 MG/10 ML VIAL INJ IV ONE (12:30)
[2021-12-21] MEDS ORDERED: SODIUM CHLORIDE 0.9% 1,000 ML IVB ONE (12:30)
[2021-12-21] MEDS ORDERED: PROCHLORPERAZINE EDISYLATE 5 MG/ML 2ML VIAL IV ONE (12:30)
[2021-12-21 13:59] LABS: Albumin 3.7 g/dL (3.4-5.0); Calcium 8.3 mg/dL (8.5-10.1); Potassium 5.1 mmol/L (3.5-5.1)
[2021-12-21 14:03] LABS: BUN/Creatinine Ratio 21.1; Bilirubin, Total 0.7 mg/dL (0.2-1.0); Total Protein 7.5 g/dL (6.4-8.2)
[2021-12-21 14:06] LABS: Hematocrit 50.9 % (41.0-53.0); Hemoglobin 16.8 g/dL (13.5-17.5); Mean Corpuscular Hemoglobin 30.2 pg (28.0-32.0); Mean Corpuscular Hgb Conc. 33.1 g/dL (32.0-36.0); Mean Corpuscular Volume 91.3 fL (80.0-100.0); Red Blood Cells 5.57 10^6/uL (4.5-5.90); Red Cell Distribution Width 14.1 % (11.8-14.3); White Blood Cell 5.4 10^3/uL (4.4-10.8)
[2021-12-21 14:15] LABS: Basophils % (manual) 0 (0.0-2.0); Blast Cells 0; Eosinophils % (manual) 0 (0-7); Metamyelocytes % 0; Myelocytes % 0; Promyelocytes % 0; Reactive Lymphocytes 0
[2021-12-21 15:15] LABS: Band Neutrophils % (manual) 22; Lymphocytes % (manual) 11 (10.0-50.0)
[2021-12-21 15:16] LABS: Monocytes % (manual) 35 (0-12)
[2021-12-21] MEDS ORDERED: ONDA-144 PO (16:45)
[2021-12-21 16:58] VITALS: BP 132/78
== END 2021-12-21 17:25 | disposition home or self-care (01) ==
LOC: ER 09:33
DX: U07.1 COVID-19 (principal); B34.9 Viral infection, unspecified
CPT/HCPCS: 36415; 80053; 82150; 83690; 85007; 85027; 87426; 96361; 96374; 96375; 99284; C9113; J0780; J7030

== ENCOUNTER 2022-01-30 20:51 | Emergency (ER) | payer MEDICAID ==
[~2022-01-30] VITALS: Ht 175.3 cm; Wt 150.0 kg
[~2022-01-30 20:51] MED LIST changes: +ONDA-144 PO
[2022-01-31] MEDS ORDERED: KETOROLAC TROMETH 60MG/2ML VIAL IM ONE (07:30)
[2022-01-31 07:55] LABS: Urine Bacteria FEW /hpf (None Seen); Urine Blood Negative /uL (Negative); Urine Mucus FEW (None Seen); Urine Specific Gravity 1.034 (1.001-1.035); Urine WBC 6 /hpf (0 - 3)
[2022-01-31] MEDS ORDERED: CIPR-173 PO (08:10)
[2022-01-31] MEDS ORDERED: ACET-1080 PO (08:10)
[2022-01-31 08:24] VITALS: BP 124/70
== END 2022-01-31 08:29 | disposition home or self-care (01) ==
LOC: EDBD 20:51 → ER 20:51
DX: N39.0 Urinary tract infection, site not specified (principal); G89.29 Other chronic pain; M54.50 Low back pain, unspecified; I10 Essential (primary) hypertension; E11.9 Type 2 diabetes mellitus without complications; E78.5 Hyperlipidemia, unspecified; F17.210 Nicotine dependence, cigarettes, uncomplicated; Z86.73 Personal history of transient ischemic attack (TIA), and cerebral infarction without residual deficits; Z79.82 Long term (current) use of aspirin; Z79.899 Other long term (current) drug therapy; Z88.0 Allergy status to penicillin; Z88.1 Allergy status to other antibiotic agents; Z88.2 Allergy status to sulfonamides; Z91.010 Allergy to peanuts; Z91.013 Allergy to seafood
CPT/HCPCS: 81001; 96372; 99283; J1885

== ENCOUNTER 2022-02-17 12:55 | Emergency (ER) | payer MEDICAID ==
[~2022-02-17] VITALS: Ht 175.3 cm; Wt 71.0 kg
[~2022-02-17 12:55] MED LIST changes: +CIPR-173 PO
[2022-02-17] MEDS ORDERED: SODIUM CHLORIDE 0.9% 1,000 ML IVB ONE (13:15)
[2022-02-17 13:28] LABS: Basophils # (auto) 0 10 ^3/uL (0-0.2); Basophils % (auto) 0.4 % (0.0-2.0); Eosinophils # (auto) 0.1 10 ^3/uL (0-0.8); Hematocrit 42.2 % (41.0-53.0); Hemoglobin 13.9 g/dL (13.5-17.5); Lymphocytes # (auto) 2.2 10 ^3/uL (0.4-5.4); Lymphocytes % (auto) 36.4 % (10.0-50.0); Mean Corpuscular Hemoglobin 29.8 pg (28.0-32.0); Mean Corpuscular Hgb Conc. 32.9 g/dL (32.0-36.0); Mean Corpuscular Volume 90.7 fL (80.0-100.0); Monocytes # (auto) 0.7 10 ^3/uL (0-1.3); Monocytes % (auto) 11.6 % (0.0-12.0); Neutrophils % (auto) 49.6 % (37.0-80.0); Red Blood Cells 4.65 10^6/uL (4.5-5.90); Red Cell Distribution Width 14.4 % (11.8-14.3)
[2022-02-17 13:46] LABS: Albumin 3.4 g/dL (3.4-5.0); Calcium 8.3 mg/dL (8.5-10.1); Potassium 3.4 mmol/L (3.5-5.1)
[2022-02-17 13:49] LABS: BUN/Creatinine Ratio 18.1; Total Protein 6.2 g/dL (6.4-8.2)
[2022-02-17 15:44] VITALS: BP 132/73
== END 2022-02-17 15:50 | disposition home or self-care (01) ==
LOC: EDBD 12:55 → ER 12:59
DX: R55 Syncope and collapse (principal); S09.8XXA Other specified injuries of head, initial encounter; E11.9 Type 2 diabetes mellitus without complications; Z86.73 Personal history of transient ischemic attack (TIA), and cerebral infarction without residual deficits; Z88.2 Allergy status to sulfonamides; Z88.1 Allergy status to other antibiotic agents; Z91.013 Allergy to seafood; Z91.018 Allergy to other foods; W22.8XXA Striking against or struck by other objects, initial encounter; Y93.89 Activity, other specified; Y92.89 Other specified places as the place of occurrence of the external cause; Y99.8 Other external cause status
CPT/HCPCS: 36415; 70450; 80053; 80320; 85025; 93005; 96360; 99285; J7030

== ENCOUNTER 2022-03-04 15:28 | Emergency (ER) | payer MEDICAID ==
[~2022-03-04] VITALS: Ht 167.6 cm; Wt 72.7 kg
[2022-03-04 16:16] LABS: Basophils # (auto) 0.1 10 ^3/uL (0-0.2); Basophils % (auto) 0.8 % (0.0-2.0); Eosinophils # (auto) 0.2 10 ^3/uL (0-0.8); Eosinophils % (auto) 2.2 % (0.0-7.0); Hematocrit 49.6 % (41.0-53.0); Hemoglobin 16.1 g/dL (13.5-17.5); Lymphocytes # (auto) 2.5 10 ^3/uL (0.4-5.4); Lymphocytes % (auto) 29.5 % (10.0-50.0); Mean Corpuscular Hemoglobin 29.8 pg (28.0-32.0); Mean Corpuscular Hgb Conc. 32.4 g/dL (32.0-36.0); Mean Corpuscular Volume 91.8 fL (80.0-100.0); Monocytes # (auto) 0.7 10 ^3/uL (0-1.3); Monocytes % (auto) 8.9 % (0.0-12.0); Neutrophils # (auto) 4.9 10 ^3/uL (1.6-8.6); Neutrophils % (auto) 58.6 % (37.0-80.0); Nucleated Red Blood Cells % 0.1 %; Red Cell Distribution Width 14.9 % (11.8-14.3); White Blood Cell 8.4 10^3/uL (4.4-10.8)
[2022-03-04 16:33] LABS: Albumin 3.4 g/dL (3.4-5.0); Calcium 8.7 mg/dL (8.5-10.1); Potassium 3.7 mmol/L (3.5-5.1)
[2022-03-04 16:37] LABS: BUN/Creatinine Ratio 9.5; Bilirubin, Total 0.5 mg/dL (0.2-1.0); Total Protein 6.3 g/dL (6.4-8.2)
[2022-03-04 17:23] LABS: Urine Bacteria NONE SEEN /hpf (None Seen); Urine Blood 1+ /uL (Negative); Urine Mucus FEW (None Seen); Urine Specific Gravity 1.019 (1.001-1.035); Urine WBC 3 /hpf (0 - 3)
[2022-03-04] MEDS ORDERED: NITR-87 PO (20:42)
[2022-03-04] MEDS ORDERED: OXYCODONE W/ ACETAMINOPHEN 5/325MG TABLET PO ONE (20:45)
[2022-03-04] MEDS ORDERED: NITROFURANTOIN 100 mg CAP PO ONE (20:45)
[2022-03-04 21:40] VITALS: BP 131/88
== END 2022-03-04 21:43 | disposition home or self-care (01) ==
LOC: ER 15:28 → EDBD 15:28 → ER 21:43
DX: N39.0 Urinary tract infection, site not specified (principal); E11.9 Type 2 diabetes mellitus without complications; I10 Essential (primary) hypertension; E78.5 Hyperlipidemia, unspecified; F17.210 Nicotine dependence, cigarettes, uncomplicated; F15.10 Other stimulant abuse, uncomplicated; Z86.73 Personal history of transient ischemic attack (TIA), and cerebral infarction without residual deficits; Z79.899 Other long term (current) drug therapy; Z88.1 Allergy status to other antibiotic agents; Z88.2 Allergy status to sulfonamides; Z91.013 Allergy to seafood
CPT/HCPCS: 36415; 71045; 74176; 80053; 81001; 83690; 84484; 85025

== ENCOUNTER 2022-03-04 23:11 | Emergency (ER) | payer MEDICAID ==
[~2022-03-04] VITALS: Ht 177.8 cm; Wt 79.4 kg
[~2022-03-04 23:11] MED LIST changes: +NITR-87 PO
[2022-03-04 23:17] VITALS: BP 112/87
[2022-03-05 00:15] LABS: Salicylate < 1.7 mg/dL (2.8-20.0)
[2022-03-05 00:26] LABS: Acetaminophen < 2.0 ug/mL (10-30)
== END 2022-03-05 07:45 | disposition home or self-care (01) ==
LOC: ER 23:11 → EDBD 23:11 → ER 03-05 07:45
DX: F31.9 Bipolar disorder, unspecified (principal); F41.8 Other specified anxiety disorders; F17.210 Nicotine dependence, cigarettes, uncomplicated; F15.10 Other stimulant abuse, uncomplicated; E78.5 Hyperlipidemia, unspecified; Z86.73 Personal history of transient ischemic attack (TIA), and cerebral infarction without residual deficits; Z87.442 Personal history of urinary calculi; Z88.2 Allergy status to sulfonamides; Z88.1 Allergy status to other antibiotic agents; Z88.0 Allergy status to penicillin; Z91.013 Allergy to seafood; Z91.018 Allergy to other foods
CPT/HCPCS: 36415; 80320; 80329

== ENCOUNTER 2022-03-17 22:34 | Emergency (ER) | payer MEDICAID ==
[~2022-03-17] VITALS: Ht 172.7 cm; Wt 73.0 kg
[2022-03-17 23:01] VITALS: BP 148/86
== END 2022-03-18 01:09 | disposition left against medical advice (07) ==
LOC: EDBD 22:34 → ER 22:36
DX: H92.09 Otalgia, unspecified ear (principal); R51.9 Headache, unspecified; Z53.21 Procedure and treatment not carried out due to patient leaving prior to being seen by health care provider

== ENCOUNTER 2022-03-31 04:11 | Emergency (ER) | payer MEDICAID ==
[~2022-03-31] VITALS: Ht 170.2 cm; Wt 80.0 kg
[2022-03-31 06:35] LABS: Basophils # (auto) 0 10 ^3/uL (0-0.2); Basophils % (auto) 0.4 % (0.0-2.0); Eosinophils # (auto) 0.1 10 ^3/uL (0-0.8); Eosinophils % (auto) 0.7 % (0.0-7.0); Hematocrit 48.6 % (41.0-53.0); Hemoglobin 15.8 g/dL (13.5-17.5); Lymphocytes # (auto) 2.5 10 ^3/uL (0.4-5.4); Lymphocytes % (auto) 22.9 % (10.0-50.0); Mean Corpuscular Hemoglobin 30.1 pg (28.0-32.0); Mean Corpuscular Hgb Conc. 32.6 g/dL (32.0-36.0); Mean Corpuscular Volume 92.3 fL (80.0-100.0); Monocytes # (auto) 1.2 10 ^3/uL (0-1.3); Monocytes % (auto) 11.4 % (0.0-12.0); Neutrophils # (auto) 6.9 10 ^3/uL (1.6-8.6); Neutrophils % (auto) 64.6 % (37.0-80.0); Nucleated Red Blood Cells % 0.1 %; Red Blood Cells 5.27 10^6/uL (4.5-5.90); Red Cell Distribution Width 14.6 % (11.8-14.3); White Blood Cell 10.7 10^3/uL (4.4-10.8)
[2022-03-31 06:53] LABS: Albumin 4.1 g/dL (3.4-5.0); Potassium 4.3 mmol/L (3.5-5.1)
[2022-03-31 06:56] LABS: BUN/Creatinine Ratio 25.6; Bilirubin, Total 3.7 mg/dL (0.2-1.0); Total Protein 7.1 g/dL (6.4-8.2)
[2022-03-31 08:00] VITALS: BP 125/73
[2022-03-31 14:28] LABS: Urine Bacteria NONE SEEN /hpf (None Seen); Urine Blood 1+ /uL (Negative); Urine Mucus FEW (None Seen); Urine Specific Gravity 1.028 (1.001-1.035); Urine WBC 2 /hpf (0 - 3)
[2022-03-31] MEDS ORDERED: BACDST PO (15:46)
== END 2022-03-31 16:07 | disposition home or self-care (01) ==
LOC: ER 04:11 → EDBD 04:11 → ER 15:56
DX: N30.90 Cystitis, unspecified without hematuria (principal); I10 Essential (primary) hypertension; E11.9 Type 2 diabetes mellitus without complications; E78.5 Hyperlipidemia, unspecified; F17.210 Nicotine dependence, cigarettes, uncomplicated; Z86.73 Personal history of transient ischemic attack (TIA), and cerebral infarction without residual deficits; Z79.899 Other long term (current) drug therapy; Z88.2 Allergy status to sulfonamides; Z88.0 Allergy status to penicillin; Z88.1 Allergy status to other antibiotic agents; Z91.013 Allergy to seafood; Z91.010 Allergy to peanuts
CPT/HCPCS: 36415; 80053; 81001; 83690; 85025

== ENCOUNTER 2022-09-30 01:35 | Emergency (ER) | payer MEDICAID ==
[~2022-09-30] VITALS: Ht 175.3 cm; Wt 68.0 kg
[~2022-09-30 01:35] MED LIST changes: +BACDST PO
[2022-09-30 03:07] VITALS: BP 145/68
[2022-09-30] MEDS ORDERED: CEPH-510 PO (04:00)
[2022-09-30] MEDS ORDERED: ACET-1158 PO (04:00)
== END 2022-09-30 04:57 | disposition home or self-care (01) ==
LOC: ER 01:35 → EDBD 01:35 → ER 04:55
DX: S01.01XA Laceration without foreign body of scalp, initial encounter (principal); F15.10 Other stimulant abuse, uncomplicated; F17.210 Nicotine dependence, cigarettes, uncomplicated; E11.9 Type 2 diabetes mellitus without complications; E78.5 Hyperlipidemia, unspecified; I10 Essential (primary) hypertension; R51.9 Headache, unspecified; Z87.442 Personal history of urinary calculi; Z86.73 Personal history of transient ischemic attack (TIA), and cerebral infarction without residual deficits; Z88.2 Allergy status to sulfonamides; Z88.1 Allergy status to other antibiotic agents; W26.8XXA Contact with other sharp object(s), not elsewhere classified, initial encounter; Y93.89 Activity, other specified; Y92.89 Other specified places as the place of occurrence of the external cause; Y99.8 Other external cause status
CPT/HCPCS: 12002; 70450

== ENCOUNTER 2022-09-30 06:27 | Emergency (ER) | payer MEDICAID ==
[~2022-09-30] VITALS: Ht 175.3 cm; Wt 68.0 kg
[~2022-09-30 06:27] MED LIST changes: +ACET-1158 PO; +CEPH-510 PO
[2022-09-30 07:09] LABS: Basophils # (auto) 0.1 10 ^3/uL (0-0.2); Basophils % (auto) 1.3 % (0.0-2.0); Eosinophils # (auto) 0.1 10 ^3/uL (0-0.8); Eosinophils % (auto) 1.5 % (0.0-7.0); Hematocrit 46.2 % (41.0-53.0); Hemoglobin 15.9 g/dL (13.5-17.5); Lymphocytes # (auto) 2.6 10 ^3/uL (0.4-5.4); Lymphocytes % (auto) 32.4 % (10.0-50.0); Mean Corpuscular Hemoglobin 30.6 pg (28.0-32.0); Mean Corpuscular Hgb Conc. 34.4 g/dL (32.0-36.0); Mean Corpuscular Volume 88.9 fL (80.0-100.0); Monocytes # (auto) 0.9 10 ^3/uL (0-1.3); Monocytes % (auto) 11.2 % (0.0-12.0); Neutrophils # (auto) 4.3 10 ^3/uL (1.6-8.6); Neutrophils % (auto) 53.6 % (37.0-80.0); Nucleated Red Blood Cells % 0.1 %; Red Blood Cells 5.19 10^6/uL (4.5-5.90); White Blood Cell 8.1 10^3/uL (4.4-10.8)
[2022-09-30 07:11] LABS: Urine Bacteria NONE SEEN /hpf (None Seen); Urine Blood TRACE /uL (Negative); Urine Mucus FEW (None Seen); Urine Specific Gravity 1.023 (1.001-1.035); Urine Sperm PRESENT /hpf (None Seen); Urine WBC 4 /hpf (0 - 3)
[2022-09-30 07:33] LABS: Albumin 3.6 g/dL (3.4-5.0); Calcium 8.8 mg/dL (8.5-10.1)
[2022-09-30 07:37] LABS: BUN/Creatinine Ratio 18.5 (10.0-20.0); Bilirubin, Total 1.3 mg/dL (0.2-1.0); Total Protein 6.8 g/dL (6.4-8.2)
[2022-09-30 10:51] VITALS: BP 135/78
== END 2022-09-30 10:57 | disposition home or self-care (01) ==
LOC: ER 06:27
DX: R10.84 Generalized abdominal pain (principal); F17.210 Nicotine dependence, cigarettes, uncomplicated; F15.10 Other stimulant abuse, uncomplicated; E11.9 Type 2 diabetes mellitus without complications; E78.5 Hyperlipidemia, unspecified; Z86.73 Personal history of transient ischemic attack (TIA), and cerebral infarction without residual deficits; Z87.442 Personal history of urinary calculi; Z88.0 Allergy status to penicillin; Z88.2 Allergy status to sulfonamides; Z91.013 Allergy to seafood
CPT/HCPCS: 36415; 74176; 80053; 81001; 83690; 85025

== ENCOUNTER 2022-11-15 23:31 | Emergency (ER) | payer MEDICAID ==
[~2022-11-15] VITALS: Ht 172.7 cm; Wt 70.0 kg
[2022-11-16] MEDS ORDERED: TETANUS-DIPTH-ACEL PERTUSSIS 0.5ML SYR Tdap IM ONE (03:30)
[2022-11-16] MEDS ORDERED: KETOROLAC TROMETH 30 MG/ML 1ML VIAL IM ONE (03:30)
[2022-11-16] MEDS ORDERED: AZIT500T66 PO (05:45)
[2022-11-16 06:25] VITALS: BP 115/65
== END 2022-11-16 06:47 | disposition home or self-care (01) ==
LOC: ER 23:31
DX: J02.9 Acute pharyngitis, unspecified (principal); M25.572 Pain in left ankle and joints of left foot; F17.210 Nicotine dependence, cigarettes, uncomplicated; F15.10 Other stimulant abuse, uncomplicated; Z88.2 Allergy status to sulfonamides; Z88.0 Allergy status to penicillin; Z91.013 Allergy to seafood
CPT/HCPCS: 73610; 73620; 90471; 90715; 96372; 99284; J1885

== ENCOUNTER 2023-01-10 17:27 | Emergency (ER) | payer MEDICAID ==
[~2023-01-10] VITALS: Ht 182.9 cm; Wt 81.8 kg
[2023-01-10 17:27] VITALS: BP 136/81
[~2023-01-10 17:27] MED LIST changes: -ACET-1158 PO; +ACET500T58 PO; +AZIT500T66 PO; -DIVA500T2 OR; -DIVA500T2 PO; +DIVA500T3 OR; +DIVA500T3 PO; -LISI20TA28; +LISI20TA56; +LORA-1123 OR; -LORA1TAB23 OR; -SIMV-8 PO; +SIMV20TA20 PO
[2023-01-10] MEDS ORDERED: HYDROcodone-ACET 10/325MG TAB PO ONE (20:30)
[2023-01-10] MEDS ORDERED: ONDANSETRON ODT 4 MG TAB PO ONE (20:30)
== END 2023-01-10 21:29 | disposition home or self-care (01) ==
LOC: ER 17:27 → EDUNIT# 17:27 → EDBD 17:27 → ER 20:59
DX: M25.572 Pain in left ankle and joints of left foot (principal); F41.9 Anxiety disorder, unspecified; F32.9 Major depressive disorder, single episode, unspecified; F17.210 Nicotine dependence, cigarettes, uncomplicated; F15.90 Other stimulant use, unspecified, uncomplicated; Z88.1 Allergy status to other antibiotic agents; Z98.890 Other specified postprocedural states; Z91.010 Allergy to peanuts; Z88.0 Allergy status to penicillin; Z91.013 Allergy to seafood; Z88.2 Allergy status to sulfonamides; Z79.1 Long term (current) use of non-steroidal anti-inflammatories (NSAID); Z79.82 Long term (current) use of aspirin; Z79.899 Other long term (current) drug therapy; X50.1XXA Overexertion from prolonged static or awkward postures, initial encounter; Y93.89 Activity, other specified; Y92.89 Other specified places as the place of occurrence of the external cause; Y99.8 Other external cause status
CPT/HCPCS: 73610; 73630

== ENCOUNTER 2023-02-15 05:34 | Emergency (ER) | payer MEDICAID ==
[~2023-02-15] VITALS: Ht 172.7 cm; Wt 68.0 kg
[2023-02-15 06:43] LABS: Basophils # (auto) 0.1 10 ^3/uL (0-0.2); Basophils % (auto) 0.6 % (0.0-2.0); Eosinophils # (auto) 0.1 10 ^3/uL (0-0.8); Hematocrit 48.6 % (41.0-53.0); Hemoglobin 16.5 g/dL (13.5-17.5); Lymphocytes # (auto) 2.5 10 ^3/uL (0.4-5.4); Lymphocytes % (auto) 23.2 % (10.0-50.0); Mean Corpuscular Volume 91.1 fL (80.0-100.0); Monocytes # (auto) 1.3 10 ^3/uL (0-1.3); Monocytes % (auto) 11.7 % (0.0-12.0); Neutrophils # (auto) 6.8 10 ^3/uL (1.6-8.6); Neutrophils % (auto) 63.5 % (37.0-80.0); Red Blood Cells 5.33 10^6/uL (4.5-5.90); Red Cell Distribution Width 14.2 % (11.8-14.3); White Blood Cell 10.8 10^3/uL (4.4-10.8)
[2023-02-15 06:58] LABS: Potassium 3.3 mmol/L (3.5-5.1)
[2023-02-15 07:08] LABS: Albumin 3.9 g/dL (3.4-5.0); BUN/Creatinine Ratio 26.3 (10.0-20.0); Bilirubin, Total 1.6 mg/dL (0.2-1.0); Total Protein 7.2 g/dL (6.4-8.2)
[2023-02-15] MEDS ORDERED: POTASSIUM EFFERVESENT TAB 25 MEQ PO ONE (08:30)
[2023-02-15 08:41] VITALS: BP 133/80; PULSE 76; RESP 15; TEMP 98.2; O2SAT 98
[2023-02-15 09:25] LABS: Urine Amorphous Crystal FEW /hpf (None Seen); Urine Bacteria NONE SEEN /hpf (None Seen); Urine Blood 2+ /uL (Negative); Urine Clarity CLOUDY (Clear); Urine Color Yellow (Yellow); Urine Mucus FEW (None Seen); Urine Protein, UAD TRACE (Negative); Urine Specific Gravity 1.031 (1.001-1.035); Urine Urobilinogen Normal (Negative); Urine WBC 7 /hpf (0 - 3)
[2023-02-15] MEDS ORDERED: DICL50TA2 PO (09:41)
[2023-02-15] MEDS ORDERED: PANT1INJ3 IV (09:41)
== END 2023-02-15 10:03 | disposition home or self-care (01) ==
LOC: EDBD 05:34 → ER 05:34
DX: E87.6 Hypokalemia (principal); R10.9 Unspecified abdominal pain; R74.8 Abnormal levels of other serum enzymes; F41.9 Anxiety disorder, unspecified; F32.9 Major depressive disorder, single episode, unspecified; I10 Essential (primary) hypertension; E78.5 Hyperlipidemia, unspecified; F17.210 Nicotine dependence, cigarettes, uncomplicated; F15.90 Other stimulant use, unspecified, uncomplicated; Z98.890 Other specified postprocedural states; Z88.0 Allergy status to penicillin; Z88.1 Allergy status to other antibiotic agents; Z88.2 Allergy status to sulfonamides; Z91.010 Allergy to peanuts; Z91.013 Allergy to seafood; Z79.1 Long term (current) use of non-steroidal anti-inflammatories (NSAID); Z79.82 Long term (current) use of aspirin; Z79.899 Other long term (current) drug therapy
CPT/HCPCS: 36415; 80053; 81001; 83690; 85025

== ENCOUNTER 2023-06-26 22:28 | Emergency (ER) | payer MEDICAID ==
[~2023-06-26] VITALS: Ht 167.6 cm; Wt 70.0 kg
[~2023-06-26 22:28] MED LIST changes: +DICL50TA2 PO; +PANT1INJ3 IV
[2023-06-26 22:30] VITALS: BP 116/78; PULSE 93; RESP 14; TEMP 98.6; O2SAT 98
[2023-06-27] MEDS ORDERED: ALBU108A5 IN (02:06)
[2023-06-27] MEDS ORDERED: PRED20TA2 PO (02:06)
[2023-06-27] MEDS ORDERED: AZITTAB PO (02:06)
[2023-06-27] MEDS ORDERED: BENZ200C64 PO (02:06)
[2023-06-27] MEDS ORDERED: METH4PAK PO ×3 (09:06→09:07)
[2023-06-27] MEDS ORDERED: PROM1SOL4 PO (09:07)
== END 2023-06-27 07:22 | disposition home or self-care (01) ==
LOC: ER 22:28 → EDBD 22:28 → ER 06-27 02:06
DX: J06.9 Acute upper respiratory infection, unspecified (principal); E78.5 Hyperlipidemia, unspecified; I10 Essential (primary) hypertension; F17.210 Nicotine dependence, cigarettes, uncomplicated; F15.10 Other stimulant abuse, uncomplicated

== ENCOUNTER 2023-06-27 02:22 | Emergency (ER) | payer MEDICAID ==
[~2023-06-27 02:22] MED LIST changes: +ALBU108A5 IN; +AZITTAB PO; +BENZ200C64 PO; +PRED20TA2 PO
[2023-06-27] MEDS ORDERED: METH4PAK PO ×3 (09:06→09:07)
[2023-06-27] MEDS ORDERED: PROM1SOL4 PO (09:07)
== END 2023-06-27 02:45 | disposition left against medical advice (07) ==
LOC: ER 02:22
DX: Z00.8 Encounter for other general examination (principal); Z53.21 Procedure and treatment not carried out due to patient leaving prior to being seen by health care provider

== ENCOUNTER 2023-06-27 08:20 | Emergency (ER) | payer MEDICAID ==
[~2023-06-27] VITALS: Ht 175.3 cm; Wt 69.6 kg
[2023-06-27 08:53] VITALS: BP 133/89; PULSE 98; RESP 16; TEMP 98.3; O2SAT 99
[2023-06-27] MEDS ORDERED: methylPREDNISolone SOD SUCC 125 MG/2 ML VL IM ONE (09:00)
[2023-06-27] MEDS ORDERED: cefTRIAXone SOD 1,000 MG VL IM ONE (09:00)
[2023-06-27] MEDS ORDERED: METH4PAK PO ×3 (09:06→09:07)
[2023-06-27] MEDS ORDERED: PROM1SOL4 PO (09:07)
== END 2023-06-27 09:24 | disposition home or self-care (01) ==
LOC: ER 08:20
DX: K12.2 Cellulitis and abscess of mouth (principal); J06.9 Acute upper respiratory infection, unspecified; E11.9 Type 2 diabetes mellitus without complications; E78.5 Hyperlipidemia, unspecified; I10 Essential (primary) hypertension; F17.210 Nicotine dependence, cigarettes, uncomplicated; F15.10 Other stimulant abuse, uncomplicated; Z88.2 Allergy status to sulfonamides; Z88.1 Allergy status to other antibiotic agents; Z88.0 Allergy status to penicillin; Z91.013 Allergy to seafood; Z91.010 Allergy to peanuts; Z59.00 Homelessness unspecified
CPT/HCPCS: 71045; 96372; 99284; J0696; J2930

== ENCOUNTER 2023-12-17 03:22 | Emergency (ER) | payer MEDICAID ==
[~2023-12-17] VITALS: Ht 162.6 cm; Wt 75.0 kg
[~2023-12-17 03:22] MED LIST changes: +DIVA-91 OR; +DIVA-91 PO; -DIVA500T3 OR; -DIVA500T3 PO; +METH4PAK PO; +PROM1SOL4 PO
[2023-12-17 03:26] VITALS: BP 128/76; PULSE 69; RESP 16; TEMP 97.8
[2023-12-17] MEDS ORDERED: DOXY-448 PO (04:55)
[2023-12-17 04:57] VITALS: O2SAT 100
[2023-12-17] MEDS: TETANUS-DIPTH-ACEL PERTUSSIS 0.5ML SYR Tdap IM ONE (05:51)
== END 2023-12-17 06:22 | disposition home or self-care (01) ==
LOC: EDBD 03:22 → ER 03:22
DX: S60.512A Abrasion of left hand, initial encounter (principal); F41.9 Anxiety disorder, unspecified; F32.A Depression, unspecified; E11.9 Type 2 diabetes mellitus without complications; E78.5 Hyperlipidemia, unspecified; I10 Essential (primary) hypertension; R56.9 Unspecified convulsions; F17.210 Nicotine dependence, cigarettes, uncomplicated; Z88.1 Allergy status to other antibiotic agents; Z88.2 Allergy status to sulfonamides; Z91.013 Allergy to seafood; Z91.010 Allergy to peanuts; Z88.0 Allergy status to penicillin; Z79.899 Other long term (current) drug therapy; W54.0XXA Bitten by dog, initial encounter; Y93.89 Activity, other specified; Y92.89 Other specified places as the place of occurrence of the external cause; Y99.8 Other external cause status
CPT/HCPCS: 73130; 90471; 90715

== ENCOUNTER 2024-01-04 02:44 | Emergency (ER) | payer MEDICAID ==
[~2024-01-04] VITALS: Ht 175.3 cm; Wt 70.0 kg
[~2024-01-04 02:44] MED LIST changes: +DOXY-448 PO
[2024-01-04 03:27] LABS: Basophils # (auto) 0.1 10 ^3/uL (0-0.2); Basophils % (auto) 0.7 % (0.0-2.0); Eosinophils # (auto) 0.2 10 ^3/uL (0-0.8); Eosinophils % (auto) 2.1 % (0.0-7.0); Hematocrit 46.1 % (41.0-53.0); Hemoglobin 15.2 g/dL (13.5-17.5); Lymphocytes # (auto) 2.1 10 ^3/uL (0.4-5.4); Lymphocytes % (auto) 27.6 % (10.0-50.0); Mean Corpuscular Hemoglobin 30.1 pg (28.0-32.0); Mean Corpuscular Volume 91.1 fL (80.0-100.0); Monocytes # (auto) 1.1 10 ^3/uL (0-1.3); Neutrophils # (auto) 4.2 10 ^3/uL (1.6-8.6); Neutrophils % (auto) 54.6 % (37.0-80.0); Red Blood Cells 5.07 10^6/uL (4.5-5.90); White Blood Cell 7.6 10^3/uL (4.4-10.8)
[2024-01-04 03:42] LABS: INR 1.01 (0.9-1.15); Partial Thromboplastin Time 26.2 SEC (24.5-34.5); Prothrombin Time 10.7 sec (9.3-11.8)
[2024-01-04 03:46] LABS: Alanine Aminotransferase 21 U/L (7-40); Albumin 4.1 g/dL (3.2-4.8); Alkaline Phosphatase 87 U/L (46-116); Anion Gap 5 (5-15); Aspartate Aminotransferase 22 U/L (13-40); BUN/Creatinine Ratio 13.5 (10.0-20.0); Bilirubin, Total 0.8 mg/dL (0.2-1.0); Blood Urea Nitrogen 10 mg/dL (9-23); Calcium 9.6 mg/dL (8.7-10.4); Carbon Dioxide 25 mmol/L (20-30); Chloride 108 mmol/L (98-107); Glucose 110 mg/dL (74-106); Potassium 3.8 mmol/L (3.5-5.1); Sodium 138 mmol/L (136-145); Total Protein 6.4 g/dL (5.7-8.2)
[2024-01-04] MEDS: SODIUM CHLORIDE 0.9% 1,000 ML IV ONE (07:19)
[2024-01-04] MEDS: MAALOX PLUS or MAALOX 30 ML PO ONE (07:30)
[2024-01-04] MEDS: KETOROLAC TROMETH 30 MG/ML 1ML VIAL IV ONE (07:32)
[2024-01-04 08:44] LABS: Urine Bacteria None Seen /hpf (None Seen)
[2024-01-04 08:59] LABS: Urine Blood TRACE /uL (Negative); Urine Clarity Clear (Clear); Urine Color Yellow (Yellow); Urine Mucus FEW (None Seen); Urine Protein, UAD TRACE (Negative); Urine Specific Gravity 1.029 (1.001-1.035); Urine Urobilinogen Normal (Negative); Urine WBC 4 /hpf (0 - 3); Urine pH 5.5 (5.0-9.0)
[2024-01-04] MEDS ORDERED: ESOM20CA PO (09:39)
[2024-01-04 10:30] VITALS: BP 113/75; PULSE 63; RESP 16; TEMP 97.8; O2SAT 99
== END 2024-01-04 10:50 | disposition home or self-care (01) ==
LOC: ER 02:44 → EDBD 02:44 → ER 10:50
DX: K21.9 Gastro-esophageal reflux disease without esophagitis (principal); E11.9 Type 2 diabetes mellitus without complications; E78.5 Hyperlipidemia, unspecified; I10 Essential (primary) hypertension; F17.210 Nicotine dependence, cigarettes, uncomplicated; Z59.00 Homelessness unspecified; Z88.2 Allergy status to sulfonamides; Z88.0 Allergy status to penicillin; Z91.013 Allergy to seafood; Z91.010 Allergy to peanuts
CPT/HCPCS: 36415; 71046; 76705; 80053; 81001; 83690; 84484; 85025; 85610; 85730; 87086; 93005; 96361; 96374; 99285; J1885; J7030

== ENCOUNTER 2024-01-30 06:19 | Emergency (ER) | payer MEDICAID ==
[~2024-01-30] VITALS: Ht 170.2 cm; Wt 75.0 kg
[~2024-01-30 06:19] MED LIST changes: +ESOM20CA PO
[2024-01-30 07:06] LABS: Chloride 107 mmol/L (98-107); Sodium 139 mmol/L (136-145)
[2024-01-30 07:07] LABS: Anion Gap 3 (5-15); Calcium 9.4 mg/dL (8.7-10.4); Carbon Dioxide 29 mmol/L (20-30)
[2024-01-30 07:12] LABS: BUN/Creatinine Ratio 17.3 (10.0-20.0); Blood Urea Nitrogen 13 mg/dL (9-23); Glucose 108 mg/dL (74-106)
[2024-01-30 07:15] LABS: Basophils # (auto) 0 10 ^3/uL (0-0.2); Basophils % (auto) 0.7 % (0.0-2.0); Eosinophils # (auto) 0.1 10 ^3/uL (0-0.8); Eosinophils % (auto) 1.8 % (0.0-7.0); Hematocrit 44.1 % (41.0-53.0); Lymphocytes # (auto) 1.7 10 ^3/uL (0.4-5.4); Lymphocytes % (auto) 24.3 % (10.0-50.0); Mean Corpuscular Hemoglobin 31.1 pg (28.0-32.0); Mean Corpuscular Volume 91.4 fL (80.0-100.0); Monocytes # (auto) 0.8 10 ^3/uL (0-1.3); Monocytes % (auto) 11.5 % (0.0-12.0); Neutrophils # (auto) 4.3 10 ^3/uL (1.6-8.6); Neutrophils % (auto) 61.7 % (37.0-80.0); Nucleated Red Blood Cells % 0.1 %; Red Blood Cells 4.82 10^6/uL (4.5-5.90); Red Cell Distribution Width 13.9 % (11.8-14.3)
[2024-01-30 07:47] VITALS: BP 121/62; TEMP 97.9
[2024-01-30 07:48] VITALS: PULSE 82; RESP 16; O2SAT 100
[2024-01-30 08:10] LABS: Urine Bacteria FEW /hpf (None Seen); Urine Blood 1+ /uL (Negative); Urine Clarity Clear (Clear); Urine Color Yellow (Yellow); Urine Mucus FEW (None Seen); Urine Protein, UAD 1+ (Negative); Urine Specific Gravity 1.029 (1.001-1.035); Urine Sperm PRESENT /hpf (None Seen); Urine Urobilinogen Normal (Negative); Urine WBC 4 /hpf (0 - 3); Urine pH 5.5 (5.0-9.0)
== END 2024-01-30 07:58 | disposition home or self-care (01) ==
LOC: EDBD 06:19 → ER 06:19
DX: R10.9 Unspecified abdominal pain (principal); F15.90 Other stimulant use, unspecified, uncomplicated; I10 Essential (primary) hypertension; E11.9 Type 2 diabetes mellitus without complications; E78.5 Hyperlipidemia, unspecified; F41.9 Anxiety disorder, unspecified; F32.9 Major depressive disorder, single episode, unspecified; F17.210 Nicotine dependence, cigarettes, uncomplicated; Z98.890 Other specified postprocedural states; Z59.00 Homelessness unspecified; Z88.0 Allergy status to penicillin; Z88.2 Allergy status to sulfonamides; Z88.1 Allergy status to other antibiotic agents; Z91.010 Allergy to peanuts; Z91.013 Allergy to seafood; Z79.899 Other long term (current) drug therapy
CPT/HCPCS: 36415; 80048; 81001; 85025

== ENCOUNTER 2024-02-23 23:38 | Emergency (ER) | payer MEDICAID ==
[~2024-02-23] VITALS: Ht 172.7 cm; Wt 66.2 kg
[~2024-02-23 23:38] MED LIST changes: -DOXY-448 PO; +DOXY100C79 PO
[2024-02-23 23:49] VITALS: BP 124/80; PULSE 86; RESP 14; O2SAT 98
[2024-02-24] MEDS ORDERED: ACET500T58 PO (02:52)
== END 2024-02-24 03:15 | disposition home or self-care (01) ==
LOC: ER 23:38
DX: S63.501A Unspecified sprain of right wrist, initial encounter (principal); S50.11XA Contusion of right forearm, initial encounter; E11.9 Type 2 diabetes mellitus without complications; E78.5 Hyperlipidemia, unspecified; I10 Essential (primary) hypertension; F17.210 Nicotine dependence, cigarettes, uncomplicated; F15.10 Other stimulant abuse, uncomplicated; Z59.00 Homelessness unspecified; Z88.0 Allergy status to penicillin; Z88.2 Allergy status to sulfonamides; Z88.1 Allergy status to other antibiotic agents; Z91.013 Allergy to seafood; Z91.010 Allergy to peanuts; V86.96XA Unspecified occupant of dirt bike or motor/cross bike injured in nontraffic accident, initial encounter; Y93.89 Activity, other specified; Y92.89 Other specified places as the place of occurrence of the external cause; Y99.8 Other external cause status
CPT/HCPCS: 29125; 73090; 73110

== ENCOUNTER 2025-05-07 14:52 | Inpatient (IN) | payer MEDICAID ==
[~2025-05-07] VITALS: Ht 172.7 cm; Wt 71.2 kg
[2025-05-07 15:31] LABS: Hematocrit 40.2 % (41.0-53.0); Hemoglobin 13.5 g/dL (13.5-17.5); Mean Corpuscular Hemoglobin 30.2 pg (28.0-32.0); Mean Corpuscular Volume 89.8 fL (80.0-100.0); Nucleated Red Blood Cells % 0.2 %
[2025-05-07 15:33] LABS: Potassium 4.5 mmol/L (3.5-5.1); Sodium 144 mmol/L (136-145)
[2025-05-07 15:34] LABS: Anion Gap 3 (5-15); Carbon Dioxide 26 mmol/L (20-31)
[2025-05-07 15:38] VITALS: PULSE 66; RESP 13; O2SAT 97
--- NOTE | 2025-05-07 15:38 | ED.PDOC ---
HPI Comments 54 y.o male presents to the ED via EMS for a chief complaint of mid chest pain associated with left arm numbness and SOB that started 3 hours prior to arrival while he was at the [facility]. Patient reports pain is constant, initially was a 10/10 but went down to a 5/10 s/p EMS gave 324mg ASA and 1 NTG en route. At bedside, patient now states pain has increased to a 7-8/10. Additionally, patient complains of diarrhea that started today as well with flu like symptoms such as a cough, runny nose and flank pain that has been ongoing for a couple days. H admits to using methamphetamine 3 days ago and has a hx of tobacco use as well. At bedside, BP reads 93/52. He reports a history of HTN, CVA with left sided deficits, HLD, seizures, BPD, and depression. Chief Complaint: Chest Pain Time Seen by MD: 15:49 Primary Care Provider: DEA Reviewed Notes: Nurses Notes, Meteorological Equipment Repairer Notes, Medications, Allergies Allergies: Coded Allergies: Sulfa Antibiotics (Verified Allergy, Severe, 03/04/22) Ciprofloxacin (Verified Allergy, Mild, throat itching, 03/04/22) Shellfish Allergy (Verified Allergy, Mild, 03/04/22) Sulfa Drugs (Verified Allergy, Mild, 03/04/22) Peanut Oil (Verified Allergy, Unknown, PEANUTS, 03/04/22) Peanut-containing Drug Products (Verified Allergy, Unknown, 03/04/22) Penicillins (Verified Allergy, Unknown, 03/04/22) Home Meds Active Scripts Acetaminophen (Acetaminophen) 500 Mg Tab, 500 MG PO Q4HPRN, #30 TAB 0 Refills Prov:LEX NG 02/24/24 Esomeprazole Magnesium Trihydr (Nexium) 20 Mg Cap, 1 CAP PO DAILY, #30 CAP 0 Refills Prov:DILMA YING NP 01/04/24 Doxycycline (Monohydrate) (Doxycycline) 100 Mg Cap, 100 MG PO BID for 14 Days, #28 CAP 0 Refills Prov:LEX NG 12/17/23 Methylprednisolone (Medrol Dosepak) 4 Mg [place], 4 MG PO UD, #21 TAB UAD Prov:DIAN SUTTON 06/27/23 Promethazine-Dm (Promethazine Dm 6.25-15 mg/5Ml) 1 Kandis Kandis, 5 ML PO TID, #150 ML Prov:DIAN SUTTON 06/27/23 Prednisone (Prednisone) 20 Mg Tab, 20 MG PO DAILY for 5 Days, #5 TAB 0 Refills Prov:ROD POWERS [facility] 06/27/23 Albuterol Sulfate (Albuterol Sulfate Hfa) 108 Mcg/Act Aer, 2 PUFF IN Q6HPRN PRN, #1 INHALER 0 Refills Prov:POWERSVALERY FARRELLRA Aaliyah [facility] 06/27/23 Benzonatate (Benzonatate) 200 Mg Cap, 1 CAP PO TID PRN, #30 CAP 0 Refills Prov:POWERSVALERY FARRELLRA Aaliyah [facility] 06/27/23 Azithromycin (Zithromax Z-[place]) 250 Mg Tab, 250 MG PO DAILY for 5 Days, #6 TAB 0 Refills Z-[place] as directed Prov:POWERSROD Aaliyah [facility] 06/27/23 Pantoprazole Sodium (PANTOPRAZOLE SODIUM) 40 Mg Inj, 40 MG IV DAILY for 15 Days, #15 INJ Prov:DAHIANA HILARIO MD 02/15/23 Diclofenac Potassium (Diclofenac Potassium) 50 Mg Tab, 1 TAB PO TIDP for 5 Days, #15 TAB Prov:DAHIANA HILARIO MD 02/15/23 Azithromycin (Azithromycin) 500 Mg Tab, 1 TAB PO DAILY for 5 Days, #5 TAB 0 Refills Prov:CESAR OLIVO 11/16/22 Acetaminophen (Acetaminophen) 500 Mg Tab, 500 MG PO QIDP, #30 TAB 0 Refills Prov:LEX NG 09/30/22 Cephalexin ( Keflex 500) 500 Mg Cap, 1 CAP PO BID for 7 Days, #14 CAP 0 Refills Prov:LEX NG 09/30/22 Sulfamethoxazole W/Trimethopri (Bactrim Ds Tablet) 1 Tab Tb, 1 TAB PO BID for 5 Days, #10 TAB Prov:DAHIANA HILARIO MD 03/31/22 Nitrofurantoin Monohydrate Mac (Macrobid) 100 Mg Cap, 100 MG PO BID for 7 Days, #14 CAP Prov:RAJ KAN MD 03/04/22 Acetaminophen (Tylenol 8 Hour Arthritis) 650 Mg Tab, 650 MG PO TID, #30 TAB Prov:DIAN SUTTON 01/31/22 Ciprofloxacin Hcl (Cipro) 500 Mg Tab, 1 TAB PO BID, #20 TAB Prov:DIAN SUTTON 01/31/22 Ondansetron (Zofran) 4 Mg Tab, 1 TAB PO Q6HR, #20 TAB Prov:SEVERIANO LIND MD 12/21/21 Oxycodone W/ Acetaminophen (Percocet 5/325MG) 1 Tab Tb, 1 TAB PO BID for 7 Days, #14 TAB Prov:RAJ KAN MD 12/19/21 Acetaminophen (Tylenol 8 Hour Arthritis) 650 Mg Tab, 650 MG PO TID, #30 TAB Prov:DIAN SUTTON 08/23/21 Baclofen (Baclofen) 10 Mg Tab, 10 MG PO QHSP PRN for 20 Days, #20 TAB Prov:DIAN SUTTON 08/23/21 Reported Medications Lisinopril (Zestril) 5 Mg Tab 01/27/11 Oxcarbazepine (Trileptal) 150 Mg Tab 01/27/11 [Resperidol] No Conflict Check 01/27/11 Gabapentin (Neurontin) 100 Mg Cap 01/27/11 Lisinopril (Lisinopril) 20 Mg Tab 05/13/10 Famotidine (Acid Control Maximum Stre) 20 Mg Tab 05/13/10 Lorazepam (Lorazepam) 1 Mg Tab, 1 MG OR QHS 03/05/10 Divalproex Sodium (Depakote) 500 Mg Tab, 1500 MG OR QPM 03/05/10 [Trazadone] No Conflict Check, 150 MG PO QAM 01/17/10 Aspirin (Aspir-81) 81 Mg Tab 11/21/09 Phenytoin Sodium (Dilantin) 100 Mg Cap, 600 MG PO QAM 11/21/09 Metoprolol Tartrate (Lopressor) 50 Mg Tab, 50 MG PO BID 11/21/09 Simvastatin (Simvastatin) 20 Mg Tab, 20 MG PO QHS 11/21/09 [Paxil] No Conflict Check, 40 MG PO QAM 11/21/09 Divalproex Sodium (Depakote) 500 Mg Tab, 1000 MG PO QAM 11/21/09 Information Source: Patient Mode of Arrival: EMS Severity: Moderate Timing: Hours Duration: Since onset Location: Substernal Radiation: Arm (L) Quality: Sharp Onset: At Rest Cardiac Risk Factors: Hyperlipidemia, HTN PE Risk Factors: None History of: None Modifying Factors: Nothing Associated Signs and Symptoms: SOB Past Medical History PAST MEDICAL HISTORY: Anxiety, Depression, DM, High Lipids, HTN, Schizophrenia, Seizures Past Medical History (Other): BPD Family History Family History: Unknown Social History Smoker: Cigarettes, Less Than 1 Pack/Day Alcohol: Occasionally Drugs: Methamphetamine Lives In: Homeless Constitutional: denies: chills, diaphoresis, fatigue, fever, malaise, sweats, weakness, others EENTM: reports: nasal discharge; denies: blurred vision, double vision, ear bleeding, ear discharge, ear drainage, ear pain, ear ringing, eye pain, eye redness, hearing loss, mouth pain, mouth swelling, nose bleeding, nose congestion, nose pain, photophobia, tearing, throat pain, throat swelling, voice changes, others Respiratory: reports: cough, SOB at rest, shortness of breath, SOB with excert ion Cardiovascular: reports: chest pain; denies: dizzy spells, diaphoresis, Dyspnea on exertion, edema, irregular heart beat, left arm pain, lightheadedness, palpitations, PND, syncope, others Gastrointestinal: reports: diarrhea; denies: abdomen distended, abdominal pain, blood streaked bowels, constipated, dysphagia, difficulty swallowing, hematemesis, melena, nausea, poor appetite, poor fluid intake, rectal bleeding, rectal pain, vomiting, others Genitourinary: reports: flank pain; denies: burning, dysuria, frequency, hematuria, incontinence, penile discharge, penile sore, pain, testicle pain, testicle swelling, urgency, others Neurological: denies: dizziness, fainting, headache, left sided numbness, left sided weakness, numbness, paresthesia, pre-existing deficit, right sided numbness, right sided weakness, seizure, speech problems, tingling, tremors, weakness, others Musculoskeletal: denies: back pain, gout, joint pain, joint swelling, muscle pain, muscle stiffness, neck pain, others Integumetry: denies: bruises, change in color, change in hair/nails, dryness, laceration, lesions, lumps, rash, wounds, others Allergic/Immunocompromised: denies: Difficulty Healing, Frequent Infections, Hives, Itching, others Hematologic/Lymphatic: denies: anemia, blood clots, easy bleeding, easy bruisi ng, swollen glands, others Endocrine: denies: excessive hunger, excessive sweating, excessive thirst, exce ssive urination, flushing, intolerance to cold, intolerance to heat, unexplained weight gain, unexplained weight loss, others Psychiatric: denies: anxiety, bipolar disorder, depression, hopeless, panic disorder, schizophrenia, sleepless, suicidal, others All Other Systems: Reviewed and Negative Physical Exam General Appearance: Moderate Distress, Normal HEENT: Normal ENT Inspection, Pharynx Normal, TMs Normal Neck: Full Range of Motion, Non-Tender, Normal, Normal Inspection Respiratory: Chest Non-Tender, Lungs Clear, No Accessory Muscle Use, No Respiratory Distress, Normal Breath Sounds Cardiovascular: No Edema, No JVD, No Murmur, No Gallop, Normal Peripheral Pulses, Regular Rate/Rhythm Breast Exam: Deferred Gastrointestinal: No Organomegaly, Non Tender, No Pulsatile Mass, Normal Bowel Sounds, Soft Genitalia: Deferred Pelvic: Deferred Rectal: Deferred Extremities: No calf tenderness, Normal capillary refill, Swelling (Left lower 2+ edema. Right lower extremity with leg brace in place from recent fracture.) Musculoskeletal : Apperance: Normal Neurologic: Alert, No Motor Deficits, Normal Affect, Normal Mood, No Sensory Deficits Cerebellar Function: Normal Reflexes: Normal Skin: Dry, Normal Color, Warm Lymphatic: No Adenopathy EKG EKG : Comments Rate of 71 Normal sinus rhythm with right bundle branch block Was a procedure done? Was a procedure done?: No CP Differential Dx Differential Diagnosis: Electrolyte Disorder Differential Diagnosis: Angina, Chest Wall Pain, Costochondritis, Esophageal reflux/spasm, Gastritis, Myocardial Infarction, Pericarditis X-Ray, Labs, Meds, VS Vital Signs Date Time Temp Pulse Resp B/P (MAP) Pulse Ox O2 Delivery O2 Flow Rate FiO2 05/07/25 15:24 98.3 70 18 95/55 98 98.3 05/07/25 14:53 71 Lab Test 05/07/25 16:02 05/07/25 15:07 Range/Units Troponin I High Sensitivity Pending 5 </=54 ng/L White Blood Count 5.8 4.4-10.8 10^3/uL Red Blood Count 4.48 L 4.5-5.90 10^6/uL Hemoglobin 13.5 13.5-17.5 g/dL Hematocrit 40.2 L 41.0-53.0 % Mean Corpuscular Volume 89.8 80.0-100.0 fL Mean Corpuscular Hemoglobin 30.2 28.0-32.0 pg Mean Corpuscular Hemoglobin Concent 33.6 32.0-36.0 g/dL Red Cell Distribution Width 13.8 11.8-14.3 % Platelet Count 259 140-450 10^3/uL Mean Platelet Volume 8.0 6.9-10.8 fL Neutrophils (%) (Auto) 57.3 37.0-80.0 % Lymphocytes (%) (Auto) 28.7 10.0-50.0 % Monocytes (%) (Auto) 10.0 0.0-12.0 % Eosinophils (%) (Auto) 3.5 0.0-7.0 % Basophils (%) (Auto) 0.5 0.0-2.0 % Neutrophils # (Auto) 3.3 1.6-8.6 10 ^3/uL Lymphocytes # (Auto) 1.6 0.4-5.4 10 ^3/uL Monocytes # (Auto) 0.6 0-1.3 10 ^3/uL Eosinophils # (Auto) 0.2 0-0.8 10 ^3/uL Basophils # (Auto) 0 0-0.2 10 ^3/uL Nucleated Red Blood Cells 0.2 % Sodium Level 144 136-145 mmol/L Potassium Level 4.5 3.5-5.1 mmol/L Chloride Level 115 H 98-107 mmol/L Carbon Dioxide Level 26 20-31 mmol/L Anion Gap 3 L 5-15 Blood Urea Nitrogen 15 9-23 mg/dL Creatinine 0.64 L 0.700-1.30 mg/dL Glomerular Filtration Rate Calc 114 >90 mL/min BUN/Creatinine Ratio 23.4 H 10.0-20.0 Serum Glucose 119 H 74-106 mg/dL Calcium Level 8.6 L 8.7-10.4 mg/dL 54-year-old male presents here with chest discomfort. Patient is a known methamphetamine user cigarette smoker history of previous stroke, with hypertension and cholesterol here with chest discomfort. [place] to have sharp pain to his mid chest with radiation to the back. On scene he was given aspirin 324 nitroglycerin by paramedics. He states pain did improve but continues to have pain. Currently states pain as 02/06. At this time blood work has been done by myself including a CBC, BMP, troponin and EKG. EKG with no significant ST changes. Troponin is negative. CBC and CMP also within normal limits. At this time however given his history I am concerned about acute coronary syndrome. He does have a heart score of 4 today. At this time hospitalist team has been contacted for admission. Time of 1ST Reevaluation: 16:10 Reevaluation 1ST: Unchanged Patient Education/Counseling: Diagnosis, Treatment, Prognosis Family Education/Counseling: No Family Present SEPSIS Sepsis Screen Date sepsis recognized/suspect: May 07, 2025 Time Sepsis recognized/suspect: 1527 Recent Procedure: No On Antibiotic Therapy: No Respiratory Rate >20: No Heart Rate >90: No Temp<36 C (96.8 F) or >38.3 C: No SBP <90 or MAP <65 mmHG: No New Acute Mental Status Change: No Is the patient on CPAP, BIPAP,: No Physician Orders Electrocardigram (05/07/25 14:55) Troponin-I Hs (05/07/25 15:55) Troponin-I Hs (05/07/25 17:55) Electrocardigram (05/07/25 15:55) Electrocardigram (05/07/25 17:55) Chest Two Views Routine (05/07/25 15:08) Morphine Sulfate Injection (05/07/25 16:15) Ondansetron Hcl (Zofran) (05/07/25 16:15) NS (05/07/25 16:15) Vital Signs Date Time Temp Pulse Resp B/P (MAP) Pulse Ox O2 Delivery O2 Flow Rate FiO2 05/07/25 15:24 98.3 70 18 95/55 98 98.3 05/07/25 14:53 71 Laboratory Tests Test 05/07/25 15:07 White Blood Count 5.8 10^3/uL (4.4-10.8) Departure 1 Departure Time of Disposition: 16:13 Impression: Primary Impression: Chest pain Qualified Codes: R07.9 - Chest pain, unspecified Additional Impression: Diarrhea Qualified Codes: R19.7 - Diarrhea, unspecified Disposition: 09 ADMITTED INPATIENT Condition: Fair Critical Care Note Critical Care Time?: No Stability Stability form required: No Heart Score Heart Score: Heart Score Response (Comments) Value History Moderate Suspicious 1 EKG Normal 0 Age 45-64 1 Risk Factors >3 or Hx ASHD 2 Troponin Normal limit 0 Total 4 I personally scribed for TJ CHRISTIE MD ([email or web address]) on 05/07/25 at 15:38. Electronically submitted by Sadaf Ontiveros ([facility]). I personally scribed for TJ CHRISTIE MD ([email or web address]) on 05/07/25 at 16:10. Electronically submitted by Sadaf Ontiveros ([facility]). TJ CHRISTIE MD May 07, 2025 15:38
[2025-05-07 15:39] LABS: BUN/Creatinine Ratio 23.4 (10.0-20.0); Blood Urea Nitrogen 15 mg/dL (9-23)
[2025-05-07 15:42] LABS: Calcium 8.6 mg/dL (8.7-10.4); Chloride 115 mmol/L (98-107); Glucose 119 mg/dL (74-106)
[2025-05-07] MEDS: SODIUM CHLORIDE 0.9% 1,000 ML IV ONE (16:16)
--- NOTE | 2025-05-07 17:01 | DVH ---
XY CHEST TWO VIEWS ROUTINE CLINICAL HISTORY: Chest pain COMPARISON: XY CHEST TWO VIEWS ROUTINE on DOS: 12/21/24, XY CHEST TWO VIEWS ROUTINE on DOS: 07/08/24, XY CHEST TWO VIEWS ROUTINE on DOS: 01/04/24 TECHNIQUE: Frontal and lateral view of the chest was obtained FINDINGS: Lines and Tubes: None Lungs: No focal consolidation. Pleura: No effusion. No pneumothorax. Cardiomediastinal contours: Unremarkable Bones: No acute osseous abnormality. IMPRESSION: 1. No acute cardiopulmonary disease.
[2025-05-07] MEDS ORDERED: DEXTROSE (50%) 50ML SYRG IV PRN (17:45)
[2025-05-07] MEDS ORDERED: DOCUSATE SOD 100 MG CAP PO PRN (17:45)
[2025-05-07] MEDS ORDERED: ACETAMINOPHEN 325 MG TAB PO PRN (17:45)
[2025-05-07] MEDS: ONDANSETRON HCL 4 MG/2 ML VIAL IV ONE (18:42)
[2025-05-07] MEDS: MORPHINE SULFATE 4 MG/ML SYR/VIAL IV ONE (18:43)
[2025-05-07 19:30] VITALS: PULSE 84; RESP 26; O2SAT 94
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
[2025-05-07] MEDS ORDERED: MORPHINE SULFATE INJ 2 MG/ml SYRG IV PRN (20:00)
[2025-05-07] MEDS ORDERED: NITROGLYCERIN 0.4 MG SL TAB SL PRN (20:00)
[2025-05-07] MEDS: ACCU-CHEK COMFORT CURVE STRIP VI SCH (21:39)
[2025-05-07] MEDS: PHENYTOIN SODIUM 100 MG CAP PO SCH (22:03)
[2025-05-07] MEDS: ATORVASTATIN 20 MG TAB PO SCH (22:03)
[2025-05-07] MEDS: SODIUM CHLOR 0.9% PF (SALINE LOCK) 10ML VIAL/SYR IV SCH (22:04)
[2025-05-07] MEDS: InsuLIN REG 1unit/0.01ml Soln (100units/ml) SC SCH (22:04)
[2025-05-07 23:10] VITALS: BP 103/67; PULSE 68; RESP 16; TEMP 97.7; O2SAT 98
[2025-05-07] MEDS: HYDROcodone-ACET 5/325MG TAB PO PRN (23:43)
[2025-05-08] VITALS (9 sets, daily range): BP systolic 92–120; BP diastolic 61–78; PULSE 57–74; RESP 16–18; TEMP 97.7–98.4; O2SAT 94–99
[2025-05-08 07:24] LABS: Hematocrit 39.2 % (41.0-53.0); Hemoglobin 13.3 g/dL (13.5-17.5); Mean Corpuscular Hemoglobin 30.7 pg (28.0-32.0); Mean Corpuscular Volume 90.9 fL (80.0-100.0); Nucleated Red Blood Cells % 0.1 %
[2025-05-08] MEDS: FAMOTIDINE (10MG/ML) 2ML VL IV SCH (08:16)
[2025-05-08 08:19] LABS: Alanine Aminotransferase 35 U/L (7-40); Albumin 3.3 g/dL (3.2-4.8); Alkaline Phosphatase 65 U/L (46-116); BUN/Creatinine Ratio 14.3 (10.0-20.0); Bilirubin, Total 0.4 mg/dL (0.2-1.0); Blood Urea Nitrogen 10 mg/dL (9-23); Carbon Dioxide 25 mmol/L (20-31); Glucose 97 mg/dL (74-106)
[2025-05-08 08:22] LABS: Calcium 8.2 mg/dL (8.7-10.4); Total Protein 5.4 g/dL (5.7-8.2)
[2025-05-08 08:53] LABS: Anion Gap 7 (5-15); Chloride 109 mmol/L (98-107); Potassium 4.5 mmol/L (3.5-5.1); Sodium 141 mmol/L (136-145)
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
[2025-05-08 19:20] LABS: COVID19 ANTIGEN SOFIA FIA NEGATIVE (NEGATIVE)
[2025-05-08] MEDS: PANTOPRAZOLE 40 MG/10 ML VIAL INJ IV ONE (19:45)
[2025-05-08] MEDS: ONDANSETRON HCL 4 MG/2 ML VIAL IV PRN (21:43)
[2025-05-09 00:50] VITALS: BP 118/74; PULSE 53; RESP 17; TEMP 97.7; O2SAT 94
[2025-05-09 04:46] VITALS: BP 112/58; PULSE 64; RESP 16; TEMP 98.6; O2SAT 99
[2025-05-09 06:52] LABS: Hematocrit 41.5 % (41.0-53.0); Hemoglobin 14.1 g/dL (13.5-17.5); Mean Corpuscular Hemoglobin 30.4 pg (28.0-32.0); Mean Corpuscular Volume 89.9 fL (80.0-100.0); Nucleated Red Blood Cells % 0.1 %
[2025-05-09 07:11] LABS: Alanine Aminotransferase 30 U/L (7-40); Alkaline Phosphatase 67 U/L (46-116); BUN/Creatinine Ratio 13.3 (10.0-20.0); Blood Urea Nitrogen 11 mg/dL (9-23); Chloride 105 mmol/L (98-107); Glucose 90 mg/dL (74-106); Potassium 4.3 mmol/L (3.5-5.1); Sodium 141 mmol/L (136-145); Total Protein 5.7 g/dL (5.7-8.2)
[2025-05-09 07:12] LABS: Albumin 3.5 g/dL (3.2-4.8); Bilirubin, Total 0.5 mg/dL (0.2-1.0)
[2025-05-09 07:14] LABS: Anion Gap 8 (5-15)
[2025-05-09 07:24] LABS: Calcium 8.7 mg/dL (8.7-10.4); Carbon Dioxide 28 mmol/L (20-31)
--- NOTE | 2025-05-09 07:24 | ECG ---
[facility] Test Date: 2025-05-07 Test Time: 14:53:51 Pat Name: FRANK ADKINS Department: [facility] ED Room: 0245T A Gender: M Pot Fluxer: clark : 1970 Requested By: TJ CHRISTIE Order Number: [id number] Reading MD: Jay Mendez Measurements Intervals [place] Rate: 71 P: 113 CA: 101 QRS: 83 QRSD: 132 T: 30 QT: 405 QTc: 441 Interpretive Statements Sinus rhythm Short CA interval Right bundle branch block Electronically Signed On 05-09-2025 10:58:19 PST by Jay Mendez Please click the below link to view image of tracing.
[2025-05-09 08:00] VITALS: PULSE 61
[2025-05-09] MEDS ORDERED: PNEUMOCOCCAL VACC POLYS 25 MCG/0.5 ML VIAL IM ONE (08:00)
[2025-05-09] MEDS: PANTOPRAZOLE 40 MG/10 ML VIAL INJ IV SCH (08:23)
[2025-05-09 09:00] VITALS: BP 107/59; PULSE 63; RESP 20; TEMP 98.4; O2SAT 100
[2025-05-09 10:28] LABS: Hepatitis B Surface Antigen Negative (Negative)
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
[2025-05-09 10:52] LABS: Hepatitis C Antibody Negative (Negative)
[2025-05-09 12:49] VITALS: BP 98/63; PULSE 67; RESP 20; TEMP 98.5; O2SAT 98
[2025-05-09] MEDS: LORazepam 0.5 MG TAB PO PRN (13:41)
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
[2025-05-09 16:45] VITALS: BP 113/43; PULSE 76; RESP 20; TEMP 98.5; O2SAT 96
--- NOTE | 2025-05-10 11:56 | DVHSR ---
APPROVED REPORT EXAM: Two-dimensional and M-mode echocardiogram with Doppler and color Doppler. Blood Pressure: 112/58 mmHg INDICATION Chest Pain RISK FACTORS Height: 5'8, Weight: 156 DIMENSIONS LVDd 3.8 (3.8-5.7cm) LA (2D) 3.4 (1.9-4.0cm) Aortic Root 2.7 (2.0-3.7cm) LVDs 2.4 (2.5-4.0cm) LA (MM) (1.9-4.0cm) Aortic Cusp Exc 1.8 (1.5-2.0cm) EF (%) 66.0 (55-70%) Rt. Atrium 4.2 (1.9-4.0cm) Asc. Aorta 2.6 cm IVSd 1.2 (0.7-1.1cm) RV (D) (1.8-2.4cm) PWd 1.1 (0.7-1.1cm) Mitral Valve Mitral Mitral Stenosis E wave 0.93m/s MV Mean GR. mmHg A wave 0.80m/s MV Peak GR. mmHg E/A ratio 1.2 2D MVA cm2 DECEL Time 281ms PRESS 1/2 Time ms Aortic Valve Aortic Valve Aortic Stenosis V1 1.33m/s AO Mean GR. 4mmHg V2 1.40m/s AO Peak GR. 8mmHg LVOT Diameter 2.0 (1.8-2.4cm) Doppler CHEKO 2.98cm2 Pulmonic Valve V2 1.12m/s Conclusion lvef 65% normal lvef mild LVH normal rv function normal atria no severe valve abnormalities noted normal pericardium
--- NOTE | 2025-05-11 12:01 | ECG ---
[facility] Test Date: 2025-05-10 Test Time: 18:35:44 Pat Name: FRANK ADKINS Department: Room: 0245T Gender: M Graphics Manager: JACQUELINE : 1970 Requested By: TJ CHRISTIE Order Number: [id number] Reading MD: Measurements Intervals [place] Rate: 78 P: 11 ME: 114 QRS: 100 QRSD: 132 T: 27 QT: 384 QTc: 438 Interpretive Statements Sinus rhythm Borderline short ME interval RBBB and LPFB Please click the below link to view image of tracing.
== END 2025-05-09 18:45 | disposition home or self-care (01) | DRG 203 ==
LOC: ER 14:52 → EDBD 14:52 → OVERFLOW 19:49 → TELE-EAST 23:03
PROVIDERS: ADMIT Student in an Organized Health Care Education/Training Program; ATTEND Student in an Organized Health Care Education/Training Program
DX: M94.0 Chondrocostal junction syndrome [Tietze] (principal); Z59.00 Homelessness unspecified; R56.9 Unspecified convulsions; F15.10 Other stimulant abuse, uncomplicated; I10 Essential (primary) hypertension; F32.A Depression, unspecified; E11.9 Type 2 diabetes mellitus without complications; F20.9 Schizophrenia, unspecified; I95.9 Hypotension, unspecified; R19.7 Diarrhea, unspecified; Z20.822 Contact with and (suspected) exposure to COVID-19; F17.210 Nicotine dependence, cigarettes, uncomplicated; F41.9 Anxiety disorder, unspecified; E78.5 Hyperlipidemia, unspecified; Z91.013 Allergy to seafood; Z88.1 Allergy status to other antibiotic agents; Z88.0 Allergy status to penicillin; Z88.2 Allergy status to sulfonamides; Z91.010 Allergy to peanuts
CPT/HCPCS: 36415; 71046; 80048; 80053; 82962; 83036; 83880; 84484; 85025; 86803; 87081; 87340; 87426; 87804; 93005; 93306; 96361; 96374; 96375; G0378; J1815; J2405; J2470; J3490

== ENCOUNTER 2025-05-27 21:22 | Emergency (ER) | payer MEDICAID ==
[~2025-05-27] VITALS: Ht 172.7 cm; Wt 68.1 kg
[~2025-05-27 21:22] MED LIST changes: -ACET500T58 PO; -AZIT500T66 PO; -AZITTAB PO; -BACDST PO; -CEPH-510 PO; -CIPR-173 PO; -DOXY100C79 PO; -FAMO20TA58; -METH4PAK PO; -NITR-87 PO; -PRED20TA2 PO
--- NOTE | 2025-05-27 22:14 | DVH ---
CHEST RADIOGRAPH REASON FOR EXAM: SHORTNESS OF BREATH COMPARISON: XR CHEST 1 VIEW on DOS: 05/11/25, XY CHEST XRAY 1 VIEW on DOS: 05/10/25, XR CHEST 1 VIEW on DOS: 04/28/24, XY CHEST PORTABLE on DOS: 04/28/24, XY CHEST PORTABLE on DOS: 06/27/23 TECHNIQUE: One view of the chest is provided FINDINGS: The cardiomediastinal silhouette is within normal limits for technique. There is no focal airspace disease. There is no significant pleural effusion. No acute bony abnormality is identified. IMPRESSION: No radiographic evidence of acute cardiopulmonary process.
[2025-05-27 22:52] LABS: COVID19 ANTIGEN SOFIA FIA NEGATIVE (NEGATIVE)
--- NOTE | 2025-05-27 23:26 | ED.PDOC ---
SOB-HPI HPI Comments PT BIBA FOR FLU-LIKE S/S: SORE THROAT, PRODUCTIVE PHLEGM AND DIARRHEA X1-2 DAYS. GCS-15, ALL VSS. DENIES CHEST PAIN, DIFFICULTY BREATHING, SHORTNESS OF BREATH, FEVER, OR RECENT TRAVEL Chief Complaint: Flu like Time Seen by MD: 21:42 Primary Care Provider: DEA aBrajas notes: Nurses Notes, Umbrella Tipper Notes, Medications, Allergies Information Source: Patient Mode of Arrival: EMS Past Medical History PAST MEDICAL HISTORY: Anxiety, Depression, DM, High Lipids, HTN, Schizophrenia, Seizures Family History Family History: Unknown Social History Smoker: Cigarettes, Less Than 1 Pack/Day Alcohol: Occasionally Drugs: Methamphetamine Lives In: Homeless All Other Systems: Reviewed and Negative (SEE HPI) Physical Exam General Appearance: No Apparent Distress, Normal HEENT: Pharyngeal Erythema, TMs Normal Neck: Full Range of Motion, Non-Tender Respiratory: Chest Non-Tender, Lungs Clear, No Accessory Muscle Use, No Respiratory Distress, Normal Breath Sounds Cardiovascular: No Edema, No JVD, No Murmur, No Gallop, Normal Peripheral Pulses, Regular Rate/Rhythm Breast Exam: Deferred Gastrointestinal: No Organomegaly, Non Tender, No Pulsatile Mass, Normal Bowel Sounds, Soft Genitalia: Deferred Pelvic: Deferred Rectal: Deferred Extremities: Normal capillary refill, Normal range of motion Musculoskeletal : Apperance: Normal Neurologic: Alert, No Motor Deficits, Normal Affect, Normal Mood, No Sensory Deficits Cerebellar Function: Normal Reflexes: NOT DONE Skin: Dry, Normal Color, Warm Lymphatic: No Adenopathy Was a procedure done? Was a procedure done?: No Differential Dx Differential Diagnosis: Bronchitis, Pneumonia, Sinusitis, Allergic Rhinitis, Otitis Media, Peritonsillar Abscess, Peritonsillar Cellulitis, Pharyngitis, URI X-Ray, Labs, Meds, VS Vital Signs Date Time Temp Pulse Resp B/P (MAP) Pulse Ox O2 Delivery O2 Flow Rate FiO2 05/27/25 21:37 99.0 81 16 124/76 99 99.0 Lab Test 05/27/25 22:00 Range/Units Influenza Type A Antigen Negative Negative Influenza Type B Antigen Negative Negative SARS-CoV-2 Antigen (Rapid) Negative NEGATIVE X-Ray, Labs, Meds, VS Comment INFLUENZA AND COVID SWAB NEGATIVE CHEST X-RAY SHOWS NO CARDIOPULMONARY ACUTE FINDINGS. AND PHYSICAL EXAM GROSSLY BENIGN. LIKELY COMMON COLD. ADVISED TO REST INCREASE P.O. FLUIDS WITH ELECTROLYTES [id number] TYLENOL OR MOTRIN NEEDED FOR FEVER OR PAIN. FOLLOW UP WITH YOUR PCP IN 2-3 DAYS NECESSARY ER RETURN PRECAUTIONS GIVEN PATIENT INDICATES UNDERSTANDING AND AGREES WITH DISCHARGE PLAN OF CARE Images Reviewed?: Images reviewed and evaluated by me Time of 1ST Reevaluation: 21:42 Reevaluation 1ST: Unchanged Time of 2ND Reevaluation: 23:25 Reevaluation 2ND: Improved Patient Education/Counseling: Diagnosis, Treatment, Need For Follow Up Family Education/Counseling: No Family Present SEPSIS Sepsis Screen Date sepsis recognized/suspect: May 27, 2025 Time Sepsis recognized/suspect: 2127 Recent Procedure: No On Antibiotic Therapy: No Respiratory Rate >20: No Heart Rate >90: No Temp<36 C (96.8 F) or >38.3 C: No SBP <90 or MAP <65 mmHG: No New Acute Mental Status Change: No Is the patient on CPAP, BIPAP,: No Physician Orders Chest Portable (05/27/25 21:43) Vital Signs Date Time Temp Pulse Resp B/P (MAP) Pulse Ox O2 Delivery O2 Flow Rate FiO2 05/27/25 21:37 99.0 81 16 124/76 99 99.0 Departure 1 Departure Time of Disposition: 23:25 Impression: Primary Impression: Acute nasopharyngitis (common cold) Disposition: 01 HOME / SELF CARE / HOMELESS Condition: Stable Discharged With: Self Critical Care Note Critical Care Time?: No Stability Stability form required: No Heart Score Heart Score: Heart Score Response (Comments) Value History N/A 0 EKG N/A 0 Age 45-64 1 Risk Factors N/A 0 Troponin N/A 0 Total 1 BRITTANIE RYDER May 27, 2025 23:26
[2025-05-27 23:35] VITALS: BP 116/80; PULSE 87; RESP 14; TEMP 97.8; O2SAT 100
== END 2025-05-27 23:35 | disposition home or self-care (01) ==
LOC: ER 21:22 → EDBD 21:22 → ER 23:35
DX: J00 Acute nasopharyngitis [common cold] (principal); R19.7 Diarrhea, unspecified; E11.9 Type 2 diabetes mellitus without complications; F17.210 Nicotine dependence, cigarettes, uncomplicated; F20.9 Schizophrenia, unspecified; I10 Essential (primary) hypertension; Z20.822 Contact with and (suspected) exposure to COVID-19
CPT/HCPCS: 36415; 71045; 87426; 87804